=== PATIENT | male | born 1935 | race Caucasian/White ===

== ENCOUNTER 2017-05-22 13:05 | Inpatient (IN) | payer MEDICARE, OTHER ==
[2017-05-22 13:09] VITALS: BMI 25.4
--- NOTE | 2017-05-22 14:17 | ED PDOC ---
Arrival/HPI - General Chief Complaint: Trauma Time Seen by Provider: 05/22/17 14:03 Historian: Patient - History of Present Illness Narrative History of Present Illness (Text): 05/22/17 14:17 A 81 year old male, whose past medical history includes chronic back pain, presents to the emergency department for evaluation after a mechanical fall yesterday. Patient reports while ambulating with his walker out of the bathroom he tripped and fell on his left side. Since then, patient has been experiencing pain over his left lower lateral ribs, accompanied by left lower extremity pain. He notes his left leg is more swollen compared to his right leg. Patient denies any loss of consciousness, head trauma, headache, neck pain , nausea, vomiting, chest pain, shortness of breath or any other complaints. PMD: Dr. Smith Time/Duration: Other (Yesterday) Symptom Course: Unchanged Context: Walking, Home Past Medical History - Provider Review Nursing Documentation Reviewed: Yes - Infectious Disease Hx of Infectious Diseases: None - Tetanus Immunization Tetanus Immunization: Unknown - Cardiac Hx Cardiac Disorders: No - Pulmonary Hx Respiratory Disorders: No Hx Asthma: (denies) - Neurological Hx Neurological Disorder: No - HEENT Hx HEENT Disorder: No - Renal Hx Renal Disorder: No - Endocrine/Metabolic Hx Endocrine Disorders: No - Hematological/Oncological Hx AIDS: No Hx Cancer: Yes (prostate with radiation) - Integumentary Hx Dermatological Disorder: No - Musculoskeletal/Rheumatological Hx Falls: No - Gastrointestinal Hx Gastrointestinal Disorders: Yes (CONSTIPATION (CHRONIC),BOWEL OBSTRUCTION,) - Genitourinary/Gynecological Hx Genitourinary Disorders: No Hx Reproductive Disorders: Yes (PROSTATE CA WITH H/O OF RADIATION) - Psychiatric Hx Psychophysiologic Disorder: No Hx Substance Use: No - Surgical History Other/Comment: lumbar decompression laminectomy - Anesthesia Hx Anesthesia: Yes Hx Anesthesia Reactions: No Hx Malignant Hyperthermia: No - Suicidal Assessment Feels Threatened In Home Enviroment: No Family/Social History - Physician Review Nursing Documentation Reviewed: Yes Family/Social History: No Known Family HX Smoking Status: Never Smoked Hx Alcohol Use: No Hx Substance Use: No Hx Substance Use Treatment: No Allergies/Home Meds Allergies/Adverse Reactions: Allergies No Known Allergies Allergy (Verified 05/29/15 22:25) Home Medications: Home Meds Medication Instructions Recorded Confirmed LORazepam [Ativan] 0.5 mg PO HS PRN 05/26/15 05/22/17 Multivitamin and [id number] 1 tab PO DAILY 05/26/15 06/07/15 [B-Complex Vit Plus] Tizanidine Hydrochloride 4 mg PO HS 05/26/15 06/07/15 [Tizanidine HCl] Docusate [Colace] 100 mg PO BID 05/22/17 05/22/17 Pregabalin [Lyrica] 100 mg PO TID 05/22/17 05/22/17 Vitamin B Complex [Balance B-100] 1 tab PO DAILY 05/22/17 05/22/17 traMADol [Ultram] 1 tab PO BID 05/22/17 05/22/17 Physical Exam - Physical Exam Narrative Physical Exam (Text): - Review of Systems Constitutional: Normal. absent: Fatigue, Weight Change, Fevers Eyes: Normal ENT: Normal Respiratory: Normal absent: SOB, Cough, Sputum Cardiovascular: Normal absent: Chest pain, Palpitations, Syncope Gastrointestinal: Normal absent: Abdominal pain, Diarrhea, Nausea, Vomiting Genitourinary: Normal. absent: Dysuria, Frequency, Hematuria Musculoskeletal: (+) Left lower lateral rib pain, left lower extremity pain and swelling. absent: Arthralgias, Back Pain, Neck Pain Skin: Normal Neurological: Normal absent: Focal Weakness Endocrine: Normal Hemo/Lymphatic: Normal Psychiatric: Normal - Physical exam Patient appears age appropriate, speaking full sentences without difficulty Head atraumatic. No nasal bone deformity or tenderness, no facial or jaw pain/ swelling. No neck midline tenderness, thoracic and lumbar spine with no midline tenderness. Pt moving b/l upper and lower extremities without difficulty, 5/5 strength, with full active and passive ROM. Distal neurovasc fully intact. Abd soft/nt/nd, no hematomas, no peritoneal signs. Neg. pelvic rock. - Systems Exam Head: Present: Atraumatic, Normocephalic Pupils: Present: PERRL Extraocular Muscles: Present: EOMI Conjunctiva: Present: Normal Mouth: Present: Moist Mucous Membranes Neck: Present: Normal Range of Motion. No: MIDLINE TENDERNESS, Paraspinal Tenderness Respiratory/Chest: Present: Point tenderness to left lower lateral ribs with small superficial bruising. Clear to Auscultation, Good Air Exchange. No: Respiratory Distress, Accessory Muscle Use, Tachypnic Cardiovascular: Present: Regular Rate and Rhythm, Normal S1, S2, Peripheral Pulses Present. No: Murmurs Abdomen: Present: Normal Bowel Sounds, No: Tenderness, Peritoneal Signs, Rebound, Guarding, Distention Back: Present: Normal Inspection. No: Midline Tenderness, Paraspinal Tenderness Upper Extremity: Present: Normal Inspection. No: Cyanosis, Edema Lower Extremity: Present: Left lower extremity significantly more swollen than right. Positive pulse. No discoloration. Normal appearing skin, warm to touch. Neurological: Present: GCS=15, Speech Normal, cranial nerves II through XII fully intact with no cerebellar abnormality, neuro-sensory fully intact. No focal neurological deficits. Skin: Present: Warm, Dry, Normal Color. No: Rashes Lymphatic: Present: OX3, NI, NC Psychiatric: Present: Alert, Oriented x 3, Normal Insight, Normal Concentration Vital Signs Reviewed: Yes Vital Signs Temp Pulse Resp BP Pulse Ox 05/22/17 13:27 97.8 F 72 18 174/82 H 97 Temperature: Afebrile Blood Pressure: Hypertensive Pulse: Regular Respiratory Rate: Normal Appearance: Positive for: Well-Appearing, Non-Toxic, Comfortable Pain Distress: None Mental Status: Positive for: Alert and Oriented X 3 Medical Decision Making ED Course and Treatment: 05/22/17 14:17 Impression: A 81 year old male with left lower lateral rib pain and left lower extremity pain/swelling after a mechanical fall yesterday. Plan: -- Head CT -- Bilateral duplex lower extremity ultrasound -- Left Ankle XR -- Left Knee w/ Patella XR -- Left Rib XR -- Left Hip XR -- EKG -- Labs -- Toradol -- Reassess and disposition Progress Notes: EKG: Ordered, reviewed, and independently interpreted the EKG. Rate : 87 BPM Rhythm : NSR Interpretation : No ST-segment elevations, normal axis, normal intervals, PVCs. Interpreted by me. 05/22/17 16:22 sahil [employer], states pt has L. DVT lovenox ordered Dr. Sarah shannon, awaiting callback 05/22/17 16:29 sahil Smith, agrees with admission, asked to speak with Dr. Gaines who's covering CT Head Dr. Mackey IMPRESSION: No acute intracranial hemorrhage. Moderate chronic white matter ischemic changes. Moderate central volume loss. sahil Gaines, accepted admission pt aware of and agrees with plan 05/22/17 16:39 xrays show no acute fx's or dislocations pt's rib series captured some bowel as well, shows some dilated loops. No air fluid levels. Pt states he has a long standing hx of constipation and that he has no abd pain, no n/v. Pt's abd is soft/nt/nd - Lab Interpretations Lab Results: 05/22/17 14:25 05/22/17 14:25 Lab Results 05/22/17 14:25: Sodium 139, Potassium 3.9, Chloride 102, Carbon Dioxide 29, Anion Gap 12, BUN 19, Creatinine 0.7, Est GFR ( Amer) > 60, Est GFR (Non- Af Amer) > 60, Random Glucose 94, Calcium 9.1, Total Bilirubin 0.9, AST 20, ALT 18, Alkaline Phosphatase 72, Total Protein 6.7, Albumin 3.8, Globulin 2.9, Albumin/Globulin Ratio 1.3 05/22/17 14:25: WBC 5.4, RBC 4.60, Hgb 12.5 L, Hct 36.8 L, MCV 80.0, MCH 27.2, MCHC 34.0, RDW 13.9, Plt Count 143, MPV 10.0, Gran % 70.2 H, Lymph % (Auto) 18.2 L, Boone % (Auto) 9.5 H, Eos % (Auto) 1.5, Baso % (Auto) 0.6, Gran # 3.79, Lymph # 1.0 L, Boone # 0.5, Eos # 0.1, Baso # 0.03 I have reviewed the lab results: Yes - RAD Interpretation Radiology Orders: 05/22/17 14:14 HEAD W/O CONTRAST [CT] Stat DUPLEX LOWER EXTRM VEIN BILAT [US] Stat 05/22/17 14:15 RIBS LEFT & PA CHEST [RAD] Stat 05/22/17 14:16 ANKLE LEFT 3 VIEWS ROUTINE [RAD] Stat HIP MIN 2V W/ PELVIS GAUTAM [RAD] Stat KNEE LEFT 2 VIEWS (AP & LAT) [RAD] Stat - Medication Orders Current Medication Orders: Discontinued Medications Enoxaparin Sodium (Lovenox) 70 mg SC STAT STA PRN Reason: Protocol Stop: 05/22/17 16:22 Ketorolac Tromethamine (Toradol) 30 mg IM STAT STA Stop: 05/22/17 14:16 Last Admin: 05/22/17 14:51 Dose: 30 mg - Scribe Statement The provider has reviewed the documentation as recorded by the Lawanda Ponce training under Malathi Reynoso Provider Scribe Attestation: All medical record entries made by the Scribe were at my direction and personally dictated by me. I have reviewed the chart and agree that the record accurately reflects my personal performance of the history, physical exam, medical decision making, and the department course for this patient. I have also personally directed, reviewed, and agree with the discharge instructions and disposition. Disposition/Present on Arrival - Present on Arrival Any Indicators Present on Arrival: No History of DVT/PE: No History of Uncontrolled Diabetes: No Urinary Catheter: No History of Decub. Ulcer: No History Surgical Site Infection Following: None - Disposition Have Diagnosis and Disposition been Completed?: Yes Diagnosis: DVT (deep venous thrombosis) Disposition: HOSPITALIZED Disposition Time: 16:34 Patient Plan: Admission Condition: FAIR Referrals: Kian Smith MD [Primary Care Provider] - Follow up with primary Forms: Scancell (Latvian)
[2017-05-22 14:54] LABS: BASO # 0.03 K/mm3 (0.0-2.0); BASO % 0.6 % (0.0-3.0); EOS # 0.1 (0.0-0.7); EOS % 1.5 % (1.5-5.0); GRAN # 3.79 (1.4-6.5); GRAN % 70.2 % (50.0-68.0); HEMOGLOBIN 12.5 gm/dL (14.0-18.0); LYMPH % 18.2 % (22.0-35.0); MEAN CORPUSCULAR HEMOGLOBIN 27.2 pg (25.0-35.0); MONO # 0.5 (0.1-0.6); MONO % 9.5 % (1.0-6.0); PLATELET COUNT 143 10^3/uL (120.0-450.0); RED CELL DISTRIBUTION WIDTH 13.9 % (11.5-14.5); WHITE BLOOD COUNT 5.4 10^3/ul (4.5-11.0)
[2017-05-22 15:04] LABS: ALB/GLOB RATIO 1.3 (1.1-1.8); ALBUMIN 3.8 g/dL (3.0-4.8); ALT/SGPT 18 U/L (7-56); AST/SGOT 20 U/L (15-59); BLOOD UREA NITROGEN 19 mg/dL (7-21); CALCIUM 9.1 mg/dL (8.4-10.5); GFR AFRICAN-AMERICAN > 60; GFR NON-AFRICAN AMERICAN > 60
--- NOTE | 2017-05-22 15:14 | CT ---
PROCEDURE: CT HEAD WITHOUT CONTRAST. HISTORY: fall COMPARISON: None available. TECHNIQUE: Axial computed tomography images were obtained through the head/brain without intravenous contrast. Radiation dose: Total exam DLP = 769.41 mGy-cm. This CT exam was performed using one or more of the following dose reduction techniques: Automated exposure control, adjustment of the mA and/or kV according to patient size, and/or use of iterative reconstruction technique. FINDINGS: HEMORRHAGE: No acute parenchymal, subarachnoid nor extra-axial hemorrhage. BRAIN: Moderate diffuse/confluent chronic white matter ischemic changes again seen extending peripherally into the deep and subcortical white matter both cerebral hemispheres. . There may also be small chronic appearing right pontine lacunar type infarct. Moderate central volume loss evidenced by disproportionate enlargement of the ventricles as compared sulci. Vascular calcifications again noted. VENTRICLES: No evidence of obstructive type hydrocephalus. Prominent left ring cisterna magna. CALVARIUM: There are no acute calvarial fracture seen. PARANASAL SINUSES: Unremarkable as visualized. No significant inflammatory changes. MASTOID AIR CELLS: Unremarkable as visualized. No inflammatory changes. OTHER FINDINGS: None. IMPRESSION: No acute intracranial hemorrhage. Moderate chronic white matter ischemic changes. Moderate central volume loss.
[2017-05-22] MEDS ORDERED: Enoxaparin 80 mg Syringe SC STA (16:21)
--- NOTE | 2017-05-22 16:46 | RAD ---
PROCEDURE: Left ankle 05/22/17 HISTORY: fall COMPARISON: None FINDINGS: BONES: Current study reveals no definitive radiographic evidence of acute displaced fracture nor dislocation. Osseous structures occluded talar dome appear intact so far as can be seen through clothing artifact. If symptoms persist or occult fracture suspected clinically recommend repeat radiographs in 5-10 days as most fractures should become radiographically evident in this timeframe. Alternatively, MRI could be performed. For cyst. Small plantar and posterior calcaneal enthesophytes a present JOINTS: Ankle mortise maintained. SOFT TISSUES: Mild bilateral diffuse soft tissue swelling with infiltration changes extend proximally into distal soft tissues of the calf. OTHER FINDINGS: None. IMPRESSION: No evidence of acute displaced fracture nor dislocation. Mild bilateral diffuse soft tissue swelling with infiltration changes extend proximally into distal soft tissues of the calf. If symptoms persist or occult fracture suspected clinically recommend repeat radiographs in 5-10 days as most fractures should become radiographically evident in this timeframe.
--- NOTE | 2017-05-22 17:01 | RAD ---
PROCEDURE: Left Knee Radiographs. HISTORY: Pain. COMPARISON: No prior study available comparison FINDINGS: BONES: Current study reveals no evidence of acute displaced fracture or dislocation. JOINTS: There is slight inferior angulation of the aspect medial tibial plateau which is felt to be developmental. . . Small anterior superior patella enthesophyte. JOINT EFFUSION: Questionable trace joint effusion. OTHER FINDINGS: There appears be some vague infiltration changes in the subcutaneous tissues more so laterally IMPRESSION: No evidence of acute displaced fracture nor dislocation.
--- NOTE | 2017-05-22 17:05 | RAD ---
PROCEDURE: Pelvis and bilateral hips dated 05/21/2017 AP view of the pelvis and lateral views both hips performed HISTORY: Status post fall COMPARISON: Comparison made with prior radiographs of the pelvis and both hips 06/04/2015. FINDINGS: The current study reveals no evidence of acute displaced fracture nor dislocation. The osseous structures appear intact. Both femoral heads appropriately located within the respective acetabula. Mild bilateral joint space narrowing. . The SI joints are intact and patent. If symptoms persist or occult fracture suspected clinically consider followup CT scan. Mild degenerative spondylosis of the lower lumbosacral 1st caps spine Impression: No evidence of acute displaced fracture nor dislocation. Mild DJD both hip joints. . If symptoms persist or occult fracture suspected clinically consider additional imaging studies as above.
--- NOTE | 2017-05-22 17:16 | RAD ---
PROCEDURE: Chest and left rib series 05/22/2027 the HISTORY: Status post fall. COMPARISON: Comparison made with prior chest radiograph 04/20/2015 TECHNIQUE: Frontal radiograph of the chest and multiple oblique radiographs of the left ribs were obtained. FINDINGS: LEFT RIBS: Note definitive radiographic evidence of acute displaced left-sided rib fracture. Note that the lower ribs are poorly seen due to bowel related artifact (stool and air). LUNGS: Poor inspiration with low lung volumes, mild crowded bronchovascular markings and mild bibasilar atelectasis left greater than right. PLEURA: No no apparent effusion or pneumothorax so far as can be seen. CARDIOVASCULAR: Heart size upper limits of normal/borderline enlarged. Aorta is slightly ectatic and uncoiled. OTHER FINDINGS: Metallic clips right upper quadrant of the abdomen consistent prior cholecystectomy. Multiple mildly distended air-filled loops of bowel present. Multilevel degenerative spondylosis of the thoracic and lumbar spine. There is a mild dextroscoliosis centered at the thoracolumbar junction. IMPRESSION: Poor inspiration with low lung volumes, mild crowded bronchovascular markings and mild bibasilar atelectasis. No definitive evidence of pneumothorax or obvious acute displaced left-sided rib fracture however if there is any concern, recommend followup CT scan of the chest.
[2017-05-22] MEDS ORDERED: Ergocalciferol 50,000 Intl Units Cap PO SCH (18:15)
--- NOTE | 2017-05-22 18:25 | US ---
HISTORY: Leg pain and swelling. Evaluate for DVT PHYSICIAN(S): Patrick Luong MD. TECHNIQUE: Duplex sonography and color-flow Doppler with graded compression were used to evaluate the deep venous systems of both lower extremities. FINDINGS: There is occlusive hypoechoic thrombus seen in the left common femoral vein and throughout the left femoral vein. The left popliteal vein is patent. The superior extent of the thrombus is not defined. There is no sonographic evidence for deep venous thrombosis in the visualized segments of the right lower extremity IMPRESSION: Hypoechoic acute occlusive thrombus in the left common femoral vein and throughout the left femoral vein.
[2017-05-22] MEDS: Enoxaparin 80 mg Syringe SC SCH (18:28)
[2017-05-22] MEDS ORDERED: Pneumococcal 23-Valent Vaccine IM ONE (20:44)
--- NOTE | 2017-05-22 22:46 | CARD ---
APPROVED REPORT EKG Measurement Heart [id number] <Conclusion> Sinus rhythm with occasional premature ventricular complexes Left anterior fascicular block Abnormal ECG
[2017-05-23] MEDS: Enoxaparin 80 mg Syringe SC SCH ×2 (05:48→18:41)
--- NOTE | 2017-05-23 06:00 | HP ---
HISTORY OF PRESENT ILLNESS: The patient is seen in the emergency room. This is a patient of Dr. Kian Smith. I am covering for him. The patient presented to the emergency room with severe pain in the left side of the rib and the lower back. He stated he had a fall and since then, his left leg has been swollen and he had discomfort on the left side and he came in for medical evaluation. The patient was seen in the emergency room by a physician here and evaluated. The patient's swelling in the leg is noted. They did ultrasound Doppler study of the leg, deep venous thrombosis was diagnosed. The patient also has a past history of lumbar surgery, laminectomy. The patient has past history of hypertension and hyperlipidemia. The patient has no history of any other surgery. ALLERGIES: HE HAS NO KNOWN ALLERGIES. He does not have living will. The patient's complaint now is that he has pain and the swelling of the leg. The patient has been admitted to the hospital for treatment for DVT and the patient will be given the Lovenox twice a day and we will monitor the patient for his general medical condition. PHYSICAL EXAMINATION: GENERAL: The patient is lying down in bed and he is very pleasant. He has some pain and discomfort on the left side in the lower ribs and the lower back. The patient also has swelling on the left leg which is new. HEENT: Head is normocephalic. The patient's eyes are normal. NECK: The JVP is flat. There is no lymphadenopathy in the neck. LUNGS: Trachea is central. Breath sounds are vesicular. No adventitious sounds are heard. HEART: NSR. S1 and S2 present. ABDOMEN: Soft. Liver and spleen not palpable. No ascites. No masses. RECTAL: Deferred, but the patient has chronic history of constipation. Apparently, the patient has had prostate carcinoma, and he has had radiation treatment in the past. MANAGER PHILOSOPHY: He is conscious, rational, oriented. His cranial nerves are intact II through XII. His sense of smell is intact. MOTOR AND SENSORY FUNCTION: There are no abnormalities clinically detected. The patient's cerebral function is not tested at this time. The patient is not able to get up and walk, does this with difficulty. He has had a fall, but he has had ability to ambulate in the past. The patient's leg of course shows evidence of swelling, and he does not have a positive Homans sign, though the DVT is detected by ultrasound. MEDICATION LIST: The patient is on Ativan 0.5 mg at night p.r.n. The patient is on Colace 3 times a day. The patient is on Flomax 0.4 mg daily, folic acid 1 mg daily. The patient is on Lidoderm patch for back pain, Lipitor 40 mg daily. The patient has been placed on Lovenox 30 mg SQ q.12 hours. The patient is going to be put on Lyrica. The patient has been taking that before 100 mg 3 times a day. The patient is on MiraLAX 17g 3 times a day, Neurontin 100 mg 3 times a day, Proscar 5 mg daily, atenolol 12.5 mg daily, and the patient is also on Tramadol p.r.n. for pain, vitamin D 2000 units p.o. daily. He is on a heart healthy diet. The patient will be evaluated for his problems. His lungs are clear. Pulmonary function seems to be clinically okay at this time. LABORATORY DATA: The sugar is 94. His BUN and creatinine are within normal limits. His GFR is within normal limits. His hemoglobin is 12.5, his white count is 5400, and platelet count is good. His total platelet count is around 420,000 at this time. We will monitor the patient's blood work. Continue the Lovenox as started, and we will continue all his medications. Now that he has been detected and treated, his prognosis should be good. His, overall, condition is stable at this time. Nuvia Oconnor MD MTDD
[2017-05-23 07:42] LABS: BASO # 0.02 K/mm3 (0.0-2.0); BASO % 0.4 % (0.0-3.0); EOS # 0.2 (0.0-0.7); GRAN # 2.59 (1.4-6.5); GRAN % 53.8 % (50.0-68.0); HEMOGLOBIN 11.1 gm/dL (14.0-18.0); LYMPH # 1.6 (1.2-3.4); LYMPH % 32.2 % (22.0-35.0); MEAN CELL VOLUME 79.8 fL (80.0-105.0); MEAN CORPUSCULAR HEMOGLOBIN 26.1 pg (25.0-35.0); MEAN CORPUSCULAR HGB CONC 32.6 g/dl (31.0-37.0); MEAN PLATELET VOLUME 10.3 fl (7.0-11.0); MONO # 0.5 (0.1-0.6); MONO % 9.6 % (1.0-6.0); PLATELET COUNT 157 10^3/uL (120.0-450.0); RBC 4.26 10^6/uL (3.5-6.1); RED CELL DISTRIBUTION WIDTH 14.2 % (11.5-14.5); WHITE BLOOD COUNT 4.8 10^3/ul (4.5-11.0)
[2017-05-23 08:00] LABS: ALB/GLOB RATIO 1.2 (1.1-1.8); ALBUMIN 3.2 g/dL (3.0-4.8); ALT/SGPT 23 U/L (7-56); AST/SGOT 18 U/L (15-59); BLOOD UREA NITROGEN 24 mg/dL (7-21); CALCIUM 8.5 mg/dL (8.4-10.5); GFR AFRICAN-AMERICAN > 60; GFR NON-AFRICAN AMERICAN > 60
[2017-05-23] MEDS: POLYETHYLENE GLYCOL 3350 17 GM/Dose PACKET PO SCH ×3 (10:29→18:40)
[2017-05-23] MEDS: Lidocaine 5% Patch TD SCH (10:29)
[2017-05-23] MEDS: Albuterol-Ipratrop 3 mg / 0.5 (3 ml) UD IH SCH ×2 (13:15→19:56)
[2017-05-23] MEDS ORDERED: Iohexol 240 (50 ml) ONE (17:18)
[2017-05-23] MEDS ORDERED: Iohexol 350 MG/100 ML VIAL ONE (17:18)
[2017-05-23 17:49] LABS: INR 0.99 (0.93-1.08); PARTIAL THROMBOPLASTIN TIME 32.8 Seconds (23.7-30.8); PROTHROMBIN TIME 10.7 Seconds (9.9-11.8)
[2017-05-23 17:54] LABS: HDL CHOLESTEROL 35 mg/dL (29-60); URIC ACID 5.2 mg/dL (3.5-8.5)
[2017-05-23 18:05] LABS: LDL CHOLESTEROL 127 mg/dL (0-129)
[2017-05-23 18:06] LABS: % IRON SATURATION 11 % (20-55); IRON 32 ug/dL (45-180); TOTAL IRON BINDING CAPACITY 296 ug/dL (261-462)
[2017-05-23 18:14] LABS: FREE T4 1.38 ng/dL (0.78-2.19); T4 7.9 ug/dL (5.5-11.0)
--- NOTE | 2017-05-23 18:28 | PN ---
DATE: 05/23/2017 SUBJECTIVE: The patient was seen in room 262, bed 1. The patient's family is at the bedside. The patient is lying in the bed. The patient is alert, awake, responsive. The patient appears to be comfortable in no distress at present. The patient complains of left leg pain, which is relatively less since his admission to the emergency room yesterday. The patient denies any specific complaints otherwise. Overnight nurse's notes were reviewed. The patient slept overnight. PHYSICAL EXAMINATION: VITAL SIGNS: T-Max, the patient is afebrile, telemetry shows sinus rhythm with some PVCs, heart rate 78-76 and blood pressure of 174/82, 112/70, 114/67, 118/69, and O2 saturation 98%. Intake and output not documented correctly. HEENT: Head examination is normocephalic and atraumatic. HEENT examination shows pinkish conjunctivae and anicteric sclerae. No oropharyngeal lesion. No neck rigidity. CHEST: Kyphosis. LUNGS: Shows no rales, crackles, or wheezing. Questionable decreased breath sound at the bases noted. CARDIOVASCULAR: S1 and S2. Regular rhythm. ABDOMEN: Soft, slightly protuberant and fullness noted in the lower abdomen. GENITALIA: Male. RECTAL: Deferred. EXTREMITIES: Shows positive 2+ pitting edema of the left lower extremity and 1+ pitting edema of the right lower extremity. The patient has decreased range of motion of the lower extremity. VASCULAR: Decreased pulses because of the pitting edema. MUSCULOSKELETAL: She has a body mass index of 26. NEUROLOGIC: Cranial nerves II through XII limited. PSYCHIATRIC: Negative. LABORATORY DATA: Diagnostic data from 05/23/2017, WBC 4.8, hemoglobin and hematocrit 11.1/34.0, platelets 157. Sodium 137, potassium 4.1, chloride 102, CO2 26, anion gap 13, BUN 24, creatinine 1.8, GFR greater than 60, glucose 97, LFTs are normal. The patient's venous Doppler, CT head, rib series, ankle series, hip x-rays, knee x-rays reviewed. EKG reviewed. IMPRESSION: 1. Left lower extremity, possibly unprovoked deep venous thrombosis. 2. 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 3. History of hypertension. 4. History of questionable type 2 diabetes mellitus. 5. History of chronic constipation. 6. History of cholecystectomy. 7. History of degenerative joint disease of the lumbar spine with laminectomy. 8. History of T12 compression fracture. 9. History of gait dysfunction. 10. History of prostate carcinoma with history of radiation treatment. 11. Past medical history is also significant for chronic constipation, history of hypovitaminosis D, history of prostatic hypertrophy, history of dyslipidemia, and history of neuropathy. 12. Mild normocytic anemia with granulocytosis. 13. 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 14. Left common femoral vein and left femoral vein occlusive hypoechoic thrombus, probably unprovoked. 15. Status post fall with gait dysfunction. 16. 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 17. 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 18. Prominent left ring cisterna magna. 19. Left ribcage and hip and pelvic contusion secondary to fall. 20. Bibasilar atelectasis. 21. Cardiomegaly. 22. Cholecystectomy. 23. Degenerative joint disease of the thoracic and lumbar spine with dextroscoliosis of the thoracolumbar spine. 24. Bilateral hip joint narrowing. 25. Lumbar spine degenerative spondylosis. 26. Degenerative joint disease of the hips. 27. History of constipation with bowel diagnosis. 28. History of prostate carcinoma. 29. Degenerative joint disease with compression of the lumbar spine. 30. History of severe gait dysfunction and recurrent fall. 31. 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 32. Bilateral lower extremity weakness. 33. Severe lumbar spinal stenosis. 34. L2-L5 decompressive laminectomy. 35. T12 compression fracture. 36. Lumbar spine degenerative disk disease, disk bulging, and spinal stenosis. 37. Vitamin B12 deficiency. 38. History of prostatic hypertrophy. 39. Insomnia. 40. Anxiety disorder. 41. Atelectasis. 42. Multilevel lumbar spine degenerative disk disease and T12 compression fracture in 2015. 43. History of left lower extremity weakness with left footdrop. 44. L2-L5 decompression lumbar laminectomy. 45. Vitamin B12 and folate deficiency. 46. Aortic valve sclerosis. PLAN: At this time, the patient has been seen in room 262, bed 1. The patient has been ordered iron studies, lipid panel, TSH, thyroid panel, vitamin B12, vitamin D, hypercoagulable workup, and testing has been all ordered. Consultation with Gastroenterology and Dr. Patrick Luong from Interventional Radiology has been ordered for evaluation of possible underlying malignancy as a cause of DVT and for evaluation for possible IVC filter placement by Dr. Luong respectively. CURRENT MEDICATIONS: The patient is on Ativan 0.5 mg at bedtime p.r.n., Colace 100 mg twice a day, Drisdol 50,000 weekly, DuoNeb nebulizer every 6 hours, Flomax 0.4 mg daily, folic acid 1 mg daily, Lasix 20 mg IV q.12 hours, Lidoderm 5% patch to the affected area, Lipitor 40 mg daily, Lovenox 70 mg subcu q.12 hours, Lyrica 100 mg 3 times a day, MiraLax 17 g 3 times a day, Neurontin 100 mg 3 times a day, Proscar 5 mg daily, Protonix 40 mg daily, Tenormin 12.5 daily, Ultram 50 mg twice a day, and vitamin D3 2000 IU daily. CAT scan of the chest, abdomen, and pelvis has been ordered for evaluation of possible underlying malignancy. Incentive spirometry ordered. Stool for occult ordered x3. At present, the patient has been ordered all the above diagnostic therapeutic interventions. The patient's further management will depend upon the availability of the patient's diagnostic data, which will guide us with the further management and treatment of the patient. At present, the patient and the patient's daughter has been updated about the patient's condition, need for further diagnostic therapeutic intervention, which is needed for the patient's further management. Kian Smith MD
[2017-05-23] MEDS: Pantoprazole 40 mg EC Tab PO SCH (18:44)
[2017-05-23 23:19] LABS: FOLATE > 20.0 ng/mL
[2017-05-24] MEDS: Albuterol-Ipratrop 3 mg / 0.5 (3 ml) UD IH SCH ×5 (01:05→19:19)
[2017-05-24] MEDS: Pantoprazole 40 mg EC Tab PO SCH (05:55)
[2017-05-24] MEDS: Enoxaparin 80 mg Syringe SC SCH ×2 (05:55→20:26)
[2017-05-24 07:20] LABS: BASO # 0.03 K/mm3 (0.0-2.0); BASO % 0.5 % (0.0-3.0); EOS % 0.3 % (1.5-5.0); GRAN % 71.1 % (50.0-68.0); HEMOGLOBIN 12.3 gm/dL (14.0-18.0); LYMPH # 1.3 (1.2-3.4); LYMPH % 20.2 % (22.0-35.0); MEAN CELL VOLUME 79.1 fL (80.0-105.0); MEAN CORPUSCULAR HEMOGLOBIN 26.2 pg (25.0-35.0); MEAN CORPUSCULAR HGB CONC 33.1 g/dl (31.0-37.0); MEAN PLATELET VOLUME 9.8 fl (7.0-11.0); MONO # 0.5 (0.1-0.6); MONO % 7.9 % (1.0-6.0); PLATELET COUNT 219 10^3/uL (120.0-450.0); RED CELL DISTRIBUTION WIDTH 13.9 % (11.5-14.5); WHITE BLOOD COUNT 6.5 10^3/ul (4.5-11.0)
[2017-05-24 07:34] LABS: ALB/GLOB RATIO 1.3 (1.1-1.8); ALBUMIN 3.6 g/dL (3.0-4.8); ALT/SGPT 26 U/L (7-56); AST/SGOT 22 U/L (15-59); BILIRUBIN,DIRECT 0.2 mg/dL (0.0-0.4); BLOOD UREA NITROGEN 33 mg/dL (7-21); CALCIUM 8.7 mg/dL (8.4-10.5); GFR AFRICAN-AMERICAN > 60; GFR NON-AFRICAN AMERICAN > 60; MAGNESIUM 1.8 mg/dL (1.7-2.2)
--- NOTE | 2017-05-24 08:17 | CP.PCM.PN ---
Subjective - Date & Time of Evaluation Date of Evaluation: 05/24/17 Time of Evaluation: 08:00 - Subjective Subjective: Patient is seen this morning. He is drinking contrast for CAT scan. He complaints of pain in the left leg. Objective - Vital Signs/Intake and Output Vital Signs (last 24 hours): Temp Pulse Resp BP Pulse Ox 98.4 F 96 H 19 103/62 96 05/24/17 06:00 05/24/17 06:00 05/24/17 06:00 05/24/17 06:00 05/24/17 06:00 - Medications Medications: Current Medications Albuterol/Ipratropium (Duoneb 3 Mg/0.5 Mg (3 Ml) Ud) 3 ml IH [id number] [facility] Last Admin: 05/24/17 07:30 Dose: 3 ml Atenolol (Tenormin) 12.5 mg PO DAILY [facility] Last Admin: 05/23/17 13:51 Dose: 12.5 mg Atorvastatin Calcium (Lipitor) 40 mg PO DIN [facility] Last Admin: 05/23/17 18:41 Dose: 40 mg Cholecalciferol (Vitamin D) 2,000 iu PO DAILY [facility] Last Admin: 05/23/17 10:31 Dose: 2,000 iu Docusate Sodium (Colace) 100 mg PO BID [facility] Last Admin: 05/23/17 18:40 Dose: 100 mg Enoxaparin Sodium (Lovenox) 70 mg SC Q12H [facility] PRN Reason: Protocol Last Admin: 05/24/17 05:55 Dose: 70 mg Ergocalciferol (Drisdol 50,000 Intl Units Cap) 1 cap PO Q7D [facility] Last Admin: 05/22/17 20:07 Dose: 1 cap Finasteride (Proscar) 5 mg PO DAILY [facility] Last Admin: 05/23/17 10:31 Dose: 5 mg Folic Acid (Folic Acid) 1 mg PO DAILY [facility] Last Admin: 05/23/17 10:32 Dose: 1 mg Furosemide (Lasix) 20 mg IVP Q12 [facility] Last Admin: 05/23/17 21:49 Dose: 20 mg Gabapentin (Neurontin) 100 mg PO TID [facility] PRN Reason: Protocol Last Admin: 05/23/17 18:42 Dose: 100 mg Lidocaine (Lidoderm) 1 ea TD DAILY [facility] Last Admin: 05/23/17 10:29 Dose: 1 ea Lorazepam (Ativan) 0.5 mg PO HS PRN; Protocol PRN Reason: Anxiety Last Admin: 05/23/17 21:50 Dose: 0.5 mg Pantoprazole Sodium (Protonix Ec Tab) 40 mg PO 0600 [facility] Last Admin: 05/24/17 05:55 Dose: 40 mg Polyethylene Glycol (Miralax) 17 gm PO TID [facility] Last Admin: 05/23/17 18:40 Dose: 17 gm Pregabalin (Lyrica) 100 mg PO TID [facility] Last Admin: 05/23/17 18:41 Dose: 100 mg Tamsulosin HCl (Flomax) 0.4 mg PO DAILY [facility] Last Admin: 05/23/17 10:31 Dose: 0.4 mg Tramadol HCl (Ultram) 50 mg PO BID [facility] Last Admin: 05/23/17 18:40 Dose: 50 mg - Labs Labs: 05/24/17 07:11 05/24/17 07:11 PT 10.7 Seconds (9.9-11.8) 05/23/17 17:10 INR 0.99 (0.93-1.08) 05/23/17 17:10 APTT 32.8 Seconds (23.7-30.8) H 05/23/17 17:10 - Constitutional Appears: No Acute Distress - Head Exam Head Exam: ATRAUMATIC, NORMOCEPHALIC - Respiratory Exam Respiratory Exam: Clear to Ausculation Bilateral, NORMAL BREATHING PATTERN - Cardiovascular Exam Cardiovascular Exam: +S1, +S2 - GI/Abdominal Exam GI & Abdominal Exam: Soft. absent: Tenderness - Extremities Exam Additional comments: + L LE edema - Neurological Exam Neurological Exam: Alert, Awake, Oriented x3 Assessment and Plan - Assessment and Plan (Free Text) Assessment: Left lower extremity DVT HTN Degenerative joint disease Plan: Patient is on therapeutic lovenox for left lower extremity deep vein thrombosis. He is to go for CAT scan today to rule out malignancy. continue home maintenance medications
[2017-05-24] MEDS: POLYETHYLENE GLYCOL 3350 17 GM/Dose PACKET PO SCH ×3 (10:16→18:27)
[2017-05-24] MEDS: Lidocaine 5% Patch TD SCH (10:23)
--- NOTE | 2017-05-24 10:51 | CP.PCM.CON ---
<Jakub Powers - Last Filed: 05/24/17 10:57> History of Present Illness - History of Present Illness History of Present Illness: PGY5 GI Fellow Consult Note Patient is an 81yo male with PMHx significant for prostate cancer s/p XRT, chronic idiopathic constipation, diabetes mellitus, spinal stenosis who presented to the hospital with left leg pain. Patient states he fell 5 days prior to admission and developed progressively worsening left rib, flank and leg discomfort. On admission he was found to have an acute thrombus of the left femoral and common femoral veins. He has since been started on therapeutic lovenox. Our service is consulted to rule out an occult malignancy. The patient admits to chronic constipation for several years, currently on Linzess, Miralax and Colace at home. Has not had BM in last 4-5 days and has diffuse abdominal discomfort from this, leading to decreased PO intake. Believes he has lost 10lbs in last 2 months as a result. Does not have adequate water/fiber intake per his own account. States symptoms of constipation have worsened of late and that Linzess has only been modestly effective in relieving this. Denies any hematochezia, melena, nausea, vomiting. Has had multiple screening colonoscopies and had hx of polyps previously. Last colonoscopy was approximately 4 years ago and unremarkable per patient. PMHx: See HPI PSHx: Decompressive laminectomy L2-L5, cholecystectomy FHx: Discussed with patient and denies any significant family history Social: Denies tobacco, EtOH, illicit drug use Endo: 3-4 prior colonoscopy 12 system ROS performed and negative except where stated in HPI Past Patient History - Infectious Disease Hx of Infectious Diseases: None - Tetanus Immunizations Tetanus Immunization: Unknown - Past Medical History & Family History Past Medical History?: No - Past Social History Smoking Status: Never Smoked - CARDIAC Hx Hypertension: Yes - PULMONARY Hx Respiratory Disorders: No Hx Asthma: (denies) - NEUROLOGICAL Hx Neurological Disorder: No - HEENT Hx HEENT Problems: No - RENAL Hx Chronic Kidney Disease: No - ENDOCRINE/METABOLIC Hx Endocrine Disorders: No - HEMATOLOGICAL/ONCOLOGICAL Hx AIDS: No Hx Cancer: Yes (prostate with radiation) - INTEGUMENTARY Hx Dermatological Problems: No - MUSCULOSKELETAL/RHEUMATOLOGICAL Hx Falls: Yes (fell yesterday) - GASTROINTESTINAL Hx Gastrointestinal Disorders: Yes (CONSTIPATION (CHRONIC),BOWEL OBSTRUCTION,) - GENITOURINARY/GYNECOLOGICAL Hx Genitourinary Disorders: No - PSYCHIATRIC Hx Substance Use: No - SURGICAL HISTORY Hx Cholecystectomy: Yes Other/Comment: lumbar decompression laminectomy - ANESTHESIA Hx Anesthesia: Yes Hx Anesthesia Reactions: No Hx Malignant Hyperthermia: No Meds Allergies/Adverse Reactions: Allergies Allergy/AdvReac Type Severity Reaction Status Date / Time No Known Allergies Allergy Verified 05/29/15 22:25 - Medications Medications: Current Medications Albuterol/Ipratropium (Duoneb 3 Mg/0.5 Mg (3 Ml) Ud) 3 ml IH [id number] [facility] Last Admin: 05/24/17 07:30 Dose: 3 ml Atenolol (Tenormin) 12.5 mg PO DAILY [facility] Last Admin: 05/24/17 10:16 Dose: 12.5 mg Atorvastatin Calcium (Lipitor) 40 mg PO DIN [facility] Last Admin: 05/23/17 18:41 Dose: 40 mg Cholecalciferol (Vitamin D) 2,000 iu PO DAILY [facility] Last Admin: 05/24/17 10:12 Dose: 2,000 iu Docusate Sodium (Colace) 100 mg PO BID [facility] Last Admin: 05/24/17 10:13 Dose: 100 mg Enoxaparin Sodium (Lovenox) 70 mg SC Q12H [facility] PRN Reason: Protocol Last Admin: 05/24/17 05:55 Dose: 70 mg Ergocalciferol (Drisdol 50,000 Intl Units Cap) 1 cap PO Q7D [facility] Last Admin: 05/22/17 20:07 Dose: 1 cap Finasteride (Proscar) 5 mg PO DAILY [facility] Last Admin: 05/24/17 10:14 Dose: 5 mg Folic Acid (Folic Acid) 1 mg PO DAILY [facility] Last Admin: 05/24/17 10:22 Dose: 1 mg Furosemide (Lasix) 20 mg IVP Q12 [facility] Last Admin: 05/24/17 10:22 Dose: 20 mg Gabapentin (Neurontin) 100 mg PO TID [facility] PRN Reason: Protocol Last Admin: 05/24/17 10:13 Dose: 100 mg Lidocaine (Lidoderm) 1 ea TD DAILY [facility] Last Admin: 05/24/17 10:23 Dose: 1 ea Lorazepam (Ativan) 0.5 mg PO HS PRN; Protocol PRN Reason: Anxiety Last Admin: 05/23/17 21:50 Dose: 0.5 mg Pantoprazole Sodium (Protonix Ec Tab) 40 mg PO 0600 [facility] Last Admin: 05/24/17 05:55 Dose: 40 mg Polyethylene Glycol (Miralax) 17 gm PO TID [facility] Last Admin: 05/24/17 10:16 Dose: 17 gm Pregabalin (Lyrica) 100 mg PO TID [facility] Last Admin: 05/24/17 10:13 Dose: 100 mg Tamsulosin HCl (Flomax) 0.4 mg PO DAILY [facility] Last Admin: 05/24/17 10:13 Dose: 0.4 mg Tramadol HCl (Ultram) 50 mg PO BID [facility] Last Admin: 05/24/17 10:14 Dose: 50 mg Physical Exam - Constitutional Appears: Non-toxic, No Acute Distress - Eye Exam Eye Exam: EOMI, PERRL - ENT Exam ENT Exam: Mucous Membranes Moist - Respiratory Exam Respiratory Exam: Clear to Auscultation Bilateral. absent: Rales, Rhonchi, Wheezes - Cardiovascular Exam Cardiovascular Exam: RRR, +S1, +S2 - GI/Abdominal Exam GI & Abdominal Exam: Distended, Normal Bowel Sounds, Soft, Tenderness. absent: Firm, Guarding, Organomegaly, Rigid - Extremities Exam Extremities exam: Positive for: normal inspection. Negative for: pedal edema - Neurological Exam Neurological exam: Alert, Oriented x3 - Psychiatric Exam Psychiatric exam: Normal Affect, Normal Mood - Skin Skin Exam: Dry, Warm Results - Vital Signs Recent Vital Signs: Last Vital Signs Temp 98.4 F 05/24/17 06:00 Pulse 96 H 05/24/17 06:00 Resp 19 05/24/17 06:00 BP 120/70 05/24/17 10:22 Pulse Ox 96 05/24/17 06:00 - Labs Result Diagrams: 05/24/17 07:11 05/24/17 07:11 Labs: Laboratory Results - last 24 hr 05/23/17 05/23/17 05/23/17 17:10 17:10 17:10 WBC RBC Hgb Hct MCV MCH MCHC RDW Plt Count MPV Gran % Lymph % (Auto) Brantley % (Auto) Eos % (Auto) Baso % (Auto) Gran # Lymph # Brantley # Eos # Baso # ESR Retic Count PT 10.7 INR 0.99 APTT 32.8 H Sodium Potassium Chloride Carbon Dioxide Anion Gap BUN Creatinine Est GFR ( Amer) Est GFR (Non-Af Amer) Random Glucose Uric Acid 5.2 Calcium Phosphorus Magnesium Iron TIBC % Saturation Transferrin 219.20 Ferritin 70.0 Total Bilirubin Direct Bilirubin AST ALT Alkaline Phosphatase Total Protein Albumin Globulin Albumin/Globulin Ratio Triglycerides 120 Cholesterol 186 LDL Cholesterol Direct 127 HDL Cholesterol 35 Prostate Specific Ag < 0.1 Vitamin B12 380 25-OH Vitamin D Total Folate > 20.0 Free T4 1.38 Thyroxine (T4) 7.9 TSH 3rd Generation 3.91 05/23/17 05/23/17 05/23/17 17:10 17:10 17:10 WBC RBC Hgb Hct MCV MCH MCHC RDW Plt Count MPV Gran % Lymph % (Auto) Brantley % (Auto) Eos % (Auto) Baso % (Auto) Gran # Lymph # Brantley # Eos # Baso # ESR 40 H Retic Count 1.39 PT INR APTT Sodium Potassium Chloride Carbon Dioxide Anion Gap BUN Creatinine Est GFR ( Amer) Est GFR (Non-Af Amer) Random Glucose Uric Acid Calcium Phosphorus Magnesium Iron 32 L TIBC 296 % Saturation 11 L Transferrin Ferritin Total Bilirubin Direct Bilirubin AST ALT Alkaline Phosphatase Total Protein Albumin Globulin Albumin/Globulin Ratio Triglycerides Cholesterol LDL Cholesterol Direct HDL Cholesterol Prostate Specific Ag Vitamin B12 25-OH Vitamin D Total Folate Free T4 Thyroxine (T4) TSH 3rd Generation 05/23/17 05/24/17 05/24/17 17:10 07:11 07:11 WBC 6.5 D RBC 4.70 Hgb 12.3 L Hct 37.2 L MCV 79.1 L MCH 26.2 MCHC 33.1 RDW 13.9 Plt Count 219 MPV 9.8 Gran % 71.1 H Lymph % (Auto) 20.2 L Brantley % (Auto) 7.9 H Eos % (Auto) 0.3 L Baso % (Auto) 0.5 Gran # 4.60 Lymph # 1.3 Brantley # 0.5 Eos # 0.0 Baso # 0.03 ESR Retic Count PT INR APTT Sodium 132 Potassium 4.1 Chloride 94 L Carbon Dioxide 27 Anion Gap 15 BUN 33 H Creatinine 0.9 Est GFR ( Amer) > 60 Est GFR (Non-Af Amer) > 60 Random Glucose 129 H Uric Acid Calcium 8.7 Phosphorus 5.0 H Magnesium 1.8 Iron TIBC % Saturation Transferrin Ferritin Total Bilirubin 0.9 Direct Bilirubin 0.2 AST 22 ALT 26 Alkaline Phosphatase 67 Total Protein 6.3 Albumin 3.6 Globulin 2.7 Albumin/Globulin Ratio 1.3 Triglycerides Cholesterol LDL Cholesterol Direct HDL Cholesterol Prostate Specific Ag Vitamin B12 25-OH Vitamin D Total 18.1 L Folate Free T4 Thyroxine (T4) TSH 3rd Generation Assessment & Plan - Assessment and Plan (Free Text) Assessment: Patient is an 81yo male with PMHx significant for prostate cancer s/p XRT, chronic idiopathic constipation, diabetes mellitus, spinal stenosis who presented to the hospital with left leg pain. -Provoked acute left lower extremity DVT following recent trauma on fall -Constipation, idiopathic vs medication induced or neurologic (h/o spinal stenosis, DM) -Iron deficiency anemia -H/O prostate cancer s/p XRT -DM -Spinal stenosis Plan: -Patient's DVT is likely provoked given recent fall -CT Chest/Abd/Pelvis ordered and pending -The patient does not meet criteria for routine endoscopic screening for CRC given his age; however if further exploration of his iron deficiency anemia and weight loss are to be explored, colonoscopy could be considered as an outpatient once his acute issues have resolved and he is off anticoagulation -I do suspect CT will reveal significant stool buildup in the colon given his symptoms and clinical examination; the patient should be on an aggressive bowel regimen -Constipation may be a combination of medication use, neurologic (DM and spinal stenosis) -Has only had modest relief with Linzess and could consider increasing dose to 290mcg QD or completely changing medication to Amitiza as an outpatient -Miralax 17g PO BID -Dulcolax 10mg PO QAM -Encourage tap water enemas as needed -Liquid diet until patient can tolerate regular meals - Date & Time Date: 05/24/17 Time: 08:30 <Blaze Ryder MD - Last Filed: 05/25/17 19:08> Meds - Medications Medications: Current Medications Albuterol/Ipratropium (Duoneb 3 Mg/0.5 Mg (3 Ml) Ud) 3 ml IH [id number] [facility] Last Admin: 05/25/17 13:39 Dose: 3 ml Atenolol (Tenormin) 12.5 mg PO BID [facility] Last Admin: 05/25/17 18:11 Dose: 12.5 mg Atorvastatin Calcium (Lipitor) 40 mg PO DIN [facility] Last Admin: 05/25/17 18:11 Dose: 40 mg Cholecalciferol (Vitamin D) 2,000 iu PO DAILY [facility] Last Admin: 05/25/17 10:29 Dose: 2,000 iu Docusate Sodium (Colace) 100 mg PO TID [facility] Last Admin: 05/25/17 18:12 Dose: 100 mg Ergocalciferol (Drisdol 50,000 Intl Units Cap) 1 cap PO Q7D [facility] Last Admin: 05/22/17 20:07 Dose: 1 cap Finasteride (Proscar) 5 mg PO DAILY [facility] Last Admin: 05/25/17 10:29 Dose: 5 mg Folic Acid (Folic Acid) 1 mg PO DAILY [facility] Last Admin: 05/25/17 10:26 Dose: 1 mg Gabapentin (Neurontin) 100 mg PO TID [facility] PRN Reason: Protocol Last Admin: 05/25/17 18:13 Dose: 100 mg Iron Sucrose 200 mg/ Sodium (Chloride) 110 mls @ 110 mls/hr IVPB DAILY [facility] Stop: 05/26/17 10:59 Last Admin: 05/25/17 10:31 Dose: 110 mls/hr Lidocaine (Lidoderm) 1 ea TD DAILY [facility] Last Admin: 05/25/17 10:30 Dose: 1 ea Lorazepam (Ativan) 0.5 mg PO HS PRN; Protocol PRN Reason: Anxiety Last Admin: 05/23/17 21:50 Dose: 0.5 mg Pantoprazole Sodium (Protonix Ec Tab) 40 mg PO ACBD [facility] Last Admin: 05/25/17 18:13 Dose: 40 mg Polyethylene Glycol (Miralax) 17 gm PO TID [facility] Last Admin: 05/25/17 18:11 Dose: 17 gm Pregabalin (Lyrica) 100 mg PO TID [facility] Last Admin: 05/25/17 18:11 Dose: 100 mg Tamsulosin HCl (Flomax) 0.4 mg PO DAILY [facility] Last Admin: 05/25/17 10:30 Dose: 0.4 mg Tramadol HCl (Ultram) 50 mg PO BID [facility] Last Admin: 05/25/17 18:12 Dose: 50 mg Results - Vital Signs Recent Vital Signs: Last Vital Signs Temp 98.6 F 05/25/17 17:20 Pulse 86 05/25/17 18:11 Resp 18 05/25/17 17:20 BP 111/77 05/25/17 18:11 Pulse Ox 95 05/25/17 06:00 - Labs Result Diagrams: 05/25/17 06:00 05/25/17 06:00 Labs: Laboratory Results - last 24 hr 05/23/17 05/25/17 05/25/17 17:10 06:00 06:00 WBC 6.5 RBC 4.37 Hgb 11.6 L Hct 34.8 L MCV 79.6 L MCH 26.5 MCHC 33.3 RDW 14.2 Plt Count 239 MPV 10.1 Gran % 67.8 Lymph % (Auto) 20.6 L Brantley % (Auto) 9.6 H Eos % (Auto) 1.5 Baso % (Auto) 0.5 Gran # 4.40 Lymph # 1.3 Brantley # 0.6 Eos # 0.1 Baso # 0.03 Sodium 133 Potassium 4.6 Chloride 92 L Carbon Dioxide 32 Anion Gap 14 BUN 48 H Creatinine 1.0 Est GFR ( Amer) > 60 Est GFR (Non-Af Amer) > 60 Random Glucose 124 H Hemoglobin A1c Calcium 8.5 Phosphorus 5.6 H Magnesium 3.0 H Erythropoietin 35.0 H Total Bilirubin 0.7 Direct Bilirubin 0.3 AST 21 ALT 22 Alkaline Phosphatase 61 Total Creatine Kinase Troponin I C-Reactive Prot, Quant 6.2 H Total Protein 6.1 Albumin 3.3 Globulin 2.7 Albumin/Globulin Ratio 1.2 KARYN Screen Negative KARYN Titer TEST NOT PERFORMED KARYN Titer 2 TEST NOT PERFORMED KARYN Pattern TEST NOT PERFORMED KARYN Pattern 2 TEST NOT PERFORMED 05/25/17 05/25/17 11:43 11:55 WBC RBC Hgb Hct MCV MCH MCHC RDW Plt Count MPV Gran % Lymph % (Auto) Brantley % (Auto) Eos % (Auto) Baso % (Auto) Gran # Lymph # Brantley # Eos # Baso # Sodium Potassium Chloride Carbon Dioxide Anion Gap BUN Creatinine Est GFR ( Amer) Est GFR (Non-Af Amer) Random Glucose Hemoglobin A1c 5.3 Calcium Phosphorus Magnesium Erythropoietin Total Bilirubin Direct Bilirubin AST ALT Alkaline Phosphatase Total Creatine Kinase 31 L Troponin I < 0.01 C-Reactive Prot, Quant Total Protein Albumin Globulin Albumin/Globulin Ratio KARYN Screen KARYN Titer KARYN Titer 2 KARYN Pattern KARYN Pattern 2 Attending/Attestation - Attestation I have personally seen and examined this patient.: Yes I have fully participated in the care of the patient.: Yes I have reviewed all pertinent clinical information: Yes Notes (Text): 05/25/17 19:06 late entery due to [employer] technical difficulties- This is a 81 yo male with PMHx significant for prostate cancer s/p XRT, chronic idiopathic constipation, diabetes mellitus, spinal stenosis who presented to the hospital with left leg pain found to have new DVT. has constipation and will start stool softeners/ laxatives for the same. WILLIAN and weight loss concerning with no recent luminal exam. Will await imaging results and plan endoscopic exam based upon findings. Liquid diet
[2017-05-24] MEDS ORDERED: Magnesium Citrate Oral SOL (300 ml) PO ONE (12:09)
[2017-05-24] MEDS ORDERED: Iohexol 350 MG/100 ML VIAL ONE (12:34)
--- NOTE | 2017-05-24 13:33 | CARD ---
APPROVED REPORT EKG Measurement Heart [id number] <Conclusion> Sinus tachycardia Left anterior fascicular block Possible Anterolateral infarct, age undetermined Abnormal ECG
--- NOTE | 2017-05-24 16:20 | CT ---
PROCEDURE: CT Chest, Abdomen and Pelvis with intravenous contrast HISTORY: DVT/EVAL FOR POSSIBLE MALIGNANCY??? COMPARISON: None. TECHNIQUE: IV dose administered: Omnipaque 350, 100 cc. Radiation dose: Total exam DLP = 800 mGy-cm. This CT exam was performed using one or more of the following dose reduction techniques: Automated exposure control, adjustment of the mA and/or kV according to patient size, and/or use of iterative reconstruction technique. FINDINGS: CT CHEST WITH CONTRAST: LUNGS: Bilateral dependent atelectasis/compressive atelectasis is identified affecting primarily the bilateral lower lobes and minimally of the bilateral upper lobes as well. Underlying pneumonia is not excluded. No pneumothorax or definitive mass. The central airways appear clear grossly. MEDIASTINUM: Thoracic inlet appears unremarkable. . The ascending thoracic aorta measures 3.9 cm which is upper limits normal caliber with the pulmonary arterial trunk normal in caliber. No aortic dissection. Normal size heart. LYMPH NODES: Unremarkable. PLEURA: No pericardial effusion. Minimal right and mild left pleural effusions are identified. A mildly large hiatal hernia is identified. . BONES: No suspicious lytic or blastic change identified in the chest abdomen or pelvis however gross multilevel thoracic spondylosis is appreciated and moderate to severe compression fracture of T12 is identified as well as mild compression fractures of L2 and L3 which for anteriorly wedged as well. All fractures appear at indeterminate in age. None are fragmented. OTHER FINDINGS: None. CT ABDOMEN AND PELVIS: LIVER: 1.5 cm cyst identified in the right lobe liver medially approaching the dome, with a few additional tiny lucencies under 1 cm size too small to characterize in the right lobe. GALLBLADDER AND BILE DUCTS: Prior cholecystectomy. No prominent biliary tree dilatation. PANCREAS: Unremarkable. No gross lesion or ductal dilatation. SPLEEN: Unremarkable. ADRENALS: Unremarkable. No mass. KIDNEYS AND URETERS: Unremarkable. No hydronephrosis. No solid mass. VASCULATURE: Unremarkable. No aortic aneurysm. BOWEL: Unremarkable. No obstruction. No gross mural thickening. APPENDIX: Normal appendix. PERITONEUM: Unremarkable. No free fluid. No free air. LYMPH NODES: Unremarkable. No enlarged lymph nodes. BLADDER: Unremarkable. REPRODUCTIVE: Mildly enlarged prostate gland noted. BONES: See bone section chest portion of report. OTHER FINDINGS: None. IMPRESSION: 1. Limited bilateral pleural effusions are identified exerting mild compression atelectasis at the bilateral lower lobes with underlying pneumonia not excluded. No definitive pulmonary mass identified and there is no significant lymphadenopathy in chest. 2. No solid visceral mass is appreciable although a small cyst in the right lobe liver with 2 additional tiny lucencies too small to characterize in the right lobe. No significant abdominal lymphadenopathy including the perineum, mesenteric and pelvic sidewalls. Prostate gland appears enlarged but nonfocal. 3. Prior cholecystectomy. 4. Large hiatal hernia.
[2017-05-25] MEDS: Albuterol-Ipratrop 3 mg / 0.5 (3 ml) UD IH SCH ×5 (00:44→19:34)
[2017-05-25] MEDS: Pantoprazole 40 mg EC Tab PO SCH ×2 (05:56→18:13)
[2017-05-25] MEDS: Enoxaparin 80 mg Syringe SC SCH (06:03)
[2017-05-25 06:28] LABS: BASO # 0.03 K/mm3 (0.0-2.0); BASO % 0.5 % (0.0-3.0); EOS # 0.1 (0.0-0.7); EOS % 1.5 % (1.5-5.0); GRAN % 67.8 % (50.0-68.0); HEMOGLOBIN 11.6 gm/dL (14.0-18.0); LYMPH # 1.3 (1.2-3.4); LYMPH % 20.6 % (22.0-35.0); MEAN CELL VOLUME 79.6 fL (80.0-105.0); MEAN CORPUSCULAR HEMOGLOBIN 26.5 pg (25.0-35.0); MEAN CORPUSCULAR HGB CONC 33.3 g/dl (31.0-37.0); MEAN PLATELET VOLUME 10.1 fl (7.0-11.0); MONO # 0.6 (0.1-0.6); MONO % 9.6 % (1.0-6.0); PLATELET COUNT 239 10^3/uL (120.0-450.0); RBC 4.37 10^6/uL (3.5-6.1); RED CELL DISTRIBUTION WIDTH 14.2 % (11.5-14.5); WHITE BLOOD COUNT 6.5 10^3/ul (4.5-11.0)
[2017-05-25 06:40] LABS: ALB/GLOB RATIO 1.2 (1.1-1.8); ALBUMIN 3.3 g/dL (3.0-4.8); ALT/SGPT 22 U/L (7-56); AST/SGOT 21 U/L (15-59); BILIRUBIN,DIRECT 0.3 mg/dL (0.0-0.4); BLOOD UREA NITROGEN 48 mg/dL (7-21); CALCIUM 8.5 mg/dL (8.4-10.5); GFR AFRICAN-AMERICAN > 60; GFR NON-AFRICAN AMERICAN > 60
[2017-05-25] MEDS ORDERED: Bisacodyl 5mg EC Tab PO ONE ×2 (08:00→16:00)
--- NOTE | 2017-05-25 10:11 | CARD ---
APPROVED REPORT EKG Measurement Heart [id number] [id number] <Conclusion> Normal sinus rhythm Left anterior fascicular block PRWP V 1 - 6 Possible Anterolateral infarct, age undetermined Prolonged QT No change
--- NOTE | 2017-05-25 10:23 | CP.PCM.PN ---
<Sindhu Burnham - Last Filed: 05/25/17 10:20> Subjective - Date & Time of Evaluation Date of Evaluation: 05/25/17 Time of Evaluation: 10:20 - Subjective Subjective: Gastroenterology Fellow/PGY5 Progress Note Patient notes abdominal distension and no bowel movement on initial morning rounds. On re-evaluation, noted to have a large bowel movement and improved distension. Nausea improved and regular diet tolerated. Notes ongoing left leg pain and difficult to move or walk. A 12-point review of systems negative except for as above. Objective - Vital Signs/Intake and Output Vital Signs (last 24 hours): Temp Pulse Resp BP Pulse Ox 98.3 F 75 18 96/60 L 95 05/25/17 06:00 05/25/17 06:00 05/25/17 06:00 05/25/17 06:00 05/25/17 06:00 Intake and Output: 05/25/17 05/25/17 06:59 18:59 Intake Total 360 Output Total 300 Balance 60 - Medications Medications: Current Medications Albuterol/Ipratropium (Duoneb 3 Mg/0.5 Mg (3 Ml) Ud) 3 ml IH [id number] [facility] Last Admin: 05/25/17 07:47 Dose: 3 ml Atenolol (Tenormin) 12.5 mg PO BID [facility] Last Admin: 05/24/17 18:29 Dose: Not Given Atorvastatin Calcium (Lipitor) 40 mg PO DIN [facility] Last Admin: 05/24/17 18:27 Dose: 40 mg Cholecalciferol (Vitamin D) 2,000 iu PO DAILY [facility] Last Admin: 05/24/17 10:12 Dose: 2,000 iu Docusate Sodium (Colace) 100 mg PO TID [facility] Enoxaparin Sodium (Lovenox) 70 mg SC Q12H [facility] PRN Reason: Protocol Last Admin: 05/25/17 06:03 Dose: 70 mg Ergocalciferol (Drisdol 50,000 Intl Units Cap) 1 cap PO Q7D [facility] Last Admin: 05/22/17 20:07 Dose: 1 cap Finasteride (Proscar) 5 mg PO DAILY [facility] Last Admin: 05/24/17 10:14 Dose: 5 mg Folic Acid (Folic Acid) 1 mg PO DAILY [facility] Last Admin: 05/24/17 10:22 Dose: 1 mg Furosemide (Lasix) 20 mg IVP Q12 [facility] Last Admin: 05/24/17 22:40 Dose: 20 mg Gabapentin (Neurontin) 100 mg PO TID [facility] PRN Reason: Protocol Last Admin: 05/24/17 18:28 Dose: 100 mg Iron Sucrose 200 mg/ Sodium (Chloride) 110 mls @ 110 mls/hr IVPB DAILY [facility] Stop: 05/26/17 10:59 Last Admin: 05/24/17 12:13 Dose: 110 mls/hr Lidocaine (Lidoderm) 1 ea TD DAILY [facility] Last Admin: 05/24/17 10:23 Dose: 1 ea Lorazepam (Ativan) 0.5 mg PO HS PRN; Protocol PRN Reason: Anxiety Last Admin: 05/23/17 21:50 Dose: 0.5 mg Pantoprazole Sodium (Protonix Ec Tab) 40 mg PO 0600 [facility] Last Admin: 05/25/17 05:56 Dose: 40 mg Polyethylene Glycol (Miralax) 17 gm PO TID [facility] Last Admin: 05/24/17 18:27 Dose: 17 gm Pregabalin (Lyrica) 100 mg PO TID [facility] Last Admin: 05/24/17 18:30 Dose: 100 mg Tamsulosin HCl (Flomax) 0.4 mg PO DAILY [facility] Last Admin: 05/24/17 10:13 Dose: 0.4 mg Tramadol HCl (Ultram) 50 mg PO BID [facility] Last Admin: 05/24/17 18:29 Dose: 50 mg - Labs Labs: 05/25/17 06:00 05/25/17 06:00 PT 10.7 Seconds (9.9-11.8) 05/23/17 17:10 INR 0.99 (0.93-1.08) 05/23/17 17:10 APTT 32.8 Seconds (23.7-30.8) H 05/23/17 17:10 - Constitutional Appears: Non-toxic, No Acute Distress - Head Exam Head Exam: ATRAUMATIC, NORMOCEPHALIC - Eye Exam Eye Exam: EOMI, PERRL Pupil Exam: PERRL. absent: Miosis, Mydriatic - ENT Exam ENT Exam: Mucous Membranes Moist, Normal Oropharynx - Neck Exam Neck Exam: Full ROM, Normal Inspection - Respiratory Exam Respiratory Exam: Clear to Ausculation Bilateral. absent: Rales, Rhonchi, Wheezes - Cardiovascular Exam Cardiovascular Exam: RRR, +S1, +S2. absent: Gallop, Rubs - GI/Abdominal Exam GI & Abdominal Exam: Distended, Soft, Hypoactive Bowel Sounds. absent: Firm, Guarding, Rigid, Tenderness, Organomegaly, Rebound - Extremities Exam Additional comments: LLE 1-2+ pitting edema, RLE no edema - Neurological Exam Neurological Exam: Alert, Awake - Psychiatric Exam Psychiatric exam: Normal Affect, Normal Mood - Skin Skin Exam: Dry, Intact, Normal Color, Warm Assessment and Plan - Assessment and Plan (Free Text) Assessment: 81 year old male with history of Diabetes, spinal stenosis, Prostate cancer s/p radiation therapy, and chronic idiopathic constipation on Linzess/Miralax/ Colace at home presenting with recent fall five days prior to presentation in setting of worsening left leg pain and swelling. Active treatment of left lower extremity DVT on full dose Lovenox and constipation. Prior colonoscopy four years ago endorsed to be normal. Plan: >constipation multifactorial -spinal stenosis (prior L2-5 laminectomy), Diabetes, Lyrica chronic use- side effect, prostate cancer s/p radiation >CT Chest/Abd/Pelvis- constipation- received Mg citrate 05/24- BM today >ordered Golytely and clear diet today >colonoscopy Thursday05/26/17 to r/o colonic malignancy with alarm features of weight loss, iron deficiency anemia, and DVT >NPO after midnight >hold Thursday morning full dose Lovenox >primary team- hypercoagulable workup pending >further recommendations after endoscopic evaluation <Hiren Keyes - Last Filed: 05/25/17 10:36> Objective - Vital Signs/Intake and Output Vital Signs (last 24 hours): Temp Pulse Resp BP Pulse Ox 98.3 F 75 18 96/60 L 95 05/25/17 06:00 05/25/17 06:00 05/25/17 06:00 05/25/17 06:00 05/25/17 06:00 Intake and Output: 05/25/17 05/25/17 06:59 18:59 Intake Total 360 Output Total 300 Balance 60 - Medications Medications: Current Medications Albuterol/Ipratropium (Duoneb 3 Mg/0.5 Mg (3 Ml) Ud) 3 ml IH [id number] [facility] Last Admin: 05/25/17 07:47 Dose: 3 ml Atenolol (Tenormin) 12.5 mg PO BID [facility] Last Admin: 05/24/17 18:29 Dose: Not Given Atorvastatin Calcium (Lipitor) 40 mg PO DIN [facility] Last Admin: 05/24/17 18:27 Dose: 40 mg Cholecalciferol (Vitamin D) 2,000 iu PO DAILY [facility] Last Admin: 05/24/17 10:12 Dose: 2,000 iu Docusate Sodium (Colace) 100 mg PO TID [facility] Enoxaparin Sodium (Lovenox) 70 mg SC Q12H [facility] PRN Reason: Protocol Last Admin: 05/25/17 06:03 Dose: 70 mg Ergocalciferol (Drisdol 50,000 Intl Units Cap) 1 cap PO Q7D [facility] Last Admin: 05/22/17 20:07 Dose: 1 cap Finasteride (Proscar) 5 mg PO DAILY [facility] Last Admin: 05/24/17 10:14 Dose: 5 mg Folic Acid (Folic Acid) 1 mg PO DAILY [facility] Last Admin: 05/24/17 10:22 Dose: 1 mg Furosemide (Lasix) 20 mg IVP Q12 [facility] Last Admin: 05/24/17 22:40 Dose: 20 mg Gabapentin (Neurontin) 100 mg PO TID [facility] PRN Reason: Protocol Last Admin: 05/24/17 18:28 Dose: 100 mg Iron Sucrose 200 mg/ Sodium (Chloride) 110 mls @ 110 mls/hr IVPB DAILY [facility] Stop: 05/26/17 10:59 Last Admin: 05/24/17 12:13 Dose: 110 mls/hr Lidocaine (Lidoderm) 1 ea TD DAILY [facility] Last Admin: 05/24/17 10:23 Dose: 1 ea Lorazepam (Ativan) 0.5 mg PO HS PRN; Protocol PRN Reason: Anxiety Last Admin: 05/23/17 21:50 Dose: 0.5 mg Pantoprazole Sodium (Protonix Ec Tab) 40 mg PO 0600 [facility] Last Admin: 05/25/17 05:56 Dose: 40 mg Polyethylene Glycol (Miralax) 17 gm PO TID [facility] Last Admin: 05/24/17 18:27 Dose: 17 gm Pregabalin (Lyrica) 100 mg PO TID [facility] Last Admin: 05/24/17 18:30 Dose: 100 mg Tamsulosin HCl (Flomax) 0.4 mg PO DAILY [facility] Last Admin: 05/24/17 10:13 Dose: 0.4 mg Tramadol HCl (Ultram) 50 mg PO BID [facility] Last Admin: 05/24/17 18:29 Dose: 50 mg - Labs Labs: 05/25/17 06:00 05/25/17 06:00 PT 10.7 Seconds (9.9-11.8) 05/23/17 17:10 INR 0.99 (0.93-1.08) 05/23/17 17:10 APTT 32.8 Seconds (23.7-30.8) H 05/23/17 17:10 Attending/Attestation - Attestation I have personally seen and examined this patient.: Yes I have fully participated in the care of the patient.: Yes I have reviewed all pertinent clinical information, including history, physical exam and plan: Yes Notes (Text): 05/25/17 10:32 I have seen and examined patient with GI fellow. He is seen resting in bed comfortably, had a large bowel movement this morning. His abdominal pain is improved and he denies nausea, vomiting, fever/chills. Tolerating PO diet without difficulty. DM Spinal stenosis CIC on linzess therapy as outpatient Recently diagnosed DVT - Clear liquid diet as tolerated - H/H stable, continue to monitor - Follow up hypercoaguable workup - CT imaging reviewed by me showing fecal retention in colon, however no presence of mass lesions - Given elderly patient with recent weight loss, anemia, and new DVT, would suggest colonoscopy evaluation to rule out underlying malignancy. Golytely bowel preparation today, NPO after midnight. Will need to hold AM dose of lovenox.
[2017-05-25] MEDS: Lidocaine 5% Patch TD SCH (10:30)
[2017-05-25] MEDS: POLYETHYLENE GLYCOL 3350 17 GM/Dose PACKET PO SCH ×3 (10:31→18:11)
[2017-05-25] MEDS ORDERED: Peg-Electrolyte Oral Soln 4L (Golytely) PO ONE (10:33)
[2017-05-25 12:26] LABS: TROPONIN I < 0.01 ng/mL
--- NOTE | 2017-05-25 14:25 | CARD ---
APPROVED REPORT EKG Measurement Heart [id number] <Conclusion> Atrial fibrillation with rapid ventricular response Left anterior fascicular block PRWP V 1 - 6 NSSTW changes
--- NOTE | 2017-05-25 16:58 | PN ---
DATE: 05/25/2017 The patient is seen in room 262, bed 1. The patient is seen lying in the bed. PHYSICAL EXAMINATION VITAL SIGNS: T-max is 98.6. Heart rate 75, 86, 98. Blood pressure is 116/57, 196/60, 106/57. Respirations 18. O2 sat 95%. INTAKE AND OUTPUT: Not documented. HEAD: Normocephalic and atraumatic. HEENT: Shows pinkish pale conjunctivae, anicteric sclerae. No oropharyngeal lesion. No neck rigidity. CHEST: Kyphosis. LUNGS: Shows no rales, crackles, or wheezing. CARDIOVASCULAR: Shows S1 and S2, regular rhythm. Telemetry shows sinus rhythm in the last 24 hours. ABDOMEN: Positive bowel sounds. GENITALIA: Male. RECTAL: Deferred. EXTREMITIES: Shows complete resolution of the pitting edema. MUSCULOSKELETAL: Shows a body mass index of 26. Cranial nerve II to XII limited. Gait examination is not tested. DIAGNOSTICS: On 05/25, WBC 6.5, hemoglobin and hematocrit 11.6 and 34.8, platelets 239. ESR 40, platelet count is normal. Sodium 133, potassium 4.6, chloride 92, CO2 of 32, anion gap of 14, BUN 48, creatinine 1.0, GFR greater than 60, glucose 124. Phosphorus 5.3, magnesium 3.0, iron 32, saturations 11, vitamin D 18.2. LFTs are normal. The patient's CAT scan of the abdomen and pelvis was reviewed. EKG from today reviewed sinus rhythm, left anterior hemiblock, poor R-wave progression. IMPRESSION AND PLAN: 1. Acute probably unprovoked left lower extremity deep venous thrombosis of the left common femoral vein and left femoral vein, occlusive hypoechoic thrombus, probably unprovoked. 2. Transient hypotension, probably secondary to diuretics. 3. Bilateral lower extremity venous stasis (resolved). 4. Normocytic anemia. 5. Granulocytosis. 6. Elevated erythrocyte sedimentation rate of 40. 7. Prerenal kidney injury. 8. Hyperglycemia. 9. Hyperphosphatemia. 10. Iron deficiency. 11. Hypervitaminosis D. 12. Hypercholesterolemia with elevated LDL. 13. Bibasilar atelectasis and bilateral upper lobe atelectasis. 14. A 3.9-cm ascending thoracic aorta. 15. Bilateral small and minimal pleural effusion. 16. [id number] T12 compression fracture with mild compression fracture of L2-L3 with anterior wedging with indeterminate age. 17. Right hepatic lobe 1.5-cm hepatic cyst. 18. Fecal stasis and constipation. 19. Cholecystectomy. 20. Prostatomegaly with history of prostate carcinoma. 21. Large hiatal hernia. 22. 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 23. History of prostate carcinoma, status post radiation therapy. 24. Fecal retention. 25. Chronic idiopathic constipation. 26. Iron deficiency. 27. History of anxiety. 28. Hypovitaminosis D. 29. Prostatic hypertrophy. 30. Dyslipidemia. 31. Neuropathy. 1. Left lower extremity, possibly unprovoked deep venous thrombosis. 2. 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 3. History of hypertension. 4. History of questionable type 2 diabetes mellitus. 5. History of chronic constipation. 6. History of cholecystectomy. 7. History of degenerative joint disease of the lumbar spine with laminectomy. 8. History of T12 compression fracture. 9. History of gait dysfunction. 10. History of prostate carcinoma with history of radiation treatment. 11. Past medical history is also significant for chronic constipation, history of hypovitaminosis D, history of prostatic hypertrophy, history of dyslipidemia, and history of neuropathy. 12. Mild normocytic anemia with granulocytosis. 13. 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 14. Left common femoral vein and left femoral vein occlusive hypoechoic thrombus, probably unprovoked. 15. Status post fall with gait dysfunction. 16. 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 17. 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 18. Prominent left ring cisterna magna. 19. Left ribcage and hip and pelvic contusion secondary to fall. 20. Bibasilar atelectasis. 21. Cardiomegaly. 22. Cholecystectomy. 23. Degenerative joint disease of the thoracic and lumbar spine with dextroscoliosis of the thoracolumbar spine. 24. Bilateral hip joint narrowing. 25. Lumbar spine degenerative spondylosis. 26. Degenerative joint disease of the hips. 27. History of constipation with bowel diagnosis. 28. History of prostate carcinoma. 29. Degenerative joint disease with compression of the lumbar spine. 30. History of severe gait dysfunction and recurrent fall. 31. 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 32. Bilateral lower extremity weakness. 33. Severe lumbar spinal stenosis. 34. L2-L5 decompressive laminectomy. 35. T12 compression fracture. 36. Lumbar spine degenerative disk disease, disk bulging, and spinal stenosis. 37. Vitamin B12 deficiency. 38. History of prostatic hypertrophy. 39. Insomnia. 40. Anxiety disorder. 41. Atelectasis. 42. Multilevel lumbar spine degenerative disk disease and T12 compression fracture in 2015. 43. History of left lower extremity weakness with left footdrop. 44. L2-L5 decompression lumbar laminectomy. 45. Vitamin B12 and folate deficiency. 46. Aortic valve sclerosis. PLAN: At this time, the patient is seen by gastroenterology. The patient is scheduled for colonoscopy in the a.m. The patient' Lovenox dose tonight will be held. The patient is seen by Dr. Patrick Luong. Case discussed with Dr. Luong, recommends long-term anticoagulation. The patient is scheduled for colonoscopy in the a.m. The patient's hypercoagulable workup is pending. CURRENT MEDICATIONS: 1. Ativan 0.5 mg p.o. at bedtime p.r.n. 2. Colace 100 mg 3 times a day. 3. Drisdol 50,000 weekly. 4. DuoNeb nebulizer every 6 hours. 5. Flomax 0.4 mg daily. 6. Folic acid 1 mg daily. 7. The patient is ordered GoLYTELY. 8. The patient is on Venofer 200 mg daily for total 3 doses. 9. Lidoderm 5% patch to the affected area. 10. Lipitor 40 mg daily. 11. Lyrica 100 mg 3 times a day. 12. MiraLax 17 g three 3 a day. 13. Neurontin 100 mg 3 times a day. 14. Proscar 5 mg daily. 15. Protonix 40 mg, increased to twice a day because of large hiatal hernia. 16. The patient is on Tenormin 12.5 twice a day. 17. Ultram 50 mg twice a day. 18. Vitamin D3 2000 units daily. 19. Incentive spirometer q. 2 hours. The patient is on liquid diet today and n.p.o. diet from the morning. The patient has been ordered out of bed physical therapy, occupational therapy. At present, the patient's case has also been referred to discharge planning. Physical therapy, occupational therapy, ambulation therapy, and the patient's case is referred to case management for discharge planning. The patient has been updated about all above at length all questions and concerns answered, which he acknowledged understanding. DICTATED AND ELECTRONICALLY SIGNED NOT READ. Kian Smith MD MTDDomingo
[2017-05-25] MEDS ORDERED: Mineral Oil Enema 135 ml RC ONE (22:22)
[2017-05-26] MEDS: Albuterol-Ipratrop 3 mg / 0.5 (3 ml) UD IH SCH ×4 (01:35→19:45)
[2017-05-26 06:25] LABS: BASO # 0.01 K/mm3 (0.0-2.0); BASO % 0.2 % (0.0-3.0); EOS # 0.2 (0.0-0.7); EOS % 2.9 % (1.5-5.0); GRAN # 4.12 (1.4-6.5); GRAN % 62.3 % (50.0-68.0); HEMOGLOBIN 9.6 gm/dL (14.0-18.0); LYMPH # 1.6 (1.2-3.4); LYMPH % 23.4 % (22.0-35.0); MEAN CELL VOLUME 79.1 fL (80.0-105.0); MEAN CORPUSCULAR HEMOGLOBIN 26.4 pg (25.0-35.0); MEAN CORPUSCULAR HGB CONC 33.3 g/dl (31.0-37.0); MONO # 0.7 (0.1-0.6); MONO % 11.2 % (1.0-6.0); PLATELET COUNT 227 10^3/uL (120.0-450.0); RBC 3.64 10^6/uL (3.5-6.1); RED CELL DISTRIBUTION WIDTH 14.3 % (11.5-14.5); WHITE BLOOD COUNT 6.6 10^3/ul (4.5-11.0)
[2017-05-26 06:40] LABS: ALB/GLOB RATIO 1.2 (1.1-1.8); ALBUMIN 2.9 g/dL (3.0-4.8); ALT/SGPT 24 U/L (7-56); AST/SGOT 22 U/L (15-59); BILIRUBIN,DIRECT 0.3 mg/dL (0.0-0.4); BLOOD UREA NITROGEN 49 mg/dL (7-21); CALCIUM 7.7 mg/dL (8.4-10.5); GFR AFRICAN-AMERICAN > 60; GFR NON-AFRICAN AMERICAN > 60; MAGNESIUM 2.7 mg/dL (1.7-2.2)
[2017-05-26 06:55] LABS: TROPONIN I < 0.01 ng/mL
[2017-05-26] MEDS ORDERED: Potassium Chloride 20 mEq/15 ml LIQ UD PO STA ×2 (06:59→12:54)
[2017-05-26] MEDS: Pantoprazole 40 mg EC Tab PO SCH ×2 (09:00→18:33)
--- NOTE | 2017-05-26 09:05 | CP.PCM.PN ---
Subjective - Date & Time of Evaluation Date of Evaluation: 05/26/17 Time of Evaluation: 09:02 - Subjective Subjective: Medicine Progress Note for Dr. Smith Patient seen and examined at bedside. There were no acute overnight events. Today he reports feeling better, but continue to have L leg pain that is worse with movement. He denies CP, SOB, n/v, numbness/tingling, fever or chills. Patient is having colonoscopy this am. He denies having dark or bloody stool, but has been having loose stool secondary to the colonoscopy prep. Objective - Vital Signs/Intake and Output Vital Signs (last 24 hours): Temp Pulse Resp BP Pulse Ox 97.8 F 81 20 112/62 93 L 05/26/17 06:00 05/26/17 06:00 05/26/17 06:00 05/26/17 06:00 05/26/17 06:00 - Medications Medications: Current Medications Albuterol/Ipratropium (Duoneb 3 Mg/0.5 Mg (3 Ml) Ud) 3 ml IH [id number] [facility] Last Admin: 05/26/17 07:55 Dose: 3 ml Atenolol (Tenormin) 12.5 mg PO BID [facility] Last Admin: 05/25/17 18:11 Dose: 12.5 mg Atorvastatin Calcium (Lipitor) 40 mg PO DIN [facility] Last Admin: 05/25/17 18:11 Dose: 40 mg Cholecalciferol (Vitamin D) 2,000 iu PO DAILY [facility] Last Admin: 05/25/17 10:29 Dose: 2,000 iu Docusate Sodium (Colace) 100 mg PO TID [facility] Last Admin: 05/25/17 18:12 Dose: 100 mg Ergocalciferol (Drisdol 50,000 Intl Units Cap) 1 cap PO Q7D [facility] Last Admin: 05/22/17 20:07 Dose: 1 cap Finasteride (Proscar) 5 mg PO DAILY [facility] Last Admin: 05/25/17 10:29 Dose: 5 mg Folic Acid (Folic Acid) 1 mg PO DAILY [facility] Last Admin: 05/25/17 10:26 Dose: 1 mg Gabapentin (Neurontin) 100 mg PO TID [facility] PRN Reason: Protocol Last Admin: 05/25/17 18:13 Dose: 100 mg Iron Sucrose 200 mg/ Sodium (Chloride) 110 mls @ 110 mls/hr IVPB DAILY [facility] Stop: 05/26/17 10:59 Last Admin: 05/25/17 10:31 Dose: 110 mls/hr Potassium Chloride (Potassium Chloride 20 Meq/100 Ml) 20 meq in 100 mls @ 50 mls/hr IVPB Q2H [facility] Stop: 05/26/17 11:14 Lidocaine (Lidoderm) 1 ea TD DAILY [facility] Last Admin: 05/25/17 10:30 Dose: 1 ea Lorazepam (Ativan) 0.5 mg PO HS PRN; Protocol PRN Reason: Anxiety Last Admin: 05/23/17 21:50 Dose: 0.5 mg Pantoprazole Sodium (Protonix Ec Tab) 40 mg PO ACBD [facility] Last Admin: 05/25/17 18:13 Dose: 40 mg Polyethylene Glycol (Miralax) 17 gm PO TID [facility] Last Admin: 05/25/17 18:11 Dose: 17 gm Pregabalin (Lyrica) 100 mg PO TID [facility] Last Admin: 05/25/17 18:11 Dose: 100 mg Tamsulosin HCl (Flomax) 0.4 mg PO DAILY [facility] Last Admin: 05/25/17 10:30 Dose: 0.4 mg Tramadol HCl (Ultram) 50 mg PO BID [facility] Last Admin: 05/25/17 18:12 Dose: 50 mg - Labs Labs: 05/26/17 05:20 05/26/17 05:20 PT 10.7 Seconds (9.9-11.8) 05/23/17 17:10 INR 0.99 (0.93-1.08) 05/23/17 17:10 APTT 32.8 Seconds (23.7-30.8) H 05/23/17 17:10 - Constitutional Appears: No Acute Distress - Head Exam Head Exam: ATRAUMATIC, NORMAL INSPECTION, NORMOCEPHALIC - Eye Exam Eye Exam: Normal appearance, PERRL Pupil Exam: NORMAL ACCOMODATION, PERRL - ENT Exam ENT Exam: Mucous Membranes Moist - Neck Exam Neck Exam: Full ROM - Respiratory Exam Respiratory Exam: Clear to Ausculation Bilateral, NORMAL BREATHING PATTERN ( ). absent: Rales, Rhonchi, Wheezes - Cardiovascular Exam Cardiovascular Exam: REGULAR RHYTHM, +S1, +S2. absent: Gallop, Rubs, Murmur - GI/Abdominal Exam GI & Abdominal Exam: Soft, Tenderness (RUQ ), Hyperactive Bowel Sounds. absent : Rigid, Mass, Rebound - Extremities Exam Extremities Exam: Calf Tenderness (on L ), Normal Inspection - Neurological Exam Neurological Exam: Alert, Awake, CN II-XII Intact, Oriented x3 - Psychiatric Exam Psychiatric exam: Normal Affect, Normal Mood - Skin Skin Exam: Dry, Intact, Normal Color, Warm Assessment and Plan - Assessment and Plan (Free Text) Assessment: This is a 81Y M with PMH DM, HTN, Vit D def, spinal stenosis, prostate cancer s/ p radiation, chronic idiopathic constipation admitted for L leg DVT who is also found to have anemia. Plan: 1. L leg DVT - Hypercoag work up pending - KARYN neg - Colonoscopy today to r/o malignancy - Pt was on therapeutic Lovenox- held this am for colonoscopy - IR- Dr. Luong consulted- Will discuss possible IVC filter - GI consulted- recs appreciated 2. Anemia - iron deficiency versus Heparin induced - Hgb 9.2, MCV: 76 - IV iron - Will check hep-induced ab and serotonin assay - Continue Folic acid 3. Hypokalemia - secondary to diarrhea from colonscopy prep - K given - Will continue to monitor 4. BPH with Hx of Prostate cancer s/p radiation - Continue flomax and Proscar 5. Paroxysmal A.fib with RVR - Noted last night - Pt now in NSR - Continue Atenolol - Echo showed EF of 55%, borderline LVH, mild aortic and tricuspid regurg - Cardiology- Dr. Salmon consulted 6. HTN - Continue Atenolol 7. Hx of dyslipidemia - Continue Lipitor 8. Hx of chronic idiopathic diarrhea - Continue colace and Miralax - GI consulted- recs appreciated 9. Hx of Spinal stenosis - Continue Lyrica, Tramadol, Lidoderm, Gabapentin 10. Hx of anxiety - Xanax HS prn 11. Vit D deficiency - Continue Vit D and Drisdol GI ppx: Protonix DVT ppx: LVX on hold due to colonoscopy. Dispo: PT recommended [facility]. Pt accepted to [facility]. Will be transferred once medically stable. Case seen, reviewed and discussed with Dr. Sarah Dotson PGY2
--- NOTE | 2017-05-26 09:15 | CARD ---
APPROVED REPORT EXAM: Two-dimensional and M-mode echocardiogram with Doppler and color Doppler. Other Information Quality : AverageRhythm : INDICATION NEW A-FIB 2D DIMENSIONS IVSd1.2 (0.7-1.1cm)LVDd3.6 (3.9-5.9cm) PWd1.2 (0.7-1.1cm)LVDs2.6 (2.5-4.0cm) FS (%) 28.3 %LVEF (%)55.0 (>50%) M-Mode DIMENSIONS Aortic Root3.50 (2.2-3.7cm)Aortic Cusp Exc.1.70 (1.5-2.0cm) Aortic Valve AoV Peak Oyqhnlqd225.0cm/José Manuel P 1/2 [id number] Mitral Valve MV E Wqtspbzl50.2cm/sMV A Lgvjzmmd545.0cm/sE/A ratio0.6 TDI Lateral E' Peak V9.16cm/sMedial E' Peak V6.63cm/sE/Lateral E'6.9 E/Medial E'9.5 Pulmonary Valve PV Peak Axpopmxv05.4cm/sPV Peak Grad.3mmHg Tricuspid Valve TR Peak Nuehxlrw261yc/sRAP [id number] Peak Gr.34mmHg [id number] LEFT VENTRICLE The left ventricle is normal size. There is borderline concentric left ventricular hypertrophy. The left ventricular function is normal. The left ventricular ejection fraction is within the normal range. There is normal LV segmental wall motion. RIGHT VENTRICLE The right ventricle is normal size. ATRIA The left atrium size is normal. The right atrium size is normal. The interatrial septum is intact with no evidence for an atrial septal defect. AORTIC VALVE The aortic valve is normal in structure. There is mild aortic regurgitation. MITRAL VALVE The mitral valve is normal in structure. Mitral regurgitation is trace. TRICUSPID VALVE The tricuspid valve is normal in structure. There is trace to mild tricuspid regurgitation. PULMONIC VALVE The pulmonic valve is not well visualized. PERICARDIAL EFFUSION There is no pericardial effusion. <Conclusion> The left ventricle is normal size. There is borderline concentric left ventricular hypertrophy. The left ventricular function is normal. There is mild aortic regurgitation. Mitral regurgitation is trace. There is trace to mild tricuspid regurgitation.
[2017-05-26] MEDS: POLYETHYLENE GLYCOL 3350 17 GM/Dose PACKET PO SCH ×3 (10:00→18:30)
--- NOTE | 2017-05-26 10:14 | CARD ---
APPROVED REPORT EKG Measurement Heart [id number] <Conclusion> Normal sinus rhythm Left anterior fascicular block PRWP V 1 - 6 NSSTW changes No change except the rate is slower
[2017-05-26] MEDS ORDERED: Propofol 10 mg/ml Inj (20 ML) ONE (10:40)
[2017-05-26] MEDS ORDERED: Phenylephrine 10 mg/ml Inj ONE (10:50)
[2017-05-26] MEDS ORDERED: ePHEDrine 50 mg/ml Inj ONE (11:05)
--- NOTE | 2017-05-26 12:18 | PN ---
DATE: 05/26/2017 SUBJECTIVE: The patient was seen in holding area while the patient was getting prepped for colonoscopy. Overnight notes were reviewed from last 24 hours. The patient had a very brief period of atrial fibrillation with rapid ventricular response which converted back to normal sinus rhythm. The patient was seen lying in the bed. The patient had a few bowel movements. PHYSICAL EXAMINATION VITAL SIGNS: T max 99.2. The patient's telemetry monitoring was reviewed. The patient had a brief period of atrial fibrillation yesterday afternoon, the patient converted around 11:00 a.m. which converted to sinus rhythm and the patient has been staying in normal sinus rhythm after that, heart rate is in 80s and 70s. Blood pressure 112/62, 116/56, 116/57, 110/77; respiration 20; O2 sat averaging around mid-to-high 90s, intake and output not documented. HEENT: Head examination, normocephalic and atraumatic. HEENT examination shows pinkish pale conjunctivae, anicteric sclerae. No oropharyngeal lesion. NECK: No neck rigidity. CHEST: Kyphosis. LUNGS: Shows no rales, crackles or wheezing. CARDIOVASCULAR: S1 and S2, regular rhythm, questionable soft systolic murmur in left sternal border, right second intercostal space. ABDOMEN: Slightly protuberant. Positive bowel sounds. Slightly distended abdomen. GENITALIA: Male. RECTAL: Deferred. EXTREMITIES: Trace swelling of the left lower extremity. No pitting edema. MUSCULOSKELETAL: Shows body mass index of 25.5. Cranial nerve II through XII limited. Gait examination is not tested. NEUROLOGIC: The patient is alert, awake, oriented x3. DIAGNOSTICS: From 05/26, WBC 6.6, hemoglobin and hematocrit has dropped from admission hemoglobin of 12.5 and hematocrit of 36.8 to today's hemoglobin and hematocrit of 9.6 and 28.8, platelet 227. Sodium has gone down to 131, potassium 3.5, chloride 89, CO2 of 32, anion gap 14, BUN 49, creatinine 0.9, GFR greater than 60, glucose 110, hemoglobin A1c 5.3, calcium 7.7, phosphorous 5.0, magnesium 2.7, LFTs are normal, troponin is negative, CPK 2 sets are negative. KARYN was negative. The patient's blood type is A+. Echocardiogram was noted which was done yesterday shows ejection fraction of 55%, right ventricular systolic pressure of 44 mmHg, concentric left ventricular hypertrophy, mild aortic regurgitation, trace mitral regurgitation, mild tricuspid regurgitation, mild pulmonary arterial hypertension with right ventricular systolic pressure of 44 mmHg. EKG from today shows sinus rhythm, left anterior hemiblock, poor R-wave progression V1 to V3, nonspecific ST-T changes. The patient was scheduled for colonoscopy today. The patient's Lovenox is held at this time. IMPRESSION AND PLAN: 1. Questionable provoked versus unprovoked left lower extremity deep venous thrombosis of the left common femoral vein and left femoral vein with hypoechoic acute occlusive thrombus. 2. Anemia with decreasing hemoglobin and hematocrit. 3. Paroxysmal atrial fibrillation (resolved). 4. Bibasilar atelectasis and bilateral upper lobe atelectasis. 5. A 3.9 cm ascending aortic dilatation. 6. Bilateral small pleural effusion. 7. Large hiatal hernia. 8. Multilevel thoracic spondylosis. 9. T12 severe compression fracture and mild compression fracture of L2-L3 with anterior wedging of indeterminate age. 10. Right hepatic lobe cyst. 11. Cholecystectomy. 12. Prostatomegaly. 13. Left ventricular ejection fraction of 55%. 14. Pulmonary arterial hypertension with right ventricular systolic pressure of 44 mmHg. 15. Left ventricular hypertrophy. 16. Mild aortic and trace mitral regurgitation and mild tricuspid regurgitation. 17. Gait dysfunction. 18. Recurrent falls. 19. Left anterior hemiblock. 20. Paroxysmal atrial fibrillation with left anterior hemiblock with rapid ventricular response (resolved). 21. Chronic idiopathic constipation. 22. Elevated erythrocyte sedimentation rate. 23. Hyponatremia. 24. Hypokalemia. 25. Prerenal kidney injury. 26. Hyperphosphatemia. 27. Mild hypoalbuminemia and protein malnutrition. 28. Hypovitaminosis D. 29. Mild hyperhomocysteinemia. 30. A+ blood type. 31. History of anxiety. 32. Constipation. 33. Prostate carcinoma and prostate hypertrophy. 34. History of iron deficiency. 35. History of dyslipidemia. 36. History of neuropathy. 1. Acute probably unprovoked left lower extremity deep venous thrombosis of the left common femoral vein and left femoral vein, occlusive hypoechoic thrombus, probably unprovoked. 2. Transient hypotension, probably secondary to diuretics. 3. Bilateral lower extremity venous stasis (resolved). 4. Normocytic anemia. 5. Granulocytosis. 6. Elevated erythrocyte sedimentation rate of 40. 7. Prerenal kidney injury. 8. Hyperglycemia. 9. Hyperphosphatemia. 10. Iron deficiency. 11. Hypervitaminosis D. 12. Hypercholesterolemia with elevated LDL. 13. Bibasilar atelectasis and bilateral upper lobe atelectasis. 14. A 3.9-cm ascending thoracic aorta. 15. Bilateral small and minimal pleural effusion. 16. Xttixdtn-oi-qnvqgj T12 compression fracture with mild compression fracture of L2-L3 with anterior wedging with indeterminate age. 17. Right hepatic lobe 1.5-cm hepatic cyst. 18. Fecal stasis and constipation. 19. Cholecystectomy. 20. Prostatomegaly with history of prostate carcinoma. 21. Large hiatal hernia. 22. 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 23. History of prostate carcinoma, status post radiation therapy. 24. Fecal retention. 25. Chronic idiopathic constipation. 26. Iron deficiency. 27. History of anxiety. 28. Hypovitaminosis D. 29. Prostatic hypertrophy. 30. Dyslipidemia. 31. Neuropathy. 1. Left lower extremity, possibly unprovoked deep venous thrombosis. 2. 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 3. History of hypertension. 4. History of questionable type 2 diabetes mellitus. 5. History of chronic constipation. 6. History of cholecystectomy. 7. History of degenerative joint disease of the lumbar spine with laminectomy. 8. History of T12 compression fracture. 9. History of gait dysfunction. 10. History of prostate carcinoma with history of radiation treatment. 11. Past medical history is also significant for chronic constipation, history of hypovitaminosis D, history of prostatic hypertrophy, history of dyslipidemia, and history of neuropathy. 12. Mild normocytic anemia with granulocytosis. 13. 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 14. Left common femoral vein and left femoral vein occlusive hypoechoic thrombus, probably unprovoked. 15. Status post fall with gait dysfunction. 16. 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 17. 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 18. Prominent left ring cisterna magna. 19. Left ribcage and hip and pelvic contusion secondary to fall. 20. Bibasilar atelectasis. 21. Cardiomegaly. 22. Cholecystectomy. 23. Degenerative joint disease of the thoracic and lumbar spine with dextroscoliosis of the thoracolumbar spine. 24. Bilateral hip joint narrowing. 25. Lumbar spine degenerative spondylosis. 26. Degenerative joint disease of the hips. 27. History of constipation with bowel diagnosis. 28. History of prostate carcinoma. 29. Degenerative joint disease with compression of the lumbar spine. 30. History of severe gait dysfunction and recurrent fall. 31. 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 32. Bilateral lower extremity weakness. 33. Severe lumbar spinal stenosis. 34. L2-L5 decompressive laminectomy. 35. T12 compression fracture. 36. Lumbar spine degenerative disk disease, disk bulging, and spinal stenosis. 37. Vitamin B12 deficiency. 38. History of prostatic hypertrophy. 39. Insomnia. 40. Anxiety disorder. 41. Atelectasis. 42. Multilevel lumbar spine degenerative disk disease and T12 compression fracture in 2014. 43. History of left lower extremity weakness with left footdrop. 44. L2-L5 decompression lumbar laminectomy. 45. Vitamin B12 and folate deficiency. 46. Aortic valve sclerosis. PLAN: At this time, the patient is awaiting for colonoscopy, the patient is awaiting for cardiology recommendation, the patient has been ordered serial labs. The patient's further hypercoagulable workup is pending, current consultation, gastroenterology, cardiology, interventional radiology. The patient has typed and crossmatch in anticipation; if the patient's hemoglobin and hematocrit drops, then the patient will be transfused. CURRENT MEDICATIONS: Ativan 0.5 mg at bedtime p.r.n., Colace 100 mg 3 times a day, Drisdol 50,000 weekly, DuoNeb nebulizer every 6 hours. The patient received Fleet enema last night, Flomax 0.4 mg daily, folic acid 1 mg daily. The patient is on iron 200 mg daily, Lidoderm 5% patch daily, Lipitor 40 mg daily, Lyrica 100 mg 3 times a day, MiraLAX 17 g 3 times a day, Neurontin 100 mg 3 times a day. The patient has been given potassium riders. Proscar 5 mg daily, Protonix 40 mg twice a day, Tenormin 12.5 twice a day, Ultram 50 mg twice a day, vitamin D 2000 units daily. The patient has been ordered to repeat EKG. The patient has been ordered out of bed to chair. The patient has been ordered physical therapy, occupational therapy. The patient has been ordered stool for occult blood. At present, the patient's further disposition will be dependent upon the patient's clinical condition, hemodynamic status and as per the patient's response to diagnostic therapeutic intervention. If the patient's hemoglobin and hematocrit continues to drop, the patient may need PRBC transfusion. We will request reevaluation with interventional radiology for possible consideration for filter placement and regarding further need for anticoagulation. Dictated and electronically signed, not read. Signing off, Kian Smith MD. Kian Smith MD MTDD
[2017-05-26] MEDS: Sodium Chloride 0.9% 1,000 ML IV SCH (13:16)
[2017-05-26] MEDS: Lidocaine 5% Patch TD SCH (15:00)
--- NOTE | 2017-05-26 17:55 | CON ---
CARDIOLOGY CONSULTATION DATE: 05/26/2017 HISTORY OF PRESENT ILLNESS: The patient is an 81-year-old male who was undergoing a GI workup when he went to transient atrial fibrillation which had no associated hemodynamic consequences. His atrial fibrillation resolved and is back to normal sinus rhythm. The patient's past medical history is notable for history of history of hypercholesterolemia as well as hypertension. He is on Tenormin 12.5 mg at home. No diabetes mellitus noted. SOCIAL HISTORY: No active smoking. REVIEW OF SYSTEMS: No angina. No shortness of breath. The pain in the lower extremities for his DVT is now improved. PHYSICAL EXAMINATION: VITAL SIGNS: Blood pressure is 101/53, heart rate is in the 70s, normal sinus rhythm. NECK: Negative JVD. LUNGS: Without rales. HEART: With S1, S2. EXTREMITIES: Without edema. LABORATORY DATA: EKG shows normal sinus rhythm with no acute changes. Laboratory reveals troponins that are negative x2. Hemoglobin is 9.6. Echocardiogram reveals normal LV function with LVH. IMPRESSION: 1. Self-limiting paroxysmal atrial fibrillation. The patient is back to normal sinus rhythm. 2. Hypertension. 3. Anemia. 4. Transient atrial fibrillation. PLAN: Given these findings, we will restart the patient on his low-dose beta blockers. The patient is now ambulating without symptoms. There is no need for further cardiac workup at this time. We will complete his GI workup. Patrick Salmon MD
[2017-05-26 21:57] LABS: CARDIOLIPIN AB (IGA) <11 APL (<=11); CARDIOLIPIN AB (IGG) <14 GPL (<=14)
[2017-05-27] MEDS: Albuterol-Ipratrop 3 mg / 0.5 (3 ml) UD IH SCH ×4 (01:55→19:40)
[2017-05-27] MEDS: Sodium Chloride 0.9% 1,000 ML IV SCH (04:50)
[2017-05-27 04:54] LABS: B2 GLYCOPROTEIN I AB(IGA) 18 SAU (<=20); B2 GLYCOPROTEIN I AB(IGG) <9 SGU (<=20); B2 GLYCOPROTEIN I AB(IGM) <9 SMU (<=20)
[2017-05-27 05:16] LABS: CARDIOLIPIN AB (IGM) <12 MPL (<=12); PHOSPHATIDYLSERINE AB IGA <20 U/mL (<20); PHOSPHATIDYLSERINE AB IGG <10 U/mL (<10); PHOSPHATIDYLSERINE AB IGM <25 U/mL (<25)
[2017-05-27 06:15] LABS: BASO # 0.03 K/mm3 (0.0-2.0); BASO % 0.6 % (0.0-3.0); EOS # 0.2 (0.0-0.7); EOS % 3.7 % (1.5-5.0); GRAN # 3.75 (1.4-6.5); GRAN % 69.4 % (50.0-68.0); HEMOGLOBIN 8.9 gm/dL (14.0-18.0); LYMPH # 0.9 (1.2-3.4); LYMPH % 16.7 % (22.0-35.0); MEAN CELL VOLUME 80.5 fL (80.0-105.0); MEAN CORPUSCULAR HEMOGLOBIN 26.3 pg (25.0-35.0); MEAN CORPUSCULAR HGB CONC 32.7 g/dl (31.0-37.0); MEAN PLATELET VOLUME 9.6 fl (7.0-11.0); MONO # 0.5 (0.1-0.6); MONO % 9.6 % (1.0-6.0); PLATELET COUNT 193 10^3/uL (120.0-450.0); RBC 3.38 10^6/uL (3.5-6.1); RED CELL DISTRIBUTION WIDTH 14.7 % (11.5-14.5); WHITE BLOOD COUNT 5.4 10^3/ul (4.5-11.0)
[2017-05-27 06:25] LABS: ALB/GLOB RATIO 1.1 (1.1-1.8); ALBUMIN 2.7 g/dL (3.0-4.8); ALT/SGPT 26 U/L (7-56); AST/SGOT 28 U/L (15-59); BILIRUBIN,DIRECT 0.3 mg/dL (0.0-0.4); BLOOD UREA NITROGEN 22 mg/dL (7-21); CALCIUM 7.7 mg/dL (8.4-10.5); GFR AFRICAN-AMERICAN > 60; GFR NON-AFRICAN AMERICAN > 60; MAGNESIUM 2.3 mg/dL (1.7-2.2)
[2017-05-27] MEDS ORDERED: Potassium Chloride 20 mEq ER Tab PO STA (06:32)
--- NOTE | 2017-05-27 07:20 | CP.PCM.PN ---
<Sindhu Burnham - Last Filed: 05/27/17 09:51> Subjective - Date & Time of Evaluation Date of Evaluation: 05/27/17 Time of Evaluation: 07:16 - Subjective Subjective: Gastroenterology Fellow/PGY5 Progress Note Patient denies abdominal pain. Tolerating regular diet. Poor bowel prep yesterday with colonoscopy. States he is shivering and doesn't feel good since yesterday evening. A 12-point review of systems negative except for as above. Objective - Vital Signs/Intake and Output Vital Signs (last 24 hours): Temp Pulse Resp BP Pulse Ox 98.2 F 87 20 100/54 L 97 05/27/17 06:46 05/27/17 06:00 05/27/17 06:00 05/27/17 06:00 05/27/17 06:00 Intake and Output: 05/27/17 05/27/17 06:59 18:59 Intake Total 1300 Output Total 1600 Balance -300 - Medications Medications: Current Medications Albuterol/Ipratropium (Duoneb 3 Mg/0.5 Mg (3 Ml) Ud) 3 ml IH [id number] [facility] Last Admin: 05/27/17 01:55 Dose: 3 ml Atenolol (Tenormin) 12.5 mg PO BID [facility] Last Admin: 05/26/17 18:31 Dose: 12.5 mg Atorvastatin Calcium (Lipitor) 40 mg PO DIN [facility] Last Admin: 05/26/17 18:31 Dose: 40 mg Cholecalciferol (Vitamin D) 2,000 iu PO DAILY [facility] Last Admin: 05/26/17 10:00 Dose: Not Given Docusate Sodium (Colace) 100 mg PO TID [facility] Last Admin: 05/26/17 18:31 Dose: 100 mg Ergocalciferol (Drisdol 50,000 Intl Units Cap) 1 cap PO Q7D [facility] Last Admin: 05/22/17 20:07 Dose: 1 cap Finasteride (Proscar) 5 mg PO DAILY [facility] Last Admin: 05/26/17 10:00 Dose: Not Given Folic Acid (Folic Acid) 1 mg PO DAILY [facility] Last Admin: 05/26/17 10:00 Dose: Not Given Furosemide (Lasix) 20 mg IVP Q6H [facility] Stop: 05/27/17 13:16 Gabapentin (Neurontin) 100 mg PO TID [facility] PRN Reason: Protocol Last Admin: 05/26/17 18:30 Dose: 100 mg Sodium Chloride (Sodium Chloride 0.9%) 1,000 mls @ 100 mls/hr IV .Q10H [facility] Last Admin: 05/27/17 04:50 Dose: Not Given Lidocaine (Lidoderm) 1 ea TD DAILY [facility] Last Admin: 05/26/17 15:00 Dose: 1 ea Lorazepam (Ativan) 0.5 mg PO HS PRN; Protocol PRN Reason: Anxiety Last Admin: 05/23/17 21:50 Dose: 0.5 mg Pantoprazole Sodium (Protonix Ec Tab) 40 mg PO ACBD [facility] Last Admin: 05/26/17 18:33 Dose: 40 mg Polyethylene Glycol (Miralax) 17 gm PO TID [facility] Last Admin: 05/26/17 18:30 Dose: 17 gm Pregabalin (Lyrica) 100 mg PO TID [facility] Last Admin: 05/26/17 18:30 Dose: 100 mg Tamsulosin HCl (Flomax) 0.4 mg PO DAILY [facility] Last Admin: 05/26/17 10:00 Dose: Not Given Tramadol HCl (Ultram) 50 mg PO BID [facility] Last Admin: 05/26/17 18:30 Dose: 50 mg - Labs Labs: 05/27/17 05:40 05/27/17 05:40 PT 10.7 Seconds (9.9-11.8) 05/23/17 17:10 INR 0.99 (0.93-1.08) 05/23/17 17:10 APTT 32.8 Seconds (23.7-30.8) H 05/23/17 17:10 - Constitutional Appears: Non-toxic, No Acute Distress - Head Exam Head Exam: ATRAUMATIC, NORMOCEPHALIC - Eye Exam Eye Exam: EOMI, PERRL Pupil Exam: PERRL. absent: Miosis, Mydriatic - ENT Exam ENT Exam: Mucous Membranes Moist, Normal Oropharynx - Neck Exam Neck Exam: Full ROM, Normal Inspection - Respiratory Exam Respiratory Exam: Clear to Ausculation Bilateral. absent: Rales, Rhonchi, Wheezes - Cardiovascular Exam Cardiovascular Exam: RRR, +S1, +S2. absent: Gallop, Rubs - Extremities Exam Additional comments: LLE 1-2+ pitting edema - Neurological Exam Neurological Exam: Alert, Awake - Psychiatric Exam Psychiatric exam: Normal Affect, Normal Mood - Skin Skin Exam: Dry, Intact, Normal Color, Warm Assessment and Plan - Assessment and Plan (Free Text) Assessment: 81 year old male with history of Diabetes, spinal stenosis, Prostate cancer s/p radiation therapy, and chronic idiopathic constipation on Linzess/Miralax/ Colace at home presenting with left leg pain and swelling after recent fall. Active treatment of left lower extremity DVT and acute on chronic anemia with full dose Lovenox. Prior colonoscopy four years ago endorsed to be normal. Plan: >colonoscopy- poor prep, incomplete exam >EGD- LAGD esophagitis, lower 1/3 esophageal 5mm ulcer, Gastritis >continue PPI BID >primary team ordered 2 Unit pRBCs, managing hypercoagulable workup and LLE DVT >consider CT scan to rule out retroperitoneal bleed >consider hematology consultation >received Iron sucrose 05/24-05/26 >recommend outpatient follow up for elective repeat of colonoscopy <Blaze Ryder MD - Last Filed: 05/27/17 11:49> Objective - Vital Signs/Intake and Output Vital Signs (last 24 hours): Temp Pulse Resp BP Pulse Ox 98.5 F 90 18 110/58 L 97 05/27/17 09:47 05/27/17 10:46 05/27/17 09:47 05/27/17 10:46 05/27/17 06:00 Intake and Output: 05/27/17 05/27/17 06:59 18:59 Intake Total 1300 0 Output Total 1600 Balance -300 0 - Medications Medications: Current Medications Albuterol/Ipratropium (Duoneb 3 Mg/0.5 Mg (3 Ml) Ud) 3 ml IH [id number] [facility] Last Admin: 05/27/17 07:59 Dose: 3 ml Atenolol (Tenormin) 12.5 mg PO BID [facility] Last Admin: 05/27/17 10:46 Dose: 12.5 mg Atorvastatin Calcium (Lipitor) 40 mg PO DIN [facility] Last Admin: 05/26/17 18:31 Dose: 40 mg Cholecalciferol (Vitamin D) 2,000 iu PO DAILY [facility] Last Admin: 05/27/17 10:48 Dose: 2,000 iu Docusate Sodium (Colace) 100 mg PO TID [facility] Last Admin: 05/27/17 10:43 Dose: 100 mg Ergocalciferol (Drisdol 50,000 Intl Units Cap) 1 cap PO Q7D [facility] Last Admin: 05/22/17 20:07 Dose: 1 cap Finasteride (Proscar) 5 mg PO DAILY [facility] Last Admin: 05/27/17 10:45 Dose: 5 mg Folic Acid (Folic Acid) 1 mg PO DAILY [facility] Last Admin: 05/27/17 10:48 Dose: 1 mg Furosemide (Lasix) 20 mg IVP Q6H [facility] Stop: 05/27/17 13:16 Gabapentin (Neurontin) 100 mg PO TID [facility] PRN Reason: Protocol Last Admin: 05/27/17 10:45 Dose: 100 mg Lidocaine (Lidoderm) 1 ea TD DAILY [facility] Last Admin: 05/27/17 10:49 Dose: 1 ea Lorazepam (Ativan) 0.5 mg PO HS PRN; Protocol PRN Reason: Anxiety Last Admin: 05/23/17 21:50 Dose: 0.5 mg Pantoprazole Sodium (Protonix Ec Tab) 40 mg PO ACBD [facility] Last Admin: 05/27/17 08:37 Dose: 40 mg Polyethylene Glycol (Miralax) 17 gm PO TID [facility] Last Admin: 05/27/17 10:48 Dose: 17 gm Pregabalin (Lyrica) 100 mg PO TID [facility] Last Admin: 05/27/17 10:48 Dose: 100 mg Simethicone (Mylicon Chew Tab) 80 mg PO P[facility]S PRN PRN Reason: GI distress Tamsulosin HCl (Flomax) 0.4 mg PO DAILY [facility] Last Admin: 05/27/17 10:49 Dose: 0.4 mg Tramadol HCl (Ultram) 50 mg PO BID [facility] Last Admin: 05/27/17 10:45 Dose: 50 mg - Labs Labs: 05/27/17 05:40 05/27/17 05:40 PT 10.7 Seconds (9.9-11.8) 05/23/17 17:10 INR 0.99 (0.93-1.08) 05/23/17 17:10 APTT 32.8 Seconds (23.7-30.8) H 05/23/17 17:10 Attending/Attestation - Attestation I have personally seen and examined this patient.: Yes I have fully participated in the care of the patient.: Yes I have reviewed all pertinent clinical information, including history, physical exam and plan: Yes Notes (Text): 05/27/17 11:47 Patient seen with Gi fellow at bedside. This is a 81 year old male with history of DM, spinal stenosis, Prostate cancer s/p radiation therapy, and chronic idiopathic constipation on Linzess/Miralax/Colace at home presenting with left leg pain and swelling after recent fall found to have LLE DVT and acute on chronic anemia with full dose Lovenox. Prior colonoscopy four years ago endorsed to be normal. s/p EGD LA grade D esophagitis, lower 1/3 esophageal 5mm ulcer, Gastritis and will continue PPI BID. Colonoscopy incomplete exam with poor prep. Needs repeat colonoscopy as outpatient. CT AP upon admission did dnot show any retroperitoneal blood. No other GI work up recommended currently. Continue acute DVT work up and therapy.
[2017-05-27] MEDS ORDERED: Barium Sulfate Susp 2.1% w/v, 2.0% w/w 450 mL Bottle PO ONE (07:37)
[2017-05-27] MEDS ORDERED: Iohexol 350 MG/100 ML VIAL ONE (07:40)
--- NOTE | 2017-05-27 07:45 | CP.PCM.PN ---
Subjective - Date & Time of Evaluation Date of Evaluation: 05/27/17 Time of Evaluation: 07:38 - Subjective Subjective: Medicine Progress Note Patient seen and examined at bedside. There were no acute overnight events. Patient reports feeling weak today, but denies CP, SOB, n/v, numbness/tingling, fever or chills. He does report having loose stool last night, but denies dark color or blood. Objective - Vital Signs/Intake and Output Vital Signs (last 24 hours): Temp Pulse Resp BP Pulse Ox 98.2 F 87 20 100/54 L 97 05/27/17 06:46 05/27/17 06:00 05/27/17 06:00 05/27/17 06:00 05/27/17 06:00 Intake and Output: 05/27/17 05/27/17 06:59 18:59 Intake Total 1300 Output Total 1600 Balance -300 - Medications Medications: Current Medications Albuterol/Ipratropium (Duoneb 3 Mg/0.5 Mg (3 Ml) Ud) 3 ml IH [id number] [facility] Last Admin: 05/27/17 01:55 Dose: 3 ml Atenolol (Tenormin) 12.5 mg PO BID [facility] Last Admin: 05/26/17 18:31 Dose: 12.5 mg Atorvastatin Calcium (Lipitor) 40 mg PO DIN [facility] Last Admin: 05/26/17 18:31 Dose: 40 mg Cholecalciferol (Vitamin D) 2,000 iu PO DAILY [facility] Last Admin: 05/26/17 10:00 Dose: Not Given Docusate Sodium (Colace) 100 mg PO TID [facility] Last Admin: 05/26/17 18:31 Dose: 100 mg Ergocalciferol (Drisdol 50,000 Intl Units Cap) 1 cap PO Q7D [facility] Last Admin: 05/22/17 20:07 Dose: 1 cap Finasteride (Proscar) 5 mg PO DAILY [facility] Last Admin: 05/26/17 10:00 Dose: Not Given Folic Acid (Folic Acid) 1 mg PO DAILY [facility] Last Admin: 05/26/17 10:00 Dose: Not Given Furosemide (Lasix) 20 mg IVP Q6H [facility] Stop: 05/27/17 13:16 Gabapentin (Neurontin) 100 mg PO TID [facility] PRN Reason: Protocol Last Admin: 05/26/17 18:30 Dose: 100 mg Lidocaine (Lidoderm) 1 ea TD DAILY [facility] Last Admin: 05/26/17 15:00 Dose: 1 ea Lorazepam (Ativan) 0.5 mg PO HS PRN; Protocol PRN Reason: Anxiety Last Admin: 05/23/17 21:50 Dose: 0.5 mg Pantoprazole Sodium (Protonix Ec Tab) 40 mg PO ACBD [facility] Last Admin: 05/26/17 18:33 Dose: 40 mg Polyethylene Glycol (Miralax) 17 gm PO TID [facility] Last Admin: 05/26/17 18:30 Dose: 17 gm Pregabalin (Lyrica) 100 mg PO TID [facility] Last Admin: 05/26/17 18:30 Dose: 100 mg Tamsulosin HCl (Flomax) 0.4 mg PO DAILY [facility] Last Admin: 05/26/17 10:00 Dose: Not Given Tramadol HCl (Ultram) 50 mg PO BID [facility] Last Admin: 05/26/17 18:30 Dose: 50 mg - Labs Labs: 05/27/17 05:40 05/27/17 05:40 PT 10.7 Seconds (9.9-11.8) 05/23/17 17:10 INR 0.99 (0.93-1.08) 05/23/17 17:10 APTT 32.8 Seconds (23.7-30.8) H 05/23/17 17:10 - Constitutional Appears: No Acute Distress - Head Exam Head Exam: ATRAUMATIC, NORMAL INSPECTION, NORMOCEPHALIC - Eye Exam Eye Exam: Normal appearance, PERRL Pupil Exam: NORMAL ACCOMODATION, PERRL - ENT Exam ENT Exam: Mucous Membranes Moist - Neck Exam Neck Exam: Full ROM - Respiratory Exam Respiratory Exam: Clear to Ausculation Bilateral, NORMAL BREATHING PATTERN. absent: Rales, Rhonchi, Wheezes - Cardiovascular Exam Cardiovascular Exam: REGULAR RHYTHM, +S1, +S2. absent: Gallop, Rubs, Murmur - GI/Abdominal Exam GI & Abdominal Exam: Distended, Tenderness (diffuse ), Normal Bowel Sounds. absent: Rigid, Mass, Rebound - Extremities Exam Extremities Exam: Pedal Edema, Tenderness (L leg ). absent: Calf Tenderness - Neurological Exam Neurological Exam: Alert, Awake, CN II-XII Intact, Oriented x3 - Psychiatric Exam Psychiatric exam: Normal Affect, Normal Mood - Skin Skin Exam: Dry, Intact, Normal Color, Warm Assessment and Plan - Assessment and Plan (Free Text) Assessment: This is a 81Y M with PMH DM, HTN, Vit D def, spinal stenosis, prostate cancer s/ p radiation, chronic idiopathic constipation admitted for L leg DVT who is also found to have anemia. Plan: 1. L leg DVT - Hypercoag work up showed weakly positive for Lupus anticoag, r/o malignancy - GI consulted- recs appreciated- signed off at this time - Colonoscopy showed poor prep- GI reports repeat as outpt in 1 month - IR- Dr. Luong consulted- IVC filter on - Heme consulted- recs appreciated - Eliquis 10mg BID started for 7 days then pt will be on 5mg BID 2. Anemia - iron deficiency versus Heparin induced vs. retropertioneal bleed - Hgb 8.9, MCV: 76 - Transfuse 2U with Lasix 20IVP given after each U - CT abd/pelvis done- no retroperitoneal bleed seen - Continue Folic acid - Colonoscopy showed poor prep - EGD showed non-bleeding esophageal ulcer - Hep ab pending 3. Hypokalemia - secondary to diarrhea - Potassium replaced 4. BPH with Hx of Prostate cancer s/p radiation - Continue Proscar and Flomax 5. Transient A.fib with RVR - No further episodes of A.fib noted - Continue Atenolol - Cardiology- Dr. Salmon consulted - Continue B-jessica as per cardio - Echo showed EF of 55%, borderline LVH, mild aortic and tricuspid regurg 6. HTN - Continue Atenolol 7. Hx of dyslipidemia - Continue Lipitor 8. Hx of chronic idiopathic diarrhea - Continue Miralax and Colace - GI consulted- recs appreciated - CT showed gas and constipation - Mag- Citrate ordered 9. Hx of Spinal stenosis - Continue Lyrica, Tramadol, Lidoderm cream, Gabapentin 10. Hx of anxiety - Xanax HS prn 11. Vit D deficiency - Continue Vit D and Drisdol GI ppx: Protonix DVT ppx: SCDs Dispo: PT recommended [facility]. Pt accepted to [facility]. Will be transferred once medically stable. IVC filter planned for Case seen, reviewed and discussed with Dr. Sarah Dotson PGY2
[2017-05-27 07:59] LABS: THROMBIN CLOTTING TIME 17 sec (13-19)
[2017-05-27] MEDS: Pantoprazole 40 mg EC Tab PO SCH ×2 (08:37→18:32)
[2017-05-27] MEDS ORDERED: Simethicone 80 mg Chewtab PO PRN (08:48)
--- NOTE | 2017-05-27 08:50 | PN ---
DATE: 05/27/2017 SUBJECTIVE: The patient is resting comfortably. PHYSICAL EXAMINATION: VITAL SIGNS: Blood pressure 100/54 and heart rate in the 80s normal sinus rhythm. NECK: Negative JVD. HEART: S1 and S2. LUNGS: Without rales. EXTREMITIES: Without edema. LABORATORY DATA: Hemoglobin is 8.9. Chemistry essentially unchanged. IMPRESSION: 1. The patient remains in normal sinus rhythm after an episode of atrial fibrillation. 2. Anemia. 3. Hypertension. 4. The patient is to complete his gastrointestinal workup. PLAN: We will monitor in telemetry for 24 hours while he is undergoing his GI workup. Patrick Salmon MD
[2017-05-27] MEDS: POLYETHYLENE GLYCOL 3350 17 GM/Dose PACKET PO SCH ×3 (10:48→18:34)
[2017-05-27] MEDS: Lidocaine 5% Patch TD SCH (10:49)
[2017-05-27] MEDS: Potassium Chloride 40 mEq/30 ml LIQ UD PO ONE ×2 (10:53→10:57)
[2017-05-27] MEDS ORDERED: Magnesium Citrate Oral SOL (300 ml) PO ONE ×2 (12:38→16:15)
--- NOTE | 2017-05-27 12:40 | CT ---
PROCEDURE: CT Abdomen and Pelvis with contrast HISTORY: r/o retroperitoneal bleed COMPARISON: CT 05/24/2017 TECHNIQUE: Contrast dose: Readi-Cat 2 bottles ; 100 mL Omnipaque 350 Radiation dose: Total exam DLP = 869 mGy-cm. This CT exam was performed using one or more of the following dose reduction techniques: Automated exposure control, adjustment of the mA and/or kV according to patient size, and/or use of iterative reconstruction technique. FINDINGS: LOWER THORAX: Dependent bilateral pleural effusions left greater than right with passive compressive atelectasis present. Concomitant left basal infiltrate not excluded. LIVER: Few small right hepatic lobe cyst are present. The largest appears to represent 2 contiguous cysts measuring up to 1.9 cm in total between the middle and right hepatic draining vein near the dome GALLBLADDER AND BILE DUCTS: Post cholecystectomy status. No unexpected dilated ducts PANCREAS: Unremarkable. No gross lesion or ductal dilatation. SPLEEN: Unremarkable. ADRENALS: Unremarkable. No mass. KIDNEYS AND URETERS: Right extra renal pelviectasis. No hydronephrosis. No solid mass. VASCULATURE: Unremarkable. No aortic aneurysm. BOWEL: Patulous cecum. No obstruction. No gross mural thickening. Diffuse gas throughout the redundant colonic loops. No distal obstructing lesion. No significant small bowel dilatation suggested. APPENDIX: Normal appendix. PERITONEUM: Unremarkable. No free fluid. No free air. LYMPH NODES: Unremarkable. No enlarged lymph nodes. BLADDER: Moderately distended. No intraluminal masses or bladder wall thickening REPRODUCTIVE: Symmetrical symmetrical seminal vesicles. Prostate probably top-normal BONES: The multiple compression fractures are renoted. The L2 compression deformity is unchanged with 03/19/2015. L3 vertebral body compression fracture is new since 2014 T12 compression fracture is new and/or has progressed since 2014 no retropulsed ossific fragments into the canal noted OTHER FINDINGS: Mottled ingested food material dependent in the gastric fundus The 1.7 cm round low-density fluid like focus and/or lymphocele lfocus in the right groin is stable since 2014. Mild subcutaneous reticulated edema -diffuse IMPRESSION: . Since 2014 interval compression fractures occurred as detailed above. No retropulsed ossific fragments into the spinal canal noted Bilateral dependent pleural effusions with passive compressive atelectatic changes similar with the most recent 05/24/2017 study. These are are interval changes compared to 2015. Concomitant current left basal infiltrate is not excluded. No visceral malignant appearing mass suspect. No suspect lymphadenopathy Few benign small liver cysts. Status post cholecystectomy. No unexpected dilated ducts
[2017-05-27] MEDS ORDERED: Midazolam 2 MG/2 ML VIAL ONE (13:10)
[2017-05-27] MEDS ORDERED: Lidocaine 2% Inj (20ml) ONE (13:10)
[2017-05-27] MEDS ORDERED: Iodixanol 320 MG/ML 200 ML BOTTLE IV ONE (13:11)
[2017-05-27] MEDS ORDERED: Iodixanol 320 MG/ML 100 ML BOTTLE IV ONE (13:11)
--- NOTE | 2017-05-27 14:58 | VASCULAR ---
PROCEDURE: IVC Filter placement HISTORY: Lower extremity DVT. Recent bleeding on anticoagulation. Needs IVC filter. PHYSICIAN(S): Patrick Luong MD. TECHNIQUE: The relative risks and indications of the procedure were explained to the patient and consent obtained. The patient was placed supine on the arteriogram table and both groins prepped and draped usual sterile fashion. Conscious sedation and monitoring were provided throughout the procedure by a nurse. Initial attempts at puncture in the right common femoral vein were unsuccessful. Ultrasound revealed a chronically occluded and small right common femoral vein. Subsequently the thrombosed left common femoral vein was punctured under ultrasound guidance. A 5 Kiswahili sheath was placed on the left. A limited left iliac venogram was performed. This revealed a patent left common iliac vein. A flush catheter was placed the left common iliac vein and a PA DSA IVC gram performed. Renal veins were carefully marked. 0.035 floppy wire was placed in the right atrium. 6.5 cm sheath was placed at the level of the renal veins. An argon retrievable filter was deployed at the level of L2-3. A post deployment cavogram was performed. The sheath was removed hemostasis obtained. The patient tolerated the procedure well. FINDINGS: The left common femoral vein and left external iliac vein are acutely thrombosed. The left common iliac vein is patent. The inferior vena cava is normal without evidence of thrombus. Renal veins are easily identified. An argon retrievable filter was deployed at the level of L2-3. IMPRESSION: 1. Acute left external iliac vein and common femoral vein thrombosis. The left common iliac vein is patent. 2. Successful placement of an argon retrievable filter in the infrarenal IVC at L2-3
--- NOTE | 2017-05-27 15:29 | PN ---
DATE: 05/27/2017 SUBJECTIVE: The patient seen in room 262, bed 1. Overnight events were noted. The patient could not undergo a colonoscopy because of poor prep and fecal retention. PHYSICAL EXAMINATION VITAL SIGNS: T-max is 98.3. Telemetry shows sinus rhythm. No atrial fibrillation noted. Heart rate 90's and 88, blood pressure 123/56, respirations 19, O2 saturations is 95-97%. INTAKE AND OUTPUT: Intake 1300, output 1600. HEAD: Normocephalic and atraumatic. HEENT: Shows pale conjunctivae, anicteric sclerae. No oropharyngeal lesion. CHEST: Kyphosis. LUNGS: Shows questionable decreased sounds at the bases. CARDIOPULMONARY: S1, S2, regular rhythm. ABDOMEN: Protuberant, distended. Positive bowel sound. GENITALIA: Male. EXTREMITIES: Show pitting edema of the lower extremity left more than the right. The patient has been refusing SCD and TEDS. MUSCULOSKELETAL: Shows a body mass index of 25.5. Gait examination could not be tested NEUROLOGIC: The patient is neurologically alert, awake, responsive. DIAGNOSTIC DATA: 05/27/2017, WBC 5.4, hemoglobin and hematocrit has dropped from 8.9 and 27.2 from admission hemoglobin of 12.5 and 37. Platelet 193, granulocytes 69. Lupus anticoagulant was detected. Sodium 133, potassium 3.5, chloride 97, CO2 31, anion gap 9, BUN down to 22, creatinine 0.8, GFR greater than 60, glucose 109, calcium 7.7, phosphorus 2.7, magnesium 2.3. LFTs are normal. Troponin is negative. Rheumatoid factor is pending. KARYN is negative. C3 complement elevated at 199 which is slightly elevated. The patient had a repeat CAT scan of the abdomen and pelvis done because of decreasing hemoglobin and hematocrit which was done with p.o. and IV contrast, shows bilateral bibasilar pleural effusion compressive atelectasis, questionable left lower lobe pneumonia, hepatic cyst, cholecystectomy, and distended bladder, L2 compression fracture, retained food in the gastric fundus. He is on Proscar and Flomax. EKG from today shows sinus rhythm, left anterior hemiblock. The patient seen by gastroenterology. Plan was noted. Recommendation was to elective repeat colonoscopy, poor prep with the stool in the entire colon. EGD shows nonbleeding superficial esophageal ulcer, [place] grade D mucosal breaks involving the 75% of esophageal circumflex, esophagitis, diffuse gastric erythema noted, hiatal hernia noted. IMPRESSION AND PLAN: 1. Acute blood loss anemia with decreasing hemoglobin and hematocrit, etiology undetermined. 2. Probably provoked left lower extremity hypoechoic acute occlusive thrombus of the left common femoral vein and left femoral vein. 3. Recurrent fall and gait dysfunction. 4. Chronic idiopathic constipation. 5. History of hypertension. 6. Paroxysmal atrial fibrillation converted to normal sinus rhythm. 7. Granulocytosis. 8. Elevated erythrocyte sedimentation rate. 9. Weakly positive lupus anticoagulant. 10. Hypokalemia. 11. Transient hyponatremia. 12. Prerenal kidney injury. 13. Hyperphosphatemia and hypermagnesemia. 14. Protein malnutrition and hyponatremia. 15. Iron deficiency. 16. Mild homocysteinemia. 17. Bilateral pleural effusion and bibasilar atelectasis with possible left lower lobe pneumonia. 18. Hepatic cyst. 19. Status post cholecystectomy. 20. Urinary bladder distention. 21. Prostatomegaly. 22. L2, L3, and T12 compression fracture. 23. Questionable gastroparesis with retained food particles in the gastric fundus. 24. History of spinal stenosis. 25. Chronic idiopathic constipation. 26. Left anterior hemiblock. 27. Status post esophagogastroduodenoscopy. 28. Nonbleeding superficial esophageal ulcer in the lower third of esophagus. 29. [place] grade D esophagitis without bleeding with 1 or more mucosal breaks involving at least 75% of the esophageal circumference. 30. Gastritis. 31. Hiatal hernia. 32. Status post attempted colonoscopy with poor colonoscopy prep and fecal retention. 33. Deconditioning. 34. Left ventricular ejection fraction of 55% with mild pulmonary arterial hypertension with right ventricular systolic pressure of 44 mmHg. 35. Left ventricular hypertensive cardiovascular disease. 36. Mild aortic regurgitation, trace mitral regurgitation, and trace to mild tricuspid regurgitation. 1. Questionable provoked versus unprovoked left lower extremity deep venous thrombosis of the left common femoral vein and left femoral vein with hypoechoic acute occlusive thrombus. 2. Anemia with decreasing hemoglobin and hematocrit. 3. Paroxysmal atrial fibrillation (resolved). 4. Bibasilar atelectasis and bilateral upper lobe atelectasis. 5. A 3.9 cm ascending aortic dilatation. 6. Bilateral small pleural effusion. 7. Large hiatal hernia. 8. Multilevel thoracic spondylosis. 9. T12 severe compression fracture and mild compression fracture of L2-L3 with anterior wedging of indeterminate age. 10. Right hepatic lobe cyst. 11. Cholecystectomy. 12. Prostatomegaly. 13. Left ventricular ejection fraction of 55%. 14. Pulmonary arterial hypertension with right ventricular systolic pressure of 44 mmHg. 15. Left ventricular hypertrophy. 16. Mild aortic and trace mitral regurgitation and mild tricuspid regurgitation. 17. Gait dysfunction. 18. Recurrent falls. 19. Left anterior hemiblock. 20. Paroxysmal atrial fibrillation with left anterior hemiblock with rapid ventricular response (resolved). 21. Chronic idiopathic constipation. 22. Elevated erythrocyte sedimentation rate. 23. Hyponatremia. 24. Hypokalemia. 25. Prerenal kidney injury. 26. Hyperphosphatemia. 27. Mild hypoalbuminemia and protein malnutrition. 28. Hypovitaminosis D. 29. Mild hyperhomocysteinemia. 30. A+ blood type. 31. History of anxiety. 32. Constipation. 33. Prostate carcinoma and prostate hypertrophy. 34. History of iron deficiency. 35. History of dyslipidemia. 36. History of neuropathy. 1. Acute probably unprovoked left lower extremity deep venous thrombosis of the left common femoral vein and left femoral vein, occlusive hypoechoic thrombus, probably unprovoked. 2. Transient hypotension, probably secondary to diuretics. 3. Bilateral lower extremity venous stasis (resolved). 4. Normocytic anemia. 5. Granulocytosis. 6. Elevated erythrocyte sedimentation rate of 40. 7. Prerenal kidney injury. 8. Hyperglycemia. 9. Hyperphosphatemia. 10. Iron deficiency. 11. Hypervitaminosis D. 12. Hypercholesterolemia with elevated LDL. 13. Bibasilar atelectasis and bilateral upper lobe atelectasis. 14. A 3.9-cm ascending thoracic aorta. 15. Bilateral small and minimal pleural effusion. 16. [id number] T12 compression fracture with mild compression fracture of L2-L3 with anterior wedging with indeterminate age. 17. Right hepatic lobe 1.5-cm hepatic cyst. 18. Fecal stasis and constipation. 19. Cholecystectomy. 20. Prostatomegaly with history of prostate carcinoma. 21. Large hiatal hernia. 22. 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 23. History of prostate carcinoma, status post radiation therapy. 24. Fecal retention. 25. Chronic idiopathic constipation. 26. Iron deficiency. 27. History of anxiety. 28. Hypovitaminosis D. 29. Prostatic hypertrophy. 30. Dyslipidemia. 31. Neuropathy. 1. Left lower extremity, possibly unprovoked deep venous thrombosis. 2. 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 3. History of hypertension. 4. History of questionable type 2 diabetes mellitus. 5. History of chronic constipation. 6. History of cholecystectomy. 7. History of degenerative joint disease of the lumbar spine with laminectomy. 8. History of T12 compression fracture. 9. History of gait dysfunction. 10. History of prostate carcinoma with history of radiation treatment. 11. Past medical history is also significant for chronic constipation, history of hypovitaminosis D, history of prostatic hypertrophy, history of dyslipidemia, and history of neuropathy. 12. Mild normocytic anemia with granulocytosis. 13. 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 14. Left common femoral vein and left femoral vein occlusive hypoechoic thrombus, probably unprovoked. 15. Status post fall with gait dysfunction. 16. 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 17. 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 18. Prominent left ring cisterna magna. 19. Left ribcage and hip and pelvic contusion secondary to fall. 20. Bibasilar atelectasis. 21. Cardiomegaly. 22. Cholecystectomy. 23. Degenerative joint disease of the thoracic and lumbar spine with dextroscoliosis of the thoracolumbar spine. 24. Bilateral hip joint narrowing. 25. Lumbar spine degenerative spondylosis. 26. Degenerative joint disease of the hips. 27. History of constipation with bowel diagnosis. 28. History of prostate carcinoma. 29. Degenerative joint disease with compression of the lumbar spine. 30. History of severe gait dysfunction and recurrent fall. 31. 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 32. Bilateral lower extremity weakness. 33. Severe lumbar spinal stenosis. 34. L2-L5 decompressive laminectomy. 35. T12 compression fracture. 36. Lumbar spine degenerative disk disease, disk bulging, and spinal stenosis. 37. Vitamin B12 deficiency. 38. History of prostatic hypertrophy. 39. Insomnia. 40. Anxiety disorder. 41. Atelectasis. 42. Multilevel lumbar spine degenerative disk disease and T12 compression fracture in 2014. 43. History of left lower extremity weakness with left footdrop. 44. L2-L5 decompression lumbar laminectomy. 45. Vitamin B12 and folate deficiency. 46. Aortic valve sclerosis. PLAN: At this time the patient has been ordered transfusion of the RBC. Repeat labs have been ordered. Hematology and oncology consultation has been ordered. The patient is awaiting for an inferior vena cava filter placement today by Dr. Patrick Luong. CURRENT MEDICATIONS: 1. Ativan 1.5 mg at bedtime p.r.n. 2. The patient has given a bottle of magnesium citrate. 3. Colace 100 mg 3 times a day. 4. Drisdol 50,000 weekly. 5. DuoNeb nebulizer every 6 hours. 6. Eliquis started on 10 mg twice a day for 7 days then 5 mg twice a day. 7. Flomax 0.4 daily. 8. Folic acid 1 mg daily. 9. Potassium supplementation has been ordered. 10. The patient has given Lasix 20 mg IV prior to each PRPC. 11. Lidoderm patch. 12. Lipitor 40 mg daily. 13. Lyrica 100 mg 3 times a day. 14. Miralax 17 g 3 times a day. 15. Simethicone 80 mg after meals and at bedtime p.r.n. 16. Neurontin 100 mg 3 times a day. 17. The patient has been also ordered potassium riders. 18. Proscar 5 mg daily. 19. Protonix 40 mg twice a day. 20. Tenormin 12.5 twice a day. 21. Ultram 50 mg twice a day. 23. Vitamin D3 2000 IU daily. Repeat EKG was done today. Cardiology and gastroenterology recommendations noted. The patient once cleared by GI and hematology/oncology, the patient will be discharge to rehab. Dictated and electronically signed, not read. Kian Smith MD [email or web address]
--- NOTE | 2017-05-27 16:03 | CARD ---
APPROVED REPORT EKG Measurement Heart [id number] <Conclusion> Sinus rhythm with 1st degree AV block Left anterior fascicular block PRWP NSSTW changes Prolonged QTc
[2017-05-27 22:58] LABS: BASO # 0.03 K/mm3 (0.0-2.0); BASO % 0.4 % (0.0-3.0); EOS # 0.2 (0.0-0.7); GRAN # 6.05 (1.4-6.5); GRAN % 80.8 % (50.0-68.0); HEMOGLOBIN 12.2 gm/dL (14.0-18.0); LYMPH # 0.6 (1.2-3.4); LYMPH % 8.4 % (22.0-35.0); MEAN CELL VOLUME 81.4 fL (80.0-105.0); MEAN CORPUSCULAR HEMOGLOBIN 27.4 pg (25.0-35.0); MEAN CORPUSCULAR HGB CONC 33.6 g/dl (31.0-37.0); MEAN PLATELET VOLUME 9.2 fl (7.0-11.0); MONO # 0.6 (0.1-0.6); MONO % 8.4 % (1.0-6.0); PLATELET COUNT 184 10^3/uL (120.0-450.0); RBC 4.46 10^6/uL (3.5-6.1); RED CELL DISTRIBUTION WIDTH 14.8 % (11.5-14.5); WHITE BLOOD COUNT 7.5 10^3/ul (4.5-11.0)
--- NOTE | 2017-05-28 01:30 | CT ---
EXAM: CT Abdomen and Pelvis Without Intravenous Contrast CLINICAL HISTORY: 81 years old, male; Pain; Abdominal pain; Generalized; Prior surgery; Surgery date: Post-operative (0-2 days); Surgery type: Ivc filter; Additional info: Abd pain S/P ivc filter TECHNIQUE: Axial computed tomography images of the abdomen and pelvis without intravenous contrast. This CT exam was performed using one or more of the following dose reduction techniques: automated exposure control, adjustment of the mA and/or kV according to patient size, and/or use of iterative reconstruction technique. Coronal and sagittal reformatted images were created and reviewed. COMPARISON: CT - ABD PELVIS PO IV CONTRAST 05/27/2017 11:18:02 AM FINDINGS: Limitations: Lack of intravenous contrast. Lower thorax: Small bilateral pleural effusions. Mild atelectasis/scarring. Peripheral consolidation and air bronchograms within lower lobes with associated volume loss, LEFT greater than RIGHT. Small hiatal hernia. ABDOMEN: Liver: Few probable hepatic cysts. Few calcifications. Gallbladder and bile ducts: Cholecystectomy. No ductal dilation. Pancreas: Unremarkable. No ductal dilation. Spleen: No splenomegaly. Adrenals: No mass. Kidneys and ureters: Residual enhancement of kidneys. Contrast within renal collecting system. No hydronephrosis. Stomach and bowel: Air distention of cecum, similar to previous examination. No definite mural thickening. No obstruction. Appendix: No findings to suggest acute appendicitis. PELVIS: Bladder: Contrast within bladder. Reproductive: Unremarkable as visualized. ABDOMEN and PELVIS: Intraperitoneal space: No significant fluid collection. No free air. Bones/joints: Several LEFT lower rib fractures, stable. Several compression deformities of lumbar spine, grossly stable. Soft tissues: Mild stranding within subcutaneous tissues. Vasculature: IVC filter. Mild atherosclerotic disease. No aneurysm. Minimal haziness about LEFT external iliac and common femoral veins. Lymph nodes: No pathologically enlarged lymph nodes. IMPRESSION: 1. Bilateral pleural effusions with bibasilar atelectasis +/- pneumonia. 2. Residual enhancement of kidneys. Correlate with renal function. 3. Incidental/non-acute findings are described above.
[2017-05-28] MEDS: Albuterol-Ipratrop 3 mg / 0.5 (3 ml) UD IH SCH ×4 (02:15→20:42)
[2017-05-28 05:36] LABS: BASO # 0.03 K/mm3 (0.0-2.0); BASO % 0.5 % (0.0-3.0); EOS # 0.1 (0.0-0.7); GRAN # 4.37 (1.4-6.5); GRAN % 71.3 % (50.0-68.0); HEMOGLOBIN 11.8 gm/dL (14.0-18.0); MEAN CELL VOLUME 82.3 fL (80.0-105.0); MEAN CORPUSCULAR HEMOGLOBIN 27.5 pg (25.0-35.0); MEAN CORPUSCULAR HGB CONC 33.4 g/dl (31.0-37.0); MEAN PLATELET VOLUME 9.8 fl (7.0-11.0); MONO # 0.6 (0.1-0.6); MONO % 9.2 % (1.0-6.0); PLATELET COUNT 197 10^3/uL (120.0-450.0); RBC 4.29 10^6/uL (3.5-6.1); RED CELL DISTRIBUTION WIDTH 15.1 % (11.5-14.5); WHITE BLOOD COUNT 6.1 10^3/ul (4.5-11.0)
[2017-05-28 06:00] LABS: ALB/GLOB RATIO 1.2 (1.1-1.8); ALT/SGPT 33 U/L (7-56); AST/SGOT 36 U/L (15-59); BILIRUBIN,DIRECT 0.3 mg/dL (0.0-0.4); BLOOD UREA NITROGEN 16 mg/dL (7-21); CALCIUM 8.2 mg/dL (8.4-10.5); GFR AFRICAN-AMERICAN > 60; GFR NON-AFRICAN AMERICAN > 60; MAGNESIUM 2.4 mg/dL (1.7-2.2)
--- NOTE | 2017-05-28 07:20 | CP.PCM.PN ---
Subjective - Date & Time of Evaluation Date of Evaluation: 05/28/17 Time of Evaluation: : - Subjective Subjective: Medicine Progress Note Patient seen and examined at bedside. Patient had IVC filter placed yesterday. Overnight patient was complaining of abdominal pain and distention. CT abd/ pelvis was repeated by night team which showed possible pleural effusion/ atelectasis of the lungs bilaterally. There was no evidence of bowel perforation , abdominal gas and distention was seen, which was similar to prior CT. Last night he was able to pass gas, which relieved his pain. Patient reports his abdominal pain and distention has improved. He denies CP, SOB, n/v/d, numbness/ tingling. He is encouraged to get out of bed to chair and work with physical therapy. Objective - Vital Signs/Intake and Output Vital Signs (last 24 hours): Temp Pulse Resp BP Pulse Ox 98.3 F 72 19 102/60 95 05/28/17 06:00 05/28/17 06:00 05/28/17 06:00 05/28/17 06:00 05/28/17 06:00 Intake and Output: 05/28/17 05/28/17 06:59 18:59 Intake Total 325 Output Total 300 Balance 25 - Medications Medications: Current Medications Albuterol/Ipratropium (Duoneb 3 Mg/0.5 Mg (3 Ml) Ud) 3 ml IH [id number] [facility] Last Admin: 05/28/17 02:15 Dose: 3 ml Atenolol (Tenormin) 12.5 mg PO BID [facility] Last Admin: 05/27/17 18:32 Dose: 12.5 mg Atorvastatin Calcium (Lipitor) 40 mg PO DIN [facility] Last Admin: 05/27/17 18:33 Dose: 40 mg Cholecalciferol (Vitamin D) 2,000 iu PO DAILY [facility] Last Admin: 05/27/17 10:48 Dose: 2,000 iu Docusate Sodium (Colace) 100 mg PO TID [facility] Last Admin: 05/27/17 18:39 Dose: 100 mg Ergocalciferol (Drisdol 50,000 Intl Units Cap) 1 cap PO Q7D [facility] Last Admin: 05/22/17 20:07 Dose: 1 cap Finasteride (Proscar) 5 mg PO DAILY [facility] Last Admin: 05/27/17 10:45 Dose: 5 mg Folic Acid (Folic Acid) 1 mg PO DAILY [facility] Last Admin: 05/27/17 10:48 Dose: 1 mg Furosemide (Lasix) 20 mg IVP Q12 [facility] Gabapentin (Neurontin) 100 mg PO TID [facility] PRN Reason: Protocol Last Admin: 05/27/17 18:32 Dose: 100 mg Doxycycline Hyclate 100 mg/ (Sodium Chloride) 100 mls @ 100 mls/hr IVPB Q12 [facility] PRN Reason: Protocol Ceftriaxone Sodium (Rocephin 1 Gram Ivpb) 1 gm in 100 mls @ 100 mls/hr IVPB DAILY [facility] PRN Reason: Protocol Lidocaine (Lidoderm) 1 ea TD DAILY [facility] Last Admin: 05/27/17 10:49 Dose: 1 ea Lorazepam (Ativan) 0.5 mg PO HS PRN; Protocol PRN Reason: Anxiety Last Admin: 05/23/17 21:50 Dose: 0.5 mg Pantoprazole Sodium (Protonix Ec Tab) 40 mg PO ACBD [facility] Last Admin: 05/27/17 18:32 Dose: 40 mg Polyethylene Glycol (Miralax) 17 gm PO TID [facility] Last Admin: 05/27/17 18:34 Dose: Not Given Potassium Chloride (K-Dur 20 Meq Er Tab) 20 meq PO BID [facility] Pregabalin (Lyrica) 100 mg PO TID [facility] Last Admin: 05/27/17 18:32 Dose: 100 mg Simethicone (Mylicon Chew Tab) 80 mg PO PCHS PRN PRN Reason: GI distress Tamsulosin HCl (Flomax) 0.4 mg PO DAILY [facility] Last Admin: 05/27/17 10:49 Dose: 0.4 mg Tramadol HCl (Ultram) 50 mg PO BID [facility] Last Admin: 05/27/17 18:36 Dose: 50 mg - Labs Labs: 05/28/17 04:30 05/28/17 04:30 PT 10.7 Seconds (9.9-11.8) 05/23/17 17:10 INR 0.99 (0.93-1.08) 05/23/17 17:10 APTT 32.8 Seconds (23.7-30.8) H 05/23/17 17:10 - Constitutional Appears: No Acute Distress - Head Exam Head Exam: ATRAUMATIC, NORMAL INSPECTION, NORMOCEPHALIC - Eye Exam Eye Exam: Normal appearance, PERRL Pupil Exam: NORMAL ACCOMODATION, PERRL - ENT Exam ENT Exam: Mucous Membranes Moist - Neck Exam Neck Exam: Full ROM - Respiratory Exam Respiratory Exam: Rales, Rhonchi, NORMAL BREATHING PATTERN. absent: Wheezes - Cardiovascular Exam Cardiovascular Exam: REGULAR RHYTHM, +S1, +S2. absent: Gallop, Rubs, Murmur - GI/Abdominal Exam GI & Abdominal Exam: Distended, Soft, Tenderness (mild diffuse), Normal Bowel Sounds. absent: Rigid, Mass, Rebound - Extremities Exam Extremities Exam: Calf Tenderness, Pedal Edema (trace), Tenderness (L leg) - Neurological Exam Neurological Exam: Alert, Awake, CN II-XII Intact, Oriented x3 - Psychiatric Exam Psychiatric exam: Normal Affect, Normal Mood - Skin Skin Exam: Dry, Intact, Normal Color, Warm Assessment and Plan - Assessment and Plan (Free Text) Assessment: This is a 81Y M with PMH DM, HTN, Vit D def, spinal stenosis, prostate cancer s/ p radiation, chronic idiopathic constipation admitted for L leg DVT who is also found to have anemia. Plan: 1. L leg DVT - secondary to decreased ambulation v malignancy v. hypercoag state - Pt has extensive DVT- Lovenox 80mg SC given - IVC filter in place- insertion site clean and dry - Heme consulted for + KARYN and possible malignancy and anticoagulation recommendations 2. Anemia- stable - Hgb 11.8 s/p 2U PRBC - Continue Folic acid - EGD showed non-bleeding esophageal ulcer - Hep ab pending - Heme consulted - check stool for occult blood 3. Pleural effusion v pneumonia - CT last night showed possible pleural effusion v atelectasis- r/o pneumonia - Afebrile, no leukocytosis - Pt started on Rocephin and Doxy - ID Consulted - Lasix 20q12 with K-Dur 20meq BID started for possible pleural effusion - Duoneb, N-Acetylcysteine - lactic acid and procalcitonin pending 4. BPH with Hx of Prostate cancer s/p radiation - Continue Proscar and Flomax 5. Transient A.fib with RVR - no more episodes noted - Continue Atenolol - Cardiology- Dr. Salmon consulted - Echo showed EF of 55%, borderline LVH, mild aortic and tricuspid regurg 6. HTN - Atenolol 7. Hx of dyslipidemia - Lipitor 8. Hx of chronic idiopathic diarrhea - Continue Miralax and Colace - GI consulted- recs appreciated - signed off - repeat CT showed gas and constipation - Simethicone added 9. Hx of Spinal stenosis - Gabapentin, Lyrica - Tramadol, Lidoderm cream 10. Hx of anxiety - Ativan prn 11. Vit D deficiency - Continue Vit D and Drisdol GI ppx: Protonix DVT ppx: SCDs, on dose LVX and has IVC filter Dispo: PT recommended [facility]. Pt accepted to [facility]. Will be transferred once medically stable. Case seen, reviewed and discussed with Dr. Sarah Dotson PGY2
[2017-05-28] MEDS: Acetylcysteine 20% Inhal Soln (4ml) IH SCH ×3 (07:36→20:41)
[2017-05-28] MEDS: cefTRIAXone 1 gm 1 GM/100 ML BAG IVPB SCH ×2 (08:16→09:11)
[2017-05-28] MEDS: Pantoprazole 40 mg EC Tab PO SCH ×2 (08:17→17:56)
[2017-05-28] MEDS ORDERED: Enoxaparin 80 mg Syringe SC ONE (09:08)
[2017-05-28] MEDS: POLYETHYLENE GLYCOL 3350 17 GM/Dose PACKET PO SCH ×3 (09:11→18:19)
[2017-05-28] MEDS: Potassium Chloride 20 mEq ER Tab PO SCH ×2 (09:41→17:59)
[2017-05-28] MEDS: Lidocaine 5% Patch TD SCH (09:41)
[2017-05-28] MEDS ORDERED: Vancomycin 1gm in NS 250ml 1 GM/250 ML BAG IVPB STA (10:22)
--- NOTE | 2017-05-28 10:22 | CP.PCM.CON ---
History of Present Illness - History of Present Illness History of Present Illness: 81 year old male with PMH of prostate cancer S/P radiation therapy, chronic constipation, DM, spinal stenosis S/P laminectomy and decompression of L2-L5 was initially brought in to [facility] because of left leg pain after a fall, with rib pain as well. Work up revealed that the patient has left lower extremity DVT and is currently on anticoagulation for this. He has been having some shortness of breath as well, and abdominal pain, and CT scan of the abdomen and pelvis was done which showed bilateral pleural effusion, left greater than right, with bilateral consolidations, unable to rule out pneumonia. Infectious Diseases consult is requested to further evaluate and manage. Thee patient is occasionally having SOB at rest, denies cough or chest pain currently, no fever or chills, has occasional nausea but no vomiting, no diarrhea, no dysuria. Past Patient History - Infectious Disease Hx of Infectious Diseases: None - Tetanus Immunizations Tetanus Immunization: Unknown - Past Medical History & Family History Past Medical History?: No - Past Social History Smoking Status: Never Smoked - CARDIAC Hx Hypercholesterolemia: Yes Hx Hypertension: Yes - PULMONARY Hx Respiratory Disorders: No Hx Asthma: (denies) - NEUROLOGICAL Hx Neurological Disorder: No - HEENT Hx HEENT Problems: No - RENAL Hx Chronic Kidney Disease: No - ENDOCRINE/METABOLIC Hx Endocrine Disorders: No - HEMATOLOGICAL/ONCOLOGICAL Hx Blood Transfusions: No Hx Blood Transfusion Reaction: No - INTEGUMENTARY Hx Dermatological Problems: No - MUSCULOSKELETAL/RHEUMATOLOGICAL Hx Falls: Yes (fell yesterday) - GASTROINTESTINAL Hx Gastrointestinal Disorders: Yes (CONSTIPATION (CHRONIC),BOWEL OBSTRUCTION,) - GENITOURINARY/GYNECOLOGICAL Hx Genitourinary Disorders: No - PSYCHIATRIC Hx Substance Use: No - SURGICAL HISTORY Hx Surgeries: Yes - ANESTHESIA Hx Anesthesia Reactions: No Hx Malignant Hyperthermia: No Meds Allergies/Adverse Reactions: Allergies Allergy/AdvReac Type Severity Reaction Status Date / Time No Known Allergies Allergy Verified 05/29/15 22:25 - Medications Medications: Current Medications Albuterol/Ipratropium (Duoneb 3 Mg/0.5 Mg (3 Ml) Ud) 3 ml IH [id number] [facility] Last Admin: 05/28/17 02:15 Dose: 3 ml Atenolol (Tenormin) 12.5 mg PO BID [facility] Last Admin: 05/27/17 18:32 Dose: 12.5 mg Atorvastatin Calcium (Lipitor) 40 mg PO DIN [facility] Last Admin: 05/27/17 18:33 Dose: 40 mg Cholecalciferol (Vitamin D) 2,000 iu PO DAILY [facility] Last Admin: 05/27/17 10:48 Dose: 2,000 iu Docusate Sodium (Colace) 100 mg PO TID [facility] Last Admin: 05/27/17 18:39 Dose: 100 mg Ergocalciferol (Drisdol 50,000 Intl Units Cap) 1 cap PO Q7D [facility] Last Admin: 05/22/17 20:07 Dose: 1 cap Finasteride (Proscar) 5 mg PO DAILY [facility] Last Admin: 05/27/17 10:45 Dose: 5 mg Folic Acid (Folic Acid) 1 mg PO DAILY [facility] Last Admin: 05/27/17 10:48 Dose: 1 mg Furosemide (Lasix) 20 mg IVP Q12 [facility] Gabapentin (Neurontin) 100 mg PO TID [facility] PRN Reason: Protocol Last Admin: 05/27/17 18:32 Dose: 100 mg Doxycycline Hyclate 100 mg/ (Sodium Chloride) 100 mls @ 100 mls/hr IVPB Q12 [facility] PRN Reason: Protocol Ceftriaxone Sodium (Rocephin 1 Gram Ivpb) 1 gm in 100 mls @ 100 mls/hr IVPB DAILY [facility] PRN Reason: Protocol Lidocaine (Lidoderm) 1 ea TD DAILY [facility] Last Admin: 05/27/17 10:49 Dose: 1 ea Lorazepam (Ativan) 0.5 mg PO HS PRN; Protocol PRN Reason: Anxiety Last Admin: 05/23/17 21:50 Dose: 0.5 mg Pantoprazole Sodium (Protonix Ec Tab) 40 mg PO ACBD [facility] Last Admin: 05/27/17 18:32 Dose: 40 mg Polyethylene Glycol (Miralax) 17 gm PO TID [facility] Last Admin: 05/27/17 18:34 Dose: Not Given Potassium Chloride (K-Dur 20 Meq Er Tab) 20 meq PO BID [facility] Pregabalin (Lyrica) 100 mg PO TID [facility] Last Admin: 05/27/17 18:32 Dose: 100 mg Simethicone (Mylicon Chew Tab) 80 mg PO [facility] PRN PRN Reason: GI distress Tamsulosin HCl (Flomax) 0.4 mg PO DAILY [facility] Last Admin: 05/27/17 10:49 Dose: 0.4 mg Tramadol HCl (Ultram) 50 mg PO BID [facility] Last Admin: 05/27/17 18:36 Dose: 50 mg Physical Exam - Constitutional Appears: Non-toxic, No Acute Distress - Head Exam Head Exam: NORMAL INSPECTION - ENT Exam ENT Exam: Mucous Membranes Moist - Neck Exam Neck exam: Negative for: Lymphadenopathy, Meningismus - Respiratory Exam Respiratory Exam: Decreased Breath Sounds (at the bases) - Cardiovascular Exam Cardiovascular Exam: +S1, +S2 - GI/Abdominal Exam GI & Abdominal Exam: Soft. absent: Tenderness Results - Vital Signs Recent Vital Signs: Last Vital Signs Temp 98.3 F 05/28/17 06:00 Pulse 72 05/28/17 06:00 Resp 19 05/28/17 06:00 BP 102/60 05/28/17 06:00 Pulse Ox 95 05/28/17 06:00 - Labs Result Diagrams: 05/28/17 04:30 05/28/17 04:30 Labs: Laboratory Results - last 24 hr 05/23/17 05/23/17 05/23/17 17:00 17:10 17:10 WBC RBC Hgb Hct MCV MCH MCHC RDW Plt Count MPV Gran % Lymph % (Auto) Perkins % (Auto) Eos % (Auto) Baso % (Auto) Gran # Lymph # Perkins # Eos # Baso # Thrombin Time 17 Lupus Anticoagulant see note H LA PTT Screen 48 H dRVVT Mixing Study 34 dRVVT Mix Interpret Not indicated Hexagonal Phase Confirm Weak positive H Protein C Antigen 96 Protein C Activity Protein S Antigen Antithrombin III Activ Factor V see note Sodium Potassium Chloride Carbon Dioxide Anion Gap BUN Creatinine Est GFR ( Amer) Est GFR (Non-Af Amer) Random Glucose Calcium Phosphorus Magnesium Total Bilirubin Direct Bilirubin AST ALT Alkaline Phosphatase Total Protein Albumin Globulin Albumin/Globulin Ratio Rheumatoid Factor KARYN Screen KARYN Titer KARYN Pattern Anti-ds DNA Titer (Crith) Anti-ds DNA (Crithidia) Actin IgG Antibody Reticulin Ab Titer Reticulin IgA Antibody Prothrombin Mut Interp Prothrombin Gene Mutate Prothromb Gene Review Blood Type Antibody Screen Crossmatch BBK History Checked 05/23/17 05/23/17 05/23/17 17:10 17:10 17:10 WBC RBC Hgb Hct MCV MCH MCHC RDW Plt Count MPV Gran % Lymph % (Auto) Perkins % (Auto) Eos % (Auto) Baso % (Auto) Gran # Lymph # Perkins # Eos # Baso # Thrombin Time Lupus Anticoagulant LA PTT Screen dRVVT Mixing Study dRVVT Mix Interpret Hexagonal Phase Confirm Weak positive H Protein C Antigen Protein C Activity Protein S Antigen Antithrombin III Activ Factor V Sodium Potassium Chloride Carbon Dioxide Anion Gap BUN Creatinine Est GFR ( Amer) Est GFR (Non-Af Amer) Random Glucose Calcium Phosphorus Magnesium Total Bilirubin Direct Bilirubin AST ALT Alkaline Phosphatase Total Protein Albumin Globulin Albumin/Globulin Ratio Rheumatoid Factor 11 KARYN Screen Positive H KARYN Titer 1:40 H KARYN Pattern Homogeneous Anti-ds DNA Titer (Crith) TNP Anti-ds DNA (Crithidia) Negative Actin IgG Antibody <20 Reticulin Ab Titer TNP Reticulin IgA Antibody Negative Prothrombin Mut Interp see note Prothrombin Gene Mutate see note Prothromb Gene Review see note Blood Type Antibody Screen Crossmatch BBK History Checked 05/23/17 05/23/17 05/23/17 17:10 17:10 17:10 WBC RBC Hgb Hct MCV MCH MCHC RDW Plt Count MPV Gran % Lymph % (Auto) Perkins % (Auto) Eos % (Auto) Baso % (Auto) Gran # Lymph # Perkins # Eos # Baso # Thrombin Time Lupus Anticoagulant LA PTT Screen dRVVT Mixing Study dRVVT Mix Interpret Hexagonal Phase Confirm Protein C Antigen Protein C Activity 87 Protein S Antigen 127 Antithrombin III Activ 115 Factor V Sodium Potassium Chloride Carbon Dioxide Anion Gap BUN Creatinine Est GFR ( Amer) Est GFR (Non-Af Amer) Random Glucose Calcium Phosphorus Magnesium Total Bilirubin Direct Bilirubin AST ALT Alkaline Phosphatase Total Protein Albumin Globulin Albumin/Globulin Ratio Rheumatoid Factor KARYN Screen KARYN Titer KARYN Pattern Anti-ds DNA Titer (Crith) Anti-ds DNA (Crithidia) Actin IgG Antibody Reticulin Ab Titer Reticulin IgA Antibody Prothrombin Mut Interp Prothrombin Gene Mutate Prothromb Gene Review Blood Type Antibody Screen Crossmatch BBK History Checked 05/26/17 05/27/17 05/28/17 08:30 22:50 04:30 WBC 7.5 D 6.1 RBC 4.46 4.29 Hgb 12.2 L 11.8 L Hct 36.3 L 35.3 L MCV 81.4 82.3 MCH 27.4 27.5 MCHC 33.6 33.4 RDW 14.8 H 15.1 H Plt Count 184 197 MPV 9.2 9.8 Gran % 80.8 H 71.3 H Lymph % (Auto) 8.4 L 17.0 L Perkins % (Auto) 8.4 H 9.2 H Eos % (Auto) 2.0 2.0 Baso % (Auto) 0.4 0.5 Gran # 6.05 4.37 Lymph # 0.6 L 1.0 L Perkins # 0.6 0.6 Eos # 0.2 0.1 Baso # 0.03 0.03 Thrombin Time Lupus Anticoagulant LA PTT Screen dRVVT Mixing Study dRVVT Mix Interpret Hexagonal Phase Confirm Protein C Antigen Protein C Activity Protein S Antigen Antithrombin III Activ Factor V Sodium Potassium Chloride Carbon Dioxide Anion Gap BUN Creatinine Est GFR ( Amer) Est GFR (Non-Af Amer) Random Glucose Calcium Phosphorus Magnesium Total Bilirubin Direct Bilirubin AST ALT Alkaline Phosphatase Total Protein Albumin Globulin Albumin/Globulin Ratio Rheumatoid Factor KARYN Screen KARYN Titer KARYN Pattern Anti-ds DNA Titer (Crith) Anti-ds DNA (Crithidia) Actin IgG Antibody Reticulin Ab Titer Reticulin IgA Antibody Prothrombin Mut Interp Prothrombin Gene Mutate Prothromb Gene Review Blood Type A POSITIVE Antibody Screen Negative Crossmatch See Detail BBK History Checked No verified bt 05/28/17 04:30 WBC RBC Hgb Hct MCV MCH MCHC RDW Plt Count MPV Gran % Lymph % (Auto) Perkins % (Auto) Eos % (Auto) Baso % (Auto) Gran # Lymph # Perkins # Eos # Baso # Thrombin Time Lupus Anticoagulant LA PTT Screen dRVVT Mixing Study dRVVT Mix Interpret Hexagonal Phase Confirm Protein C Antigen Protein C Activity Protein S Antigen Antithrombin III Activ Factor V Sodium 138 Potassium 3.8 Chloride 99 Carbon Dioxide 30 Anion Gap 13 BUN 16 Creatinine 0.9 Est GFR ( Amer) > 60 Est GFR (Non-Af Amer) > 60 Random Glucose 91 Calcium 8.2 L Phosphorus 4.2 Magnesium 2.4 H Total Bilirubin 0.9 Direct Bilirubin 0.3 AST 36 ALT 33 Alkaline Phosphatase 59 Total Protein 5.6 L Albumin 3.0 Globulin 2.6 Albumin/Globulin Ratio 1.2 Rheumatoid Factor KARYN Screen KARYN Titer KARYN Pattern Anti-ds DNA Titer (Crith) Anti-ds DNA (Crithidia) Actin IgG Antibody Reticulin Ab Titer Reticulin IgA Antibody Prothrombin Mut Interp Prothrombin Gene Mutate Prothromb Gene Review Blood Type Antibody Screen Crossmatch BBK History Checked Assessment & Plan - Assessment and Plan (Free Text) Plan: Assessment Rule out healthcare-associated pneumonia in this patient with bilateral pleural effusions spinal stenosis S/P laminectomy and decompression of L2-L5 Prostate CA S/P radiation therapy Plan patient was started on Rocephin and Doxycycline - will give a dose of IV Vancomycin and change Rocephin to Cefepime pending blood cx, PCT; reviewed CT scan of the abdomen and pelvis which showed bilateral pleural effusions with lower lobe consolidations will monitor clinically
--- NOTE | 2017-05-28 10:22 | PN ---
DATE: 05/28/2017 SUBJECTIVE: The patient still complains of abdominal discomfort. His abdomen is mildly distended. PHYSICAL EXAMINATION: VITAL SIGNS: Blood pressure is 104/60, the heart rate is in the 70s. NECK: Negative JVD. LUNGS: Decreased breath sounds. HEART: Reveal S1, S2. EXTREMITIES: Without change. LABORATORY: His hemoglobin is 11.8. Chemistries are essentially unchanged. CT scan of the abdomen reveals bilateral pleural effusions with few hepatic cysts noted. IMPRESSION: 1. Deep venous thrombosis. 2. Status post filter placed. 3. Anemia. 4. Abdominal discomfort with distention. PLAN: The patient may benefit from GI consult to evaluate his belly pain. Patrick Salmon MD
[2017-05-28] MEDS: Simethicone 80 mg Chewtab PO SCH ×3 (12:12→21:20)
--- NOTE | 2017-05-28 13:24 | PN ---
DATE: 05/28/2017 SUBJECTIVE: The patient is seen lying in the bed, in room 262, bed 1. The patient has refused to be out of bed to chair. The patient has also refused physical therapy 2 days ago. Overnight nurse's notes were reviewed. The patient has refused MiraLax. The patient has been refusing medicines. The patient refused enema. PHYSICAL EXAMINATION: VITAL SIGNS: T-max is 98.4. Telemetry shows sinus rhythm. Heart rate averaging in 70s. Blood pressure 124/63, 120/60, 116/64; respirations 19; O2 saturations 95%-98%. OUTPUT: 300. HEAD: Normocephalic and atraumatic. HEENT: Shows pinkish conjunctivae, anicteric sclerae. No oropharyngeal lesion. NECK: No neck rigidity. CHEST: Kyphosis. LUNGS: Shows crackles, decreased breath sounds at the bases. Rhonchi bilaterally. CARDIOVASCULAR: S1, S2, regular rhythm. ABDOMEN: Protuberant. Positive but decreased bowel sound. GENITALIA: Male. RECTAL: Deferred. EXTREMITIES: Shows positive pitting edema of the left lower extremity more than the right lower extremity. Positive calf tenderness, left more than the right. MUSCULOSKELETAL: Shows a body mass index of 25. Gait examination could not be tested. The patient is also refusing to be out of bed to chair. DIAGNOSTIC DATA: 05/28: WBC is 3.1, hemoglobin and hematocrit 11.8 and 35.3, platelet 197, granulocyte 71% segs. The patient's lupus anticoagulant is positive. Sodium 138, potassium 3.8, chloride 99, CO2 30, anion gap 13, BUN 16, creatinine 1.9, GFR greater than 60, glucose 91, calcium 8.2, phosphorus 4.2, magnesium 2.4. LFTs are normal. The patient's repeat KARYN came back positive with a titer of 1:40 homogenous. Prothrombin [id number] mutation is negative. The patient had a repeat CAT scan done again last night ordered by Dr. Montemayor for abdominal pain. The patient underwent placement of the IVC filter. The patient received 2 units of PRBC. IMPRESSION: 1. Poor compliance and non compliance. 2. Status post inferior vena cava filter placement. 3. Bilateral pleural effusion, bibasilar atelectasis, and pneumonia with consolidation and air bronchograms left more than the right. 4. Hiatal hernia. 5. Possible hepatic cyst with calcification. 6. Status post cholecystectomy. 7. Left-sided rib fracture. 8. Lumbar spine compression fracture. 9. Status post Inferior vena cava filter placement, infrarenal at L2, L3. 10. Acute left external iliac vein and common femoral vein thrombosis. 11. Left common femoral vein and left external iliac vein acute thrombosis. 12. Paroxysmal atrial fibrillation(resolved). 13. Gait dysfunction. 14. Questionable function quadriplegia. 15. Normocytic anemia. 16. Granulocytosis. 17. Possible lupus anticoagulant. 18. Hypernatremia. 19. Hypokalemia. 20. Prerenal kidney injury. 21. Transient hypophosphatemia. 22. Iron deficiency. 23. Elevated C-reactive protein. 24. Homocystinemia. 25. Low titer positive KARYN with homogenous pattern, 1:40. 26. Status post packed red blood cell transfusion x2. 27. Left anterior hemiblock block. 28. Fecal retention, fecal stasis and attempted colonoscopy with poor preparation. 29. Status post esophagogastroduodenoscopy with non-bleeding superficial lower third esophageal ulcer 15 mm. 30. Clint grade D esophagitis without bleeding in the lower third of the esophagus with 1 or more mucosal breaks involving at least 75% of the esophageal circumflex. 31. Gastritis. 32. Possible health care associated bibasilar atelectasis pneumonia and pleural effusion. 1. Acute blood loss anemia with decreasing hemoglobin and hematocrit, etiology undetermined. 2. Probably provoked left lower extremity hypoechoic acute occlusive thrombus of the left common femoral vein and left femoral vein. 3. Recurrent fall and gait dysfunction. 4. Chronic idiopathic constipation. 5. History of hypertension. 6. Paroxysmal atrial fibrillation converted to normal sinus rhythm. 7. Granulocytosis. 8. Elevated erythrocyte sedimentation rate. 9. Weakly positive lupus anticoagulant. 10. Hypokalemia. 11. Transient hyponatremia. 12. Prerenal kidney injury. 13. Hyperphosphatemia and hypermagnesemia. 14. Protein malnutrition and hyponatremia. 15. Iron deficiency. 16. Mild homocysteinemia. 17. Bilateral pleural effusion and bibasilar atelectasis with possible left lower lobe pneumonia. 18. Hepatic cyst. 19. Status post cholecystectomy. 20. Urinary bladder distention. 21. Prostatomegaly. 22. L2, L3, and T12 compression fracture. 23. Questionable gastroparesis with retained food particles in the gastric fundus. 24. History of spinal stenosis. 25. Chronic idiopathic constipation. 26. Left anterior hemiblock. 27. Status post esophagogastroduodenoscopy. 28. Nonbleeding superficial esophageal ulcer in the lower third of esophagus. 29. Clint grade D esophagitis without bleeding with 1 or more mucosal breaks involving at least 75% of the esophageal circumference. 30. Gastritis. 31. Hiatal hernia. 32. Status post attempted colonoscopy with poor colonoscopy prep and fecal retention. 33. Deconditioning. 34. Left ventricular ejection fraction of 55% with mild pulmonary arterial hypertension with right ventricular systolic pressure of 44 mmHg. 35. Left ventricular hypertensive cardiovascular disease. 36. Mild aortic regurgitation, trace mitral regurgitation, and trace to mild tricuspid regurgitation. 1. Questionable provoked versus unprovoked left lower extremity deep venous thrombosis of the left common femoral vein and left femoral vein with hypoechoic acute occlusive thrombus. 2. Anemia with decreasing hemoglobin and hematocrit. 3. Paroxysmal atrial fibrillation (resolved). 4. Bibasilar atelectasis and bilateral upper lobe atelectasis. 5. A 3.9 cm ascending aortic dilatation. 6. Bilateral small pleural effusion. 7. Large hiatal hernia. 8. Multilevel thoracic spondylosis. 9. T12 severe compression fracture and mild compression fracture of L2-L3 with anterior wedging of indeterminate age. 10. Right hepatic lobe cyst. 11. Cholecystectomy. 12. Prostatomegaly. 13. Left ventricular ejection fraction of 55%. 14. Pulmonary arterial hypertension with right ventricular systolic pressure of 44 mmHg. 15. Left ventricular hypertrophy. 16. Mild aortic and trace mitral regurgitation and mild tricuspid regurgitation. 17. Gait dysfunction. 18. Recurrent falls. 19. Left anterior hemiblock. 20. Paroxysmal atrial fibrillation with left anterior hemiblock with rapid ventricular response (resolved). 21. Chronic idiopathic constipation. 22. Elevated erythrocyte sedimentation rate. 23. Hyponatremia. 24. Hypokalemia. 25. Prerenal kidney injury. 26. Hyperphosphatemia. 27. Mild hypoalbuminemia and protein malnutrition. 28. Hypovitaminosis D. 29. Mild hyperhomocysteinemia. 30. A+ blood type. 31. History of anxiety. 32. Constipation. 33. Prostate carcinoma and prostate hypertrophy. 34. History of iron deficiency. 35. History of dyslipidemia. 36. History of neuropathy. 1. Acute probably unprovoked left lower extremity deep venous thrombosis of the left common femoral vein and left femoral vein, occlusive hypoechoic thrombus, probably unprovoked. 2. Transient hypotension, probably secondary to diuretics. 3. Bilateral lower extremity venous stasis (resolved). 4. Normocytic anemia. 5. Granulocytosis. 6. Elevated erythrocyte sedimentation rate of 40. 7. Prerenal kidney injury. 8. Hyperglycemia. 9. Hyperphosphatemia. 10. Iron deficiency. 11. Hypervitaminosis D. 12. Hypercholesterolemia with elevated LDL. 13. Bibasilar atelectasis and bilateral upper lobe atelectasis. 14. A 3.9-cm ascending thoracic aorta. 15. Bilateral small and minimal pleural effusion. 16. [id number] T12 compression fracture with mild compression fracture of L2-L3 with anterior wedging with indeterminate age. 17. Right hepatic lobe 1.5-cm hepatic cyst. 18. Fecal stasis and constipation. 19. Cholecystectomy. 20. Prostatomegaly with history of prostate carcinoma. 21. Large hiatal hernia. 22. 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 23. History of prostate carcinoma, status post radiation therapy. 24. Fecal retention. 25. Chronic idiopathic constipation. 26. Iron deficiency. 27. History of anxiety. 28. Hypovitaminosis D. 29. Prostatic hypertrophy. 30. Dyslipidemia. 31. Neuropathy. 1. Left lower extremity, possibly unprovoked deep venous thrombosis. 2. 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 3. History of hypertension. 4. History of questionable type 2 diabetes mellitus. 5. History of chronic constipation. 6. History of cholecystectomy. 7. History of degenerative joint disease of the lumbar spine with laminectomy. 8. History of T12 compression fracture. 9. History of gait dysfunction. 10. History of prostate carcinoma with history of radiation treatment. 11. Past medical history is also significant for chronic constipation, history of hypovitaminosis D, history of prostatic hypertrophy, history of dyslipidemia, and history of neuropathy. 12. Mild normocytic anemia with granulocytosis. 13. 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 14. Left common femoral vein and left femoral vein occlusive hypoechoic thrombus, probably unprovoked. 15. Status post fall with gait dysfunction. 16. 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 17. 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 18. Prominent left ring cisterna magna. 19. Left ribcage and hip and pelvic contusion secondary to fall. 20. Bibasilar atelectasis. 21. Cardiomegaly. 22. Cholecystectomy. 23. Degenerative joint disease of the thoracic and lumbar spine with dextroscoliosis of the thoracolumbar spine. 24. Bilateral hip joint narrowing. 25. Lumbar spine degenerative spondylosis. 26. Degenerative joint disease of the hips. 27. History of constipation with bowel diagnosis. 28. History of prostate carcinoma. 29. Degenerative joint disease with compression of the lumbar spine. 30. History of severe gait dysfunction and recurrent fall. 31. 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 32. Bilateral lower extremity weakness. 33. Severe lumbar spinal stenosis. 34. L2-L5 decompressive laminectomy. 35. T12 compression fracture. 36. Lumbar spine degenerative disk disease, disk bulging, and spinal stenosis. 37. Vitamin B12 deficiency. 38. History of prostatic hypertrophy. 39. Insomnia. 40. Anxiety disorder. 41. Atelectasis. 42. Multilevel lumbar spine degenerative disk disease and T12 compression fracture in 2014. 43. History of left lower extremity weakness with left footdrop. 44. L2-L5 decompression lumbar laminectomy. 45. Vitamin B12 and folate deficiency. 46. Aortic valve sclerosis. PLAN: At this time, the patient has been ordered serial labs. The patient has been encouraged to be out of bed to chair. The patient is encouraged to participate in physical therapy. The patient has been ordered repeat labs. Blood cultures were ordered. Consultation: Cardiology, hematology, oncology, infectious disease, intervention, radiology. The patient has been ordered Legionella urine titer and procalcitonin level. CURRENT MEDICATIONS: The patient is started on DuoNeb nebulizer with Mucomyst nebulizer every 6 hours. Ativan 0.5 mg at bedtime and p.r.n. The patient has received magnesium citrate , Colace 100 mg 3 times a day, Vibramycin 100 mg IV every 12 hours, 50,000 weekly. The patient refused fleet enema yesterday, Flomax 0.4 daily, folic acid 1 mg daily. The patient is started on K-Dur 20 twice a day, Lasix 20 IV every 12, Lidoderm 5% patch to the affected area. The patient has been ordered a Lovenox dose 80 mg subcu x1. We will wait for hematology recommendation regarding recommendations for anticoagulation. The patient is on Lyrica 100 mg 3 times a day, MiraLax 17 g 3 times a day, simethicone 80 mg before meals and bedtime, Neurontin 100 mg 3 times a day, Proscar 5 mg daily, Protonix 40 mg daily. The patient has been ordered Relistor 8 mg subcu once. The patient is started on Rocephin 1 g IV daily, Tenormin 12.5 twice a day, Ultram 50 mg twice a day, vitamin D3 2000 units daily, spirometry q. 12 hours, heart-healthy diet, out of bed, ДМИТРИЙ stockings, SCDs, physical therapy, occupational therapy ordered. The patient will be ordered stool occult blood. Again, it was never done from the initial orders. At present, the patient is to be continued on above therapeutic intervention. We will await further recommendation by infectious disease regarding IV antibiotic choice and duration. We are awaiting evaluation by hematology/oncology regarding decisions about anticoagulation. As according to intervention radiology, the patient has extensive DVT. The patient has been updated about his condition, diagnoses, test results, and treatment and recommendation in layman's language which he acknowledged understood, the patient promised to comply. The patient has been advised to comply with physician and nurses recommendation, which he agrees to. DICTATED AND ELECTRONICALLY SIGNED NOT READ. Kian Smith MD MTDDomingo
[2017-05-28] MEDS: Cefepime 1gm in NS 100ml 1 GM/100 ML BAG IVPB SCH ×2 (14:57→21:20)
[2017-05-29] MEDS: Acetylcysteine 20% Inhal Soln (4ml) IH SCH ×3 (01:32→13:57)
[2017-05-29] MEDS: Albuterol-Ipratrop 3 mg / 0.5 (3 ml) UD IH SCH ×3 (01:32→13:57)
--- NOTE | 2017-05-29 03:24 | CON ---
DATE: 05/28/2017 REASON FOR CONSULTATION: Pulmonary embolus and DVT. HISTORY OF PRESENT ILLNESS: The patient is an 81-year-old male with past medical history significant for multiple medical problems including atrial fibrillation, hypertension, and hyperlipidemia, who was admitted with worsening shortness of breath as well as left lower extremity swelling. He states his symptoms started approximately one week prior. He also had some weight loss over 20 pounds in the last six months. His appetite has also been very poor. He also has a known history of diabetes, spinal stenosis. He had studies done on admission which shows acute thrombus of the left femoral and common femoral veins. He has been on Lovenox, but subsequently, he developed some rectal bleeding and Lovenox was stopped. The patient has had an IVC filter placed and now is on lower doses of Lovenox once a day. He also has some constipation, but denies any nausea, vomiting, melena, or hematochezia. He has had multiple screening colonoscopies in the past with history of polyps, but no other complications in the past. PAST MEDICAL HISTORY: As above as per HPI. PAST SURGICAL HISTORY: Positive for decompressive laminectomy L2 to 5 and history of cholecystectomy. SOCIAL HISTORY: Negative for any tobacco use. No alcohol use or any illicit drug use. FAMILY HISTORY: Noncontributory. REVIEW OF SYSTEMS: As per the HPI. PHYSICAL EXAMINATION VITAL SIGNS: Reveal temperature of 98.2, pulse of 67, respiratory rate of 20, and blood pressure of 108/54. GENERAL: The patient is an elderly thin-appearing male, lying in bed, in no acute distress. HEENT: Head is normocephalic and atraumatic. Eyes, pupils are round and reactive to light and accommodation. Extraocular muscles are intact. There is some pallor. No icterus is noted. NECK: Supple with no adenopathy. No JVD. No thyromegaly. LUNGS: Decreased breath sounds bilaterally at the bases, most likely secondary to poor effort. CARDIOVASCULAR: S1 and S2 are heard. ABDOMEN: Positive bowel sounds, soft, nontender, and nondistended. No organomegaly is palpated. EXTREMITIES: There is left lower extremity edema as well as tenderness on palpation. Otherwise, no clubbing or cyanosis. LABORATORY DATA: Reveal a white count of 6.1, hemoglobin of 11.8, hematocrit of 35.3, MCV of 82.3, and a platelet count of 197. He is status post 2 units of PRBC. His hemoglobin had dipped down to 8.9. Chemistries are within normal limits. Iron studies, which were also done upon this admission confirm iron deficiency. His homocystine level is also high. B12 is also on the low side. He also has had CT scans of the abdomen and pelvis done upon this admission which shows bilateral pleural effusions with bibasilar atelectasis, possible pneumonia, but otherwise, there is no indication of any gross mass lesions. His lab work and CT scans all have been reviewed. ASSESSMENT AND PLAN: Elderly male with weight loss, new deep vein thrombosis, *------*occult malignancy. He is currently awaiting gastrointestinal workup. He also has recent loss of blood and acute anemia which he is now status post packed red blood cell transfusion, the etiology is still undetermined. Continue current anticoagulation. We will await gastrointestinal workup prior to any further intervention. He will soon need anticoagulation despite the fact that he has had a inferior vena cava filter placed. Thank you for the consult. We will follow. John Geronimo MD
[2017-05-29] MEDS: Cefepime 1gm in NS 100ml 1 GM/100 ML BAG IVPB SCH (05:33)
[2017-05-29 06:03] VITALS: RESP 20; O2SAT 96
[2017-05-29 06:23] LABS: BASO # 0.02 K/mm3 (0.0-2.0); BASO % 0.3 % (0.0-3.0); EOS # 0.3 (0.0-0.7); EOS % 4.2 % (1.5-5.0); GRAN # 4.49 (1.4-6.5); GRAN % 67.5 % (50.0-68.0); HEMOGLOBIN 11.7 gm/dL (14.0-18.0); LYMPH # 1.2 (1.2-3.4); LYMPH % 17.9 % (22.0-35.0); MEAN CELL VOLUME 81.9 fL (80.0-105.0); MEAN CORPUSCULAR HEMOGLOBIN 27.5 pg (25.0-35.0); MEAN CORPUSCULAR HGB CONC 33.5 g/dl (31.0-37.0); MEAN PLATELET VOLUME 9.8 fl (7.0-11.0); MONO # 0.7 (0.1-0.6); MONO % 10.1 % (1.0-6.0); PLATELET COUNT 207 10^3/uL (120.0-450.0); RBC 4.26 10^6/uL (3.5-6.1); RED CELL DISTRIBUTION WIDTH 15.6 % (11.5-14.5); WHITE BLOOD COUNT 6.7 10^3/ul (4.5-11.0)
[2017-05-29] MEDS ORDERED: Enoxaparin 80 mg Syringe SC ONE (07:08)
[2017-05-29 07:13] LABS: ALB/GLOB RATIO 1.2 (1.1-1.8); ALBUMIN 2.7 g/dL (3.0-4.8); ALT/SGPT 36 U/L (7-56); AST/SGOT 32 U/L (15-59); BILIRUBIN,DIRECT 0.4 mg/dL (0.0-0.4); BLOOD UREA NITROGEN 20 mg/dL (7-21); CALCIUM 8.1 mg/dL (8.4-10.5); GFR AFRICAN-AMERICAN > 60; GFR NON-AFRICAN AMERICAN > 60
--- NOTE | 2017-05-29 07:14 | CP.PCM.PN ---
Subjective - Date & Time of Evaluation Date of Evaluation: 05/29/17 Time of Evaluation: 07:11 - Subjective Subjective: Medicine Progress Note Patient seen and examined at bedside. There were no acute overnight events. Patient has been refusing some medications and physical therapy. He reports he wont get out of bed because "he is sick". He denies CP, SOB, n/v/d, numbness/ tingling, fever, chills, cough or pain. He has been having BM and passing gas. Objective - Vital Signs/Intake and Output Vital Signs (last 24 hours): Temp Pulse Resp BP Pulse Ox 98.2 F 67 20 110/58 L 96 05/29/17 06:00 05/29/17 06:00 05/29/17 06:00 05/29/17 06:00 05/29/17 06:00 Intake and Output: 05/29/17 05/29/17 06:59 18:59 Intake Total 356 Output Total 300 Balance 56 - Medications Medications: Current Medications Acetylcysteine (Acetylcysteine 20%) 4 ml IH [id number] [facility] Last Admin: 05/29/17 01:32 Dose: 4 ml Albuterol/Ipratropium (Duoneb 3 Mg/0.5 Mg (3 Ml) Ud) 3 ml IH [id number] [facility] Last Admin: 05/29/17 01:32 Dose: 3 ml Atenolol (Tenormin) 12.5 mg PO BID [facility] Last Admin: 05/28/17 18:55 Dose: 12.5 mg Atorvastatin Calcium (Lipitor) 40 mg PO DIN [facility] Last Admin: 05/28/17 17:56 Dose: 40 mg Cholecalciferol (Vitamin D) 2,000 iu PO DAILY [facility] Last Admin: 05/28/17 09:11 Dose: 2,000 iu Docusate Sodium (Colace) 100 mg PO TID [facility] Last Admin: 05/28/17 17:55 Dose: 100 mg Enoxaparin Sodium (Lovenox) 70 mg SC Q24H ONE PRN Reason: Protocol Stop: 05/29/17 07:09 Ergocalciferol (Drisdol 50,000 Intl Units Cap) 1 cap PO Q7D [facility] Last Admin: 05/22/17 20:07 Dose: 1 cap Finasteride (Proscar) 5 mg PO DAILY [facility] Last Admin: 05/28/17 09:11 Dose: 5 mg Folic Acid (Folic Acid) 1 mg PO DAILY [facility] Last Admin: 05/28/17 09:12 Dose: 1 mg Furosemide (Lasix) 20 mg IVP Q12 [facility] Last Admin: 05/28/17 21:20 Dose: 20 mg Gabapentin (Neurontin) 100 mg PO TID [facility] PRN Reason: Protocol Last Admin: 05/28/17 17:55 Dose: 100 mg Doxycycline Hyclate 100 mg/ (Sodium Chloride) 100 mls @ 100 mls/hr IVPB Q12 [facility] PRN Reason: Protocol Last Admin: 05/28/17 21:21 Dose: 100 mls/hr Cefepime HCl (Maxipime 1gm) 1 gm in 100 mls @ 100 mls/hr IVPB Q8 [facility] PRN Reason: Protocol Stop: 06/04/17 14:01 Last Admin: 05/29/17 05:33 Dose: 100 mls/hr Lidocaine (Lidoderm) 1 ea TD DAILY [facility] Last Admin: 05/28/17 09:41 Dose: 1 ea Lorazepam (Ativan) 0.5 mg PO HS PRN; Protocol PRN Reason: Anxiety Last Admin: 05/28/17 21:32 Dose: 0.5 mg Pantoprazole Sodium (Protonix Ec Tab) 40 mg PO ACBD [facility] Last Admin: 05/28/17 17:56 Dose: 40 mg Polyethylene Glycol (Miralax) 17 gm PO TID [facility] Last Admin: 05/28/17 18:19 Dose: Not Given Potassium Chloride (K-Dur 20 Meq Er Tab) 20 meq PO BID [facility] Last Admin: 05/28/17 17:59 Dose: 20 meq Simethicone (Mylicon Chew Tab) 80 mg PO PCHS [facility] Last Admin: 05/28/17 21:20 Dose: 80 mg Tamsulosin HCl (Flomax) 0.4 mg PO DAILY [facility] Last Admin: 05/28/17 09:12 Dose: 0.4 mg - Labs Labs: 05/29/17 05:20 05/28/17 04:30 PT 10.7 Seconds (9.9-11.8) 05/23/17 17:10 INR 0.99 (0.93-1.08) 05/23/17 17:10 APTT 32.8 Seconds (23.7-30.8) H 05/23/17 17:10 - Constitutional Appears: No Acute Distress - Head Exam Head Exam: ATRAUMATIC, NORMAL INSPECTION, NORMOCEPHALIC - Eye Exam Eye Exam: Normal appearance, PERRL Pupil Exam: NORMAL ACCOMODATION, PERRL - ENT Exam ENT Exam: Mucous Membranes Moist - Respiratory Exam Respiratory Exam: Clear to Ausculation Bilateral, NORMAL BREATHING PATTERN. absent: Rales, Rhonchi, Wheezes - Cardiovascular Exam Cardiovascular Exam: REGULAR RHYTHM, +S1, +S2. absent: Gallop, Rubs, Murmur - GI/Abdominal Exam GI & Abdominal Exam: Distended, Soft, Normal Bowel Sounds. absent: Rigid, Tenderness, Mass, Rebound - Extremities Exam Extremities Exam: Pedal Edema. absent: Calf Tenderness - Neurological Exam Neurological Exam: Alert, Awake, CN II-XII Intact, Oriented x3 - Psychiatric Exam Psychiatric exam: Normal Affect, Normal Mood - Skin Skin Exam: Dry, Intact, Normal Color, Warm Assessment and Plan - Assessment and Plan (Free Text) Assessment: This is a 81Y M with PMH DM, HTN, Vit D def, spinal stenosis, prostate cancer s/ p radiation, chronic idiopathic constipation admitted for L leg DVT who is also found to have anemia and possible HCAP. Plan: 1. L leg DVT - secondary to decreased ambulation v malignancy v. hypercoag state - Pt has extensive DVT - Lovenox 70mg SC daily - IVC filter in place - Heme consulted- stated to continue anticoagulation and will need anticoagulation at home - Pt will need outpatient colonoscopy to r/o malignancy 2. Anemia- stable - Hgb 11.7 s/p 2U PRBC - Continue Folic acid - Hep ab negative - Heme consulted - recs appreciated 3. HCAP v. pleural effusion v. atelectasis - Afebrile, no leukocytosis - Cefepime and Doxy - ID Consulted- recs appreciated - Lasix 20q12 with K-Dur 20meq BID - Duoneb, N-Acetylcysteine - Lactic acid and procal negative 4. BPH with Hx of Prostate cancer s/p radiation - Continue Proscar and Flomax 5. Transient A.fib with RVR- resolved - Continue Atenolol - Cardiology consulted- recs appreciated 6. HTN - Atenolol 7. Hx of dyslipidemia - Lipitor 8. Hx of chronic idiopathic diarrhea - Continue Miralax, Colace and Simethicone - GI consulted- recs appreciated - signed off 9. Hx of Spinal stenosis - Continue Gabapentin - Tramadol, Lidoderm cream 10. Hx of anxiety - Ativan prn 11. Vit D deficiency - Continue Vit D and Drisdol GI ppx: Protonix DVT ppx: LVX, SCDs and has IVC filter Dispo: Pt accepted to [facility]. Will be transferred once medically stable. Case seen, reviewed and discussed with Dr. Sarah Dotson PGY2
[2017-05-29] MEDS: Simethicone 80 mg Chewtab PO SCH (08:06)
[2017-05-29] MEDS: Pantoprazole 40 mg EC Tab PO SCH (08:06)
--- NOTE | 2017-05-29 09:56 | CP.PCM.DIS ---
Provider - Provider Date of Admission: 05/22/17 16:35 Attending physician: Kian Smith MD Primary care physician: Kian Smith MD Consults: Cardio: Dr. Salmon Heme: Dr. Geronimo GI: Dr. Haddad ID: Dr. Aj IR: Dr. Luong Time Spent in preparation of Discharge (in minutes): 35 Hospital Course - Lab Results Lab Results: Micro Results 05/28/17 06:40 Blood-Venous Blood Culture - Preliminary NO GROWTH AFTER 24 HOURS 05/28/17 07:00 Blood-Venous Blood Culture - Preliminary NO GROWTH AFTER 24 HOURS Most Recent Lab Values WBC 6.7 10^3/ul (4.5-11.0) 05/29/17 05:20 RBC 4.26 10^6/uL (3.5-6.1) 05/29/17 05:20 Hgb 11.7 gm/dL (14.0-18.0) L 05/29/17 05:20 Hct 34.9 % (42.0-52.0) L 05/29/17 05:20 MCV 81.9 fL (80.0-105.0) 05/29/17 05:20 MCH 27.5 pg (25.0-35.0) 05/29/17 05:20 MCHC 33.5 g/dl (31.0-37.0) 05/29/17 05:20 RDW 15.6 % (11.5-14.5) H 05/29/17 05:20 Plt Count 207 10^3/uL (120.0-450.0) 05/29/17 05:20 MPV 9.8 fl (7.0-11.0) 05/29/17 05:20 Gran % 67.5 % (50.0-68.0) 05/29/17 05:20 Lymph % (Auto) 17.9 % (22.0-35.0) L 05/29/17 05:20 Converse % (Auto) 10.1 % (1.0-6.0) H 05/29/17 05:20 Eos % (Auto) 4.2 % (1.5-5.0) 05/29/17 05:20 Baso % (Auto) 0.3 % (0.0-3.0) 05/29/17 05:20 Gran # 4.49 (1.4-6.5) 05/29/17 05:20 Lymph # 1.2 (1.2-3.4) 05/29/17 05:20 Converse # 0.7 (0.1-0.6) H 05/29/17 05:20 Eos # 0.3 (0.0-0.7) 05/29/17 05:20 Baso # 0.02 K/mm3 (0.0-2.0) 05/29/17 05:20 ESR 40 mm/hr (0.00-15.0) H 05/23/17 17:10 Retic Count 1.39 % (0.5-1.5) 05/23/17 17:10 PT 10.7 Seconds (9.9-11.8) 05/23/17 17:10 INR 0.99 (0.93-1.08) 05/23/17 17:10 APTT 32.8 Seconds (23.7-30.8) H 05/23/17 17:10 Thrombin Time 17 sec (13-19) 05/23/17 17:10 Lupus Anticoagulant see note H 05/23/17 17:10 LA PTT Screen 48 sec (<=40) H 05/23/17 17:10 dRVVT Mixing Study 34 sec (<=45) 05/23/17 17:10 dRVVT Mix Interpret Not indicated 05/23/17 17:10 Hexagonal Phase Confirm Weak positive (Negative) H 05/23/17 17:10 Protein C Antigen 96 % (70-140) 05/23/17 17:00 Protein C Activity 87 % (70-180) 05/23/17 17:10 APC Resistance 3.8 ratio (>=2.1) 05/23/17 17:10 Protein S Activity 106 % (70-150) 05/23/17 17:10 Protein S Antigen 127 % (70-140) 05/23/17 17:10 Antithrombin III Activ 115 % activity (80-120) 05/23/17 17:10 Factor V see note 05/23/17 17:10 Sodium 133 mmol/L (132-148) 05/29/17 05:20 Potassium 3.6 mmol/L (3.6-5.0) 05/29/17 05:20 Chloride 97 mmol/L (98-107) L 05/29/17 05:20 Carbon Dioxide 28 mmol/L (21-33) 05/29/17 05:20 Anion Gap 12 (10-20) 05/29/17 05:20 BUN 20 mg/dL (7-21) 05/29/17 05:20 Creatinine 0.8 mg/dL (0.5-1.4) 05/29/17 05:20 Est GFR ( Amer) > 60 05/29/17 05:20 Est GFR (Non-Af Amer) > 60 05/29/17 05:20 POC Glucose (mg/dL) 130 mg/dL (65-110) H 05/29/17 08:00 Random Glucose 96 mg/dL (70-110) 05/29/17 05:20 Hemoglobin A1c 5.3 % (4.2-6.5) 05/25/17 11:43 Lactic Acid 1.3 mmol/L (0.7-2.1) 05/28/17 Unknown Uric Acid 5.2 mg/dL (3.5-8.5) 05/23/17 17:10 Calcium 8.1 mg/dL (8.4-10.5) L 05/29/17 05:20 Phosphorus 3.8 mg/dL (2.5-4.5) 05/29/17 05:20 Magnesium 2.0 mg/dL (1.7-2.2) 05/29/17 05:20 Iron 32 ug/dL (45-180) L 05/23/17 17:10 TIBC 296 ug/dL (261-462) 05/23/17 17:10 % Saturation 11 % (20-55) L 05/23/17 17:10 Transferrin 219.20 mg/dL (206-381) 05/23/17 17:10 Erythropoietin 35.0 mIU/mL (2.6-18.5) H 05/23/17 17:10 Ferritin 70.0 ng/mL 05/23/17 17:10 Total Bilirubin 0.9 mg/dL (0.2-1.3) 05/29/17 05:20 Direct Bilirubin 0.4 mg/dL (0.0-0.4) 05/29/17 05:20 AST 32 U/L (15-59) 05/29/17 05:20 ALT 36 U/L (7-56) 05/29/17 05:20 Alkaline Phosphatase 54 U/L (38-133) 05/29/17 05:20 Total Creatine Kinase 26 U/L (35-230) L 05/26/17 05:20 Troponin I < 0.01 ng/mL 05/26/17 05:20 C-Reactive Prot, Quant 6.2 mg/dL (<0.8) H 05/23/17 17:10 Total Protein 5.0 g/dL (5.8-8.3) L 05/29/17 05:20 Albumin 2.7 g/dL (3.0-4.8) L 05/29/17 05:20 Globulin 2.2 gm/dL 05/29/17 05:20 Albumin/Globulin Ratio 1.2 (1.1-1.8) 05/29/17 05:20 Triglycerides 120 mg/dL (35-160) 05/23/17 17:10 Cholesterol 186 mg/dL (130-200) 05/23/17 17:10 LDL Cholesterol Direct 127 mg/dL (0-129) 05/23/17 17:10 HDL Cholesterol 35 mg/dL (29-60) 05/23/17 17:10 Prostate Specific Ag < 0.1 ng/mL (0.00-2.5) 05/23/17 17:10 UF Heparin Interp Negative (Negative) 05/26/17 09:00 Vitamin B12 380 pg/mL (239-931) 05/23/17 17:10 25-OH Vitamin D Total 18.1 NG/ML (30.0-100.0) L 05/23/17 17:10 Folate > 20.0 ng/mL 05/23/17 17:10 Homocysteine 11.8 umol/L ( <11.4) H 05/23/17 17:10 Procalcitonin 0.06 NG/ML (0.19-0.49) L 05/28/17 07:00 Free T4 1.38 ng/dL (0.78-2.19) 05/23/17 17:10 Thyroxine (T4) 7.9 ug/dL (5.5-11.0) 05/23/17 17:10 TSH 3rd Generation 3.91 mIU/mL (0.46-4.68) 05/23/17 17:10 Rheumatoid Factor 11 IU/mL (<14) 05/23/17 17:10 Rheumatoid Factor IgG <5 U (<=6) 05/23/17 17:10 Rheumatoid Factor IgA <5 U (<=6) 05/23/17 17:10 Rheumatoid Factor IgM <5 U (<=6) 05/23/17 17:10 KARYN Screen Positive (NEGATIVE) H 05/23/17 17:10 KARYN Titer 1:40 titer H 05/23/17 17:10 KARYN Titer 2 TEST NOT PERFORMED 05/23/17 17:10 KARYN Pattern Homogeneous 05/23/17 17:10 KARYN Pattern 2 TEST NOT PERFORMED 05/23/17 17:10 Anti-ds DNA Titer (Crith) TNP 05/23/17 17:10 Anti-ds DNA (Crithidia) Negative (NEGATIVE) 05/23/17 17:10 [id number] Ab 18 BHARTI (<=20) 05/23/17 17:10 Beta-2 GPI IgG Ab <9 SGU (<=20) 05/23/17 17:10 Beta-2 GPI IgM Ab <9 SMU (<=20) 05/23/17 17:10 Actin IgG Antibody <20 U 05/23/17 17:10 Striated Muscle Ab Negative (NEGATIVE) 05/23/17 17:10 Myocardial Ab Titer TNP 05/23/17 17:10 Anti-Myocardial Ab Negative (NEGATIVE) 05/23/17 17:10 Reticulin Ab Titer TNP 05/23/17 17:10 Reticulin IgA Antibody Negative (NEGATIVE) 05/23/17 17:10 Thyroperoxidase Ab 1 IU/mL (<9) 05/23/17 17:10 Anti-Parietal Cell Ab <20.0 U 05/23/17 17:10 Heparin-induced Plt Ab Negative (Negative) 05/26/17 09:00 JORDAN UFH Low Dose 0.1 0 % Release 05/26/17 09:00 JORDAN UFH Low Dose 0.5 0 % Release 05/26/17 09:00 JORDAN UFH High Dose 100 0 % Release 05/26/17 09:00 Phosphatidylserine IgG <10 U/mL (<10) 05/23/17 17:10 Phosphatidylserine IgA <20 U/mL (<20) 05/23/17 17:10 Phosphatidylserine IgM <25 U/mL (<25) 05/23/17 17:10 Anti-Phospholipid Intrp see note 05/23/17 17:10 Anti-Cardiolipin IgG Ab <14 GPL (<=14) 05/23/17 17:10 Anti-Cardiolipin IgA Ab <11 APL (<=11) 05/23/17 17:10 Anti-Cardiolipin IgM Ab <12 MPL (<=12) 05/23/17 17:10 Complement C3 199 mg/dL H 05/23/17 17:10 Complement C4 44 mg/dL (ADULTS: 16-47) 05/23/17 17:10 Prothrombin Mut Interp see note 05/23/17 17:10 Prothrombin Gene Mutate see note 05/23/17 17:10 Prothromb Gene Review see note 05/23/17 17:10 Blood Type A POSITIVE 05/26/17 08:30 Blood Type Confirm A POSITIVE 05/26/17 09:15 Antibody Screen Negative 05/26/17 08:30 Crossmatch See Detail 05/26/17 08:30 BBK History Checked No verified bt 05/26/17 08:30 - Hospital Course Hospital Course: This is a 81Y M with PMH DM, HTN, Vit D def, spinal stenosis, prostate cancer s/ p radiation, chronic idiopathic constipation admitted for L leg DVT who is also found to have anemia and HCAP. Patient was admitted for fall and L leg pain. All X-rays in ED were negative for fracture. Head CT was negative for acute process. Lower extremity U/S was positive for DVT in L common femoral vein. Patient received IVC filter during stay. He has been worked up for DVT. Hypercoaguable work up showed that patient was weakly positive for Lupus. Heme was consulted. They report that patient should continue anticoagulation (Eliquis ) as outpatient. He will need a repeat Lupus work up as outpatient in 3 months. GI was consulted to rule out malignancy. Patient had colonoscopy which showed poor prep, no samples were taken to pathology. EGD showed hiatal hernia, non- bleeding esophageal ulcer and gastritis. Pathology was negative for malignancy on EGD. He was noted to have distended abdomen throughout his stay. CT abd/ pelvis showed increased gas throughout the colon, but no evidence of mass or obstruction. GI recommended outpatient colonoscopy in 1 month. He was also found to have anemia without any overt signs of bleeding. He was transfused 2U PRBC and Hgb has been stable since then. Of note, patient had one episode of transient atrial fibrillation. Cardiology was consulted. Echo showed . Cardiology added atenolol to medication regimen. Patient did not have any other episodes of a.fib since that one episode. CT chest/abd/pelvis also showed bibasilar infiltrate versus atelectasis. ID was consulted. Patient was found to have possible HCAP. As per ID, he will finish ABX course at [facility]. He will complete 5 days of Augmentin BID and Doxycycline BID. He will continue medications as per DEC. Discussed plan with patient, attending and case fitter who agrees with discharge plan. - Date & Time of H&P Date of H&P: 05/22/17 Time of H&P: 18:00 Discharge Exam - Head Exam Head Exam: ATRAUMATIC, NORMAL INSPECTION, NORMOCEPHALIC - Eye Exam Eye Exam: Normal appearance Pupil Exam: NORMAL ACCOMODATION - ENT Exam ENT Exam: Mucous Membranes Moist - Respiratory Exam Respiratory Exam: Clear to PA & Lateral, NORMAL BREATHING PATTERN, UNREMARKABLE. absent: Rhonchi, Wheezes, Respiratory Distress - Cardiovascular Exam Cardiovascular Exam: REGULAR RHYTHM, +S1, +S2. absent: Gallop, Rubs, Systolic Murmur - GI/Abdominal Exam GI & Abdominal Exam: Distended, Normal Bowel Sounds, Soft. absent: Firm, Guarding, Hernia, Rigid - Extremities Exam Extremities exam: pedal edema - Neurological Exam Neurological exam: Alert, CN II-XII Intact, Oriented x3 - Psychiatric Exam Psychiatric exam: Normal Affect, Normal Mood - Skin Skin Exam: Dry, Intact, Normal Color, Warm Discharge Plan - Discharge Medications Prescriptions: Amoxicillin/Clavulanate [Augmentin 875 MG-125 MG] 1 tab PO BID #10 tab Doxycycline Hyclate [Doryx] 100 mg PO BID #5 cap - Follow Up Plan Condition: FAIR Disposition: HOME/ ROUTINE Additional Instructions: 1. Discharged to Rehab facility, [facility] 2. Eliquis 10mg BID x 1 week then will switch to 5mg BID at [facility] 3. Finish course of abx: Doxycycline 100mg BID x 5 days and Augmentin BID x 5 days. 4. Continue other home medications as per DEC. 5. Patient will need repeat colonoscopy as outpatient due to poor prep at this admission. Referrals: Kian Smith MD [Primary Care Provider] -
[2017-05-29] MEDS: Potassium Chloride 20 mEq ER Tab PO SCH (10:36)
[2017-05-29] MEDS: POLYETHYLENE GLYCOL 3350 17 GM/Dose PACKET PO SCH (10:36)
[2017-05-29] MEDS: Lidocaine 5% Patch TD SCH (10:36)
[2017-05-29 11:02] VITALS: BP 103/55; PULSE 69; TEMP 97.3
--- NOTE | 2017-05-29 11:17 | PN ---
FINAL PROGRESS NOTE AND DISCHARGE SUMMARY DATE: 05/29/2017 SUBJECTIVE: The patient was seen again lying in the bed in room 262, bed 1. The patient yesterday refused to be out of bed, despite . The patient finally took the enema yesterday which was ordered day before yesterday. The patient refused to ambulate. The patient's family was explained about the need for patient's compliance. Yesterday in morning, the patient refused enema but later on the patient took it. The patient refused Relistor injection also. PHYSICAL EXAMINATION: VITAL SIGNS: T-max is 98.2. Telemetry shows sinus rhythm in 60s and 70s. Blood pressure 110/58, heart rate 67-72, respirations , O2 saturations 96%. HEAD: Normocephalic and atraumatic. HEENT: Shows pink conjunctivae, anicteric sclerae. No oropharyngeal lesion. NECK: No neck rigidity. CHEST: Kyphosis. LUNGS: Shows positive decreased breath sounds at the bases. Positive crepitus. Positive rhonchi. CARDIOVASCULAR: S1, S2, regular rhythm. ABDOMEN: Soft. Positive bowel sound. Distended abdomen. GENITALIA: Male. EXTREMITIES: Still shows 1+ pitting edema of the lower extremity, left more than the right. The patient has been refusing ДМИТРИЙ stockings and SCDs. MUSCULOSKELETAL: Shows a body mass index of 25.5. NEUROLOGICAL: The patient is alert, awake and responsive. Gait examination could not tested. I have met with the patient again today and I have explained to the patient regarding and emphasize the importance of compliance with medications, physician and nurses recommendation and orders and the patient's cooperation, which he acknowledged understood. The patient's nurse was also present at the time of the patient evaluation. DIAGNOSTIC DATA: 05/29: WBC is 6.7, hemoglobin and hematocrit 11.7 and 34.9, platelets of 217. Chemistry: Sodium 133, potassium 3.6, chloride 97, CO2 of 28, anion gap 12, BUN 20, creatinine 0.8, GFR greater than 60, glucose 96, calcium 8.1, phosphorus 3.8, magnesium 2.0. LFTs are normal. Total protein 5.0, albumin 2.7. Procalcitonin level is 0.06, lactic acid is normal 1.3. KARYN is positive with titer of 1:40. Lupus anticoagulant was detected. FINAL IMPRESSION AND PLAN & DISCHARGE DIAGNOSES: 1. Bibasilar atelectasis, pneumonia and bilateral pleural effusion. 2. Possible health-care associated pneumonia with bilateral pleural effusion. 3. Poor compliance and non compliance. 4. Chronic active gastritis and esophagitis. 5. Status post inferior vena cava filter placement. 6. Chronic idiopathic constipation. 7. Normocytic anemia status post packed red blood cell transfusion. 8. Elevated erythrocyte sedimentation rate. 9. Hypokalemia. 10. Iron deficiency anemia. 11. Hyponatremia. 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 13. Prerenal kidney injury. 14. Positive KARYN with titer of 1:40. 15. Positive lupus anticoagulant. 16. Status post 2 units of packed red blood cell transfusion. 17. Gait dysfunction. 18. Bilateral lower extremity venous stasis. 19. Chronically occluded right common femoral vein. 20. Left external iliac vein and left common femoral vein acute thrombosis. 21. Status post placement of IVC filter at L2 and L3. 22. Paroxysmal atrial fibrillation. 23. History of prostate carcinoma and prostate hypertrophy. 1. Poor compliance and non compliance. 2. Status post inferior vena cava filter placement. 3. Bilateral pleural effusion, bibasilar atelectasis, and pneumonia with consolidation and air bronchograms left more than the right. 4. Hiatal hernia. 5. Possible hepatic cyst with calcification. 6. Status post cholecystectomy. 7. Left-sided rib fracture. 8. Lumbar spine compression fracture. 9. Status post Inferior vena cava filter placement, infrarenal at L2, L3. 10. Acute left external iliac vein and common femoral vein thrombosis. 11. Left common femoral vein and left external iliac vein acute thrombosis. 12. Paroxysmal atrial fibrillation(resolved). 13. Gait dysfunction. 14. Questionable function quadriplegia. 15. Normocytic anemia. 16. Granulocytosis. 17. Possible lupus anticoagulant. 18. Hypernatremia. 19. Hypokalemia. 20. Prerenal kidney injury. 21. Transient hypophosphatemia. 22. Iron deficiency. 23. Elevated C-reactive protein. 24. Homocystinemia. 25. Low titer positive KARYN with homogenous pattern, 1:40. 26. Status post packed red blood cell transfusion x2. 27. Left anterior hemiblock block. 28. Fecal retention, fecal stasis and attempted colonoscopy with poor preparation. 29. Status post esophagogastroduodenoscopy with non-bleeding superficial lower third esophageal ulcer 15 mm. 30. [place] grade D esophagitis without bleeding in the lower third of the esophagus with 1 or more mucosal breaks involving at least 75% of the esophageal circumflex. 31. Gastritis. 32. Possible health care associated bibasilar atelectasis pneumonia and pleural effusion. 1. Acute blood loss anemia with decreasing hemoglobin and hematocrit, etiology undetermined. 2. Probably provoked left lower extremity hypoechoic acute occlusive thrombus of the left common femoral vein and left femoral vein. 3. Recurrent fall and gait dysfunction. 4. Chronic idiopathic constipation. 5. History of hypertension. 6. Paroxysmal atrial fibrillation converted to normal sinus rhythm. 7. Granulocytosis. 8. Elevated erythrocyte sedimentation rate. 9. Weakly positive lupus anticoagulant. 10. Hypokalemia. 11. Transient hyponatremia. 12. Prerenal kidney injury. 13. Hyperphosphatemia and hypermagnesemia. 14. Protein malnutrition and hyponatremia. 15. Iron deficiency. 16. Mild homocysteinemia. 17. Bilateral pleural effusion and bibasilar atelectasis with possible left lower lobe pneumonia. 18. Hepatic cyst. 19. Status post cholecystectomy. 20. Urinary bladder distention. 21. Prostatomegaly. 22. L2, L3, and T12 compression fracture. 23. Questionable gastroparesis with retained food particles in the gastric fundus. 24. History of spinal stenosis. 25. Chronic idiopathic constipation. 26. Left anterior hemiblock. 27. Status post esophagogastroduodenoscopy. 28. Nonbleeding superficial esophageal ulcer in the lower third of esophagus. 29. [place] grade D esophagitis without bleeding with 1 or more mucosal breaks involving at least 75% of the esophageal circumference. 30. Gastritis. 31. Hiatal hernia. 32. Status post attempted colonoscopy with poor colonoscopy prep and fecal retention. 33. Deconditioning. 34. Left ventricular ejection fraction of 55% with mild pulmonary arterial hypertension with right ventricular systolic pressure of 44 mmHg. 35. Left ventricular hypertensive cardiovascular disease. 36. Mild aortic regurgitation, trace mitral regurgitation, and trace to mild tricuspid regurgitation. 1. Questionable provoked versus unprovoked left lower extremity deep venous thrombosis of the left common femoral vein and left femoral vein with hypoechoic acute occlusive thrombus. 2. Anemia with decreasing hemoglobin and hematocrit. 3. Paroxysmal atrial fibrillation (resolved). 4. Bibasilar atelectasis and bilateral upper lobe atelectasis. 5. A 3.9 cm ascending aortic dilatation. 6. Bilateral small pleural effusion. 7. Large hiatal hernia. 8. Multilevel thoracic spondylosis. 9. T12 severe compression fracture and mild compression fracture of L2-L3 with anterior wedging of indeterminate age. 10. Right hepatic lobe cyst. 11. Cholecystectomy. 12. Prostatomegaly. 13. Left ventricular ejection fraction of 55%. 14. Pulmonary arterial hypertension with right ventricular systolic pressure of 44 mmHg. 15. Left ventricular hypertrophy. 16. Mild aortic and trace mitral regurgitation and mild tricuspid regurgitation. 17. Gait dysfunction. 18. Recurrent falls. 19. Left anterior hemiblock. 20. Paroxysmal atrial fibrillation with left anterior hemiblock with rapid ventricular response (resolved). 21. Chronic idiopathic constipation. 22. Elevated erythrocyte sedimentation rate. 23. Hyponatremia. 24. Hypokalemia. 25. Prerenal kidney injury. 26. Hyperphosphatemia. 27. Mild hypoalbuminemia and protein malnutrition. 28. Hypovitaminosis D. 29. Mild hyperhomocysteinemia. 30. A+ blood type. 31. History of anxiety. 32. Constipation. 33. Prostate carcinoma and prostate hypertrophy. 34. History of iron deficiency. 35. History of dyslipidemia. 36. History of neuropathy. 1. Acute probably unprovoked left lower extremity deep venous thrombosis of the left common femoral vein and left femoral vein, occlusive hypoechoic thrombus, probably unprovoked. 2. Transient hypotension, probably secondary to diuretics. 3. Bilateral lower extremity venous stasis (resolved). 4. Normocytic anemia. 5. Granulocytosis. 6. Elevated erythrocyte sedimentation rate of 40. 7. Prerenal kidney injury. 8. Hyperglycemia. 9. Hyperphosphatemia. 10. Iron deficiency. 11. Hypervitaminosis D. 12. Hypercholesterolemia with elevated LDL. 13. Bibasilar atelectasis and bilateral upper lobe atelectasis. 14. A 3.9-cm ascending thoracic aorta. 15. Bilateral small and minimal pleural effusion. 16. [id number] T12 compression fracture with mild compression fracture of L2-L3 with anterior wedging with indeterminate age. 17. Right hepatic lobe 1.5-cm hepatic cyst. 18. Fecal stasis and constipation. 19. Cholecystectomy. 20. Prostatomegaly with history of prostate carcinoma. 21. Large hiatal hernia. 22. 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 23. History of prostate carcinoma, status post radiation therapy. 24. Fecal retention. 25. Chronic idiopathic constipation. 26. Iron deficiency. 27. History of anxiety. 28. Hypovitaminosis D. 29. Prostatic hypertrophy. 30. Dyslipidemia. 31. Neuropathy. 1. Left lower extremity, possibly unprovoked deep venous thrombosis. 2. 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 3. History of hypertension. 4. History of questionable type 2 diabetes mellitus. 5. History of chronic constipation. 6. History of cholecystectomy. 7. History of degenerative joint disease of the lumbar spine with laminectomy. 8. History of T12 compression fracture. 9. History of gait dysfunction. 10. History of prostate carcinoma with history of radiation treatment. 11. Past medical history is also significant for chronic constipation, history of hypovitaminosis D, history of prostatic hypertrophy, history of dyslipidemia, and history of neuropathy. 12. Mild normocytic anemia with granulocytosis. 13. 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 14. Left common femoral vein and left femoral vein occlusive hypoechoic thrombus, probably unprovoked. 15. Status post fall with gait dysfunction. 16. 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 17. 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 18. Prominent left ring cisterna magna. 19. Left ribcage and hip and pelvic contusion secondary to fall. 20. Bibasilar atelectasis. 21. Cardiomegaly. 22. Cholecystectomy. 23. Degenerative joint disease of the thoracic and lumbar spine with dextroscoliosis of the thoracolumbar spine. 24. Bilateral hip joint narrowing. 25. Lumbar spine degenerative spondylosis. 26. Degenerative joint disease of the hips. 27. History of constipation with bowel diagnosis. 28. History of prostate carcinoma. 29. Degenerative joint disease with compression of the lumbar spine. 30. History of severe gait dysfunction and recurrent fall. 31. 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 32. Bilateral lower extremity weakness. 33. Severe lumbar spinal stenosis. 34. L2-L5 decompressive laminectomy. 35. T12 compression fracture. 36. Lumbar spine degenerative disk disease, disk bulging, and spinal stenosis. 37. Vitamin B12 deficiency. 38. History of prostatic hypertrophy. 39. Insomnia. 40. Anxiety disorder. 41. Atelectasis. 42. Multilevel lumbar spine degenerative disk disease and T12 compression fracture in 2015. 43. History of left lower extremity weakness with left footdrop. 44. L2-L5 decompression lumbar laminectomy. 45. Vitamin B12 and folate deficiency. 46. Aortic valve sclerosis. 1. Poor compliance and non compliance. 2. Status post inferior vena cava filter placement. 3. Bilateral pleural effusion, bibasilar atelectasis, and pneumonia with consolidation and air bronchograms left more than the right. 4. Hiatal hernia. 5. Possible hepatic cyst with calcification. 6. Status post cholecystectomy. 7. Left-sided rib fracture. 8. Lumbar spine compression fracture. 9. Status post Inferior vena cava filter placement, infrarenal at L2, L3. 10. Acute left external iliac vein and common femoral vein thrombosis. 11. Left common femoral vein and left external iliac vein acute thrombosis. 12. Paroxysmal atrial fibrillation(resolved). 13. Gait dysfunction. 14. Questionable function quadriplegia. 15. Normocytic anemia. 16. Granulocytosis. 17. Possible lupus anticoagulant. 18. Hypernatremia. 19. Hypokalemia. 20. Prerenal kidney injury. 21. Transient hypophosphatemia. 22. Iron deficiency. 23. Elevated C-reactive protein. 24. Homocystinemia. 25. Low titer positive KARYN with homogenous pattern, 1:40. 26. Status post packed red blood cell transfusion x2. 27. Left anterior hemiblock block. 28. Fecal retention, fecal stasis and attempted colonoscopy with poor preparation. 29. Status post esophagogastroduodenoscopy with non-bleeding superficial lower third esophageal ulcer 15 mm. 30. [place] grade D esophagitis without bleeding in the lower third of the esophagus with 1 or more mucosal breaks involving at least 75% of the esophageal circumflex. 31. Gastritis. 32. Possible health care associated bibasilar atelectasis pneumonia and pleural effusion. 1. Acute blood loss anemia with decreasing hemoglobin and hematocrit, etiology undetermined. 2. Probably provoked left lower extremity hypoechoic acute occlusive thrombus of the left common femoral vein and left femoral vein. 3. Recurrent fall and gait dysfunction. 4. Chronic idiopathic constipation. 5. History of hypertension. 6. Paroxysmal atrial fibrillation converted to normal sinus rhythm. 7. Granulocytosis. 8. Elevated erythrocyte sedimentation rate. 9. Weakly positive lupus anticoagulant. 10. Hypokalemia. 11. Transient hyponatremia. 12. Prerenal kidney injury. 13. Hyperphosphatemia and hypermagnesemia. 14. Protein malnutrition and hyponatremia. 15. Iron deficiency. 16. Mild homocysteinemia. 17. Bilateral pleural effusion and bibasilar atelectasis with possible left lower lobe pneumonia. 18. Hepatic cyst. 19. Status post cholecystectomy. 20. Urinary bladder distention. 21. Prostatomegaly. 22. L2, L3, and T12 compression fracture. 23. Questionable gastroparesis with retained food particles in the gastric fundus. 24. History of spinal stenosis. 25. Chronic idiopathic constipation. 26. Left anterior hemiblock. 27. Status post esophagogastroduodenoscopy. 28. Nonbleeding superficial esophageal ulcer in the lower third of esophagus. 29. [place] grade D esophagitis without bleeding with 1 or more mucosal breaks involving at least 75% of the esophageal circumference. 30. Gastritis. 31. Hiatal hernia. 32. Status post attempted colonoscopy with poor colonoscopy prep and fecal retention. 33. Deconditioning. 34. Left ventricular ejection fraction of 55% with mild pulmonary arterial hypertension with right ventricular systolic pressure of 44 mmHg. 35. Left ventricular hypertensive cardiovascular disease. 36. Mild aortic regurgitation, trace mitral regurgitation, and trace to mild tricuspid regurgitation. 1. Questionable provoked versus unprovoked left lower extremity deep venous thrombosis of the left common femoral vein and left femoral vein with hypoechoic acute occlusive thrombus. 2. Anemia with decreasing hemoglobin and hematocrit. 3. Paroxysmal atrial fibrillation (resolved). 4. Bibasilar atelectasis and bilateral upper lobe atelectasis. 5. A 3.9 cm ascending aortic dilatation. 6. Bilateral small pleural effusion. 7. Large hiatal hernia. 8. Multilevel thoracic spondylosis. 9. T12 severe compression fracture and mild compression fracture of L2-L3 with anterior wedging of indeterminate age. 10. Right hepatic lobe cyst. 11. Cholecystectomy. 12. Prostatomegaly. 13. Left ventricular ejection fraction of 55%. 14. Pulmonary arterial hypertension with right ventricular systolic pressure of 44 mmHg. 15. Left ventricular hypertrophy. 16. Mild aortic and trace mitral regurgitation and mild tricuspid regurgitation. 17. Gait dysfunction. 18. Recurrent falls. 19. Left anterior hemiblock. 20. Paroxysmal atrial fibrillation with left anterior hemiblock with rapid ventricular response (resolved). 21. Chronic idiopathic constipation. 22. Elevated erythrocyte sedimentation rate. 23. Hyponatremia. 24. Hypokalemia. 25. Prerenal kidney injury. 26. Hyperphosphatemia. 27. Mild hypoalbuminemia and protein malnutrition. 28. Hypovitaminosis D. 29. Mild hyperhomocysteinemia. 30. A+ blood type. 31. History of anxiety. 32. Constipation. 33. Prostate carcinoma and prostate hypertrophy. 34. History of iron deficiency. 35. History of dyslipidemia. 36. History of neuropathy. 1. Acute probably unprovoked left lower extremity deep venous thrombosis of the left common femoral vein and left femoral vein, occlusive hypoechoic thrombus, probably unprovoked. 2. Transient hypotension, probably secondary to diuretics. 3. Bilateral lower extremity venous stasis (resolved). 4. Normocytic anemia. 5. Granulocytosis. 6. Elevated erythrocyte sedimentation rate of 40. 7. Prerenal kidney injury. 8. Hyperglycemia. 9. Hyperphosphatemia. 10. Iron deficiency. 11. Hypervitaminosis D. 12. Hypercholesterolemia with elevated LDL. 13. Bibasilar atelectasis and bilateral upper lobe atelectasis. 14. A 3.9-cm ascending thoracic aorta. 15. Bilateral small and minimal pleural effusion. 16. [id number] T12 compression fracture with mild compression fracture of L2-L3 with anterior wedging with indeterminate age. 17. Right hepatic lobe 1.5-cm hepatic cyst. 18. Fecal stasis and constipation. 19. Cholecystectomy. 20. Prostatomegaly with history of prostate carcinoma. 21. Large hiatal hernia. 22. 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 23. History of prostate carcinoma, status post radiation therapy. 24. Fecal retention. 25. Chronic idiopathic constipation. 26. Iron deficiency. 27. History of anxiety. 28. Hypovitaminosis D. 29. Prostatic hypertrophy. 30. Dyslipidemia. 31. Neuropathy. 1. Left lower extremity, possibly unprovoked deep venous thrombosis. 2. 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 3. History of hypertension. 4. History of questionable type 2 diabetes mellitus. 5. History of chronic constipation. 6. History of cholecystectomy. 7. History of degenerative joint disease of the lumbar spine with laminectomy. 8. History of T12 compression fracture. 9. History of gait dysfunction. 10. History of prostate carcinoma with history of radiation treatment. 11. Past medical history is also significant for chronic constipation, history of hypovitaminosis D, history of prostatic hypertrophy, history of dyslipidemia, and history of neuropathy. 12. Mild normocytic anemia with granulocytosis. 13. 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 14. Left common femoral vein and left femoral vein occlusive hypoechoic thrombus, probably unprovoked. 15. Status post fall with gait dysfunction. 16. 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 17. 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 18. Prominent left ring cisterna magna. 19. Left ribcage and hip and pelvic contusion secondary to fall. 20. Bibasilar atelectasis. 21. Cardiomegaly. 22. Cholecystectomy. 23. Degenerative joint disease of the thoracic and lumbar spine with dextroscoliosis of the thoracolumbar spine. 24. Bilateral hip joint narrowing. 25. Lumbar spine degenerative spondylosis. 26. Degenerative joint disease of the hips. 27. History of constipation with bowel diagnosis. 28. History of prostate carcinoma. 29. Degenerative joint disease with compression of the lumbar spine. 30. History of severe gait dysfunction and recurrent fall. 31. 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 32. Bilateral lower extremity weakness. 33. Severe lumbar spinal stenosis. 34. L2-L5 decompressive laminectomy. 35. T12 compression fracture. 36. Lumbar spine degenerative disk disease, disk bulging, and spinal stenosis. 37. Vitamin B12 deficiency. 38. History of prostatic hypertrophy. 39. Insomnia. 40. Anxiety disorder. 41. Atelectasis. 42. Multilevel lumbar spine degenerative disk disease and T12 compression fracture in 2014. 43. History of left lower extremity weakness with left footdrop. 44. L2-L5 decompression lumbar laminectomy. 45. Vitamin B12 and folate deficiency. 46. Aortic valve sclerosis. 47. GAIT DYSFUNCTION 48. POSSIBLE FUNCTIONAL QUADRIPLEGIA. PLAN: At this time, the patient has been ordered serial labs. The patient seen by hematology/oncology, recommendation noted. Case discussed with hematology/oncology recommends starting Eliquis for DVT and anticoagulation. Serial CBC's ordered. Current consultation cardiology, hematology/oncology, infectious disease. The patient is on DuoNeb and Mucomyst nebulizer treatment, Ativan 0.5 at bedtime, p.r.n., Colace 100 mg 3 times a day, doxycycline 100 mg IV q. 12, vitamin D 50,000 unit weekly, Eliquis 10 mg twice a day for 7 days. The patient was started on Eliquis 10 mg twice day for 7 days, then 5 mg twice a day. The patient is on Flomax 0.4 daily, Folic acid 1 mg daily, K-Dur 20 mEq twice a day, Lasix 20 IV every 12, Lidoderm patch to the affected area, Lipitor 40 mg daily, cefepime 1 g IV q. 8, MiraLax 17 g 3 times a day, simethicone 80 mg before meals and bedtime, Neurontin 100 mg 3 times a day, Proscar 5 mg daily, Protonix 40 mg twice day, Tenormin 12.5 twice a day. The patient received Vancomycin 1 g x1 dose yesterday, vitamin D3 2000 international units daily, spirometry q. 2 hours, heart-healthy diet, out of bed, ДМИТРИЙ stockings, SCDs, occupational therapy, physical therapy has been ordered, multiple times which the patient has been refuses. Stool for occult blood ordered, which has not done yet. The patient will be considered for discharge to subacute rehab if accepted with IV antibiotics for the recommended duration by infectious diseases. The patient has been repeatedly advice to comply with physician and nurses recommendation. The patient discharge medications will be reconciled upon discharge. At present, the patient will be considered for possible discharge to [facility] or subacute rehab, where the patient is accepted for further treatment and evaluation. The patient is started on anticoagulation. The patient's lab work will be monitored. DICTATED AND ELECTRONICALLY SIGNED NOT READ. Kian Smith MD [facility]
--- NOTE | 2017-05-29 11:33 | CP.PCM.PN ---
Subjective - Date & Time of Evaluation Date of Evaluation: 05/29/17 Time of Evaluation: 09:40 - Subjective Subjective: Comfortable on a chair, still with dyspnea on exertion but no dyspnea at rest, no fevers overnight, no cough, has occasional nausea. Objective - Vital Signs/Intake and Output Vital Signs (last 24 hours): Temp Pulse Resp BP Pulse Ox 98.2 F 67 20 110/58 L 96 05/29/17 06:00 05/29/17 06:00 05/29/17 06:00 05/29/17 06:00 05/29/17 06:00 Intake and Output: 05/28/17 05/29/17 18:59 06:59 Intake Total 356 Output Total 300 Balance 56 - Medications Medications: Current Medications Acetylcysteine (Acetylcysteine 20%) 4 ml [facility] [id number] Last Admin: 05/29/17 01:32 Dose: 4 ml Albuterol/Ipratropium (Duoneb 3 Mg/0.5 Mg (3 Ml) Ud) 3 ml [facility] [id number] [facility] Last Admin: 05/29/17 01:32 Dose: 3 ml Atenolol (Tenormin) 12.5 mg PO BID [facility] Last Admin: 05/28/17 18:55 Dose: 12.5 mg Atorvastatin Calcium (Lipitor) 40 mg PO DIN [facility] Last Admin: 05/28/17 17:56 Dose: 40 mg Cholecalciferol (Vitamin D) 2,000 iu PO DAILY [facility] Last Admin: 05/28/17 09:11 Dose: 2,000 iu Docusate Sodium (Colace) 100 mg PO TID [facility] Last Admin: 05/28/17 17:55 Dose: 100 mg Ergocalciferol (Drisdol 50,000 Intl Units Cap) 1 cap PO Q7D [facility] Last Admin: 05/22/17 20:07 Dose: 1 cap Finasteride (Proscar) 5 mg PO DAILY [facility] Last Admin: 05/28/17 09:11 Dose: 5 mg Folic Acid (Folic Acid) 1 mg PO DAILY [facility] Last Admin: 05/28/17 09:12 Dose: 1 mg Furosemide (Lasix) 20 mg IVP Q12 [facility] Last Admin: 05/28/17 21:20 Dose: 20 mg Gabapentin (Neurontin) 100 mg PO TID [facility] PRN Reason: Protocol Last Admin: 05/28/17 17:55 Dose: 100 mg Doxycycline Hyclate 100 mg/ (Sodium Chloride) 100 mls @ 100 mls/hr IVPB Q12 [facility] PRN Reason: Protocol Last Admin: 05/28/17 21:21 Dose: 100 mls/hr Cefepime HCl (Maxipime 1gm) 1 gm in 100 mls @ 100 mls/hr IVPB Q8 [facility] PRN Reason: Protocol Stop: 06/04/17 14:01 Last Admin: 05/29/17 05:33 Dose: 100 mls/hr Lidocaine (Lidoderm) 1 ea TD DAILY [facility] Last Admin: 05/28/17 09:41 Dose: 1 ea Lorazepam (Ativan) 0.5 mg PO HS PRN; Protocol PRN Reason: Anxiety Last Admin: 05/28/17 21:32 Dose: 0.5 mg Pantoprazole Sodium (Protonix Ec Tab) 40 mg PO ACBD [facility] Last Admin: 05/28/17 17:56 Dose: 40 mg Polyethylene Glycol (Miralax) 17 gm PO TID [facility] Last Admin: 05/28/17 18:19 Dose: Not Given Potassium Chloride (K-Dur 20 Meq Er Tab) 20 meq PO BID [facility] Last Admin: 05/28/17 17:59 Dose: 20 meq Simethicone (Mylicon Chew Tab) 80 mg PO PCHS [facility] Last Admin: 05/28/17 21:20 Dose: 80 mg Tamsulosin HCl (Flomax) 0.4 mg PO DAILY [facility] Last Admin: 05/28/17 09:12 Dose: 0.4 mg - Labs Labs: 05/29/17 05:20 05/28/17 04:30 PT 10.7 Seconds (9.9-11.8) 05/23/17 17:10 INR 0.99 (0.93-1.08) 05/23/17 17:10 APTT 32.8 Seconds (23.7-30.8) H 05/23/17 17:10 - Constitutional Appears: Non-toxic, No Acute Distress - Head Exam Head Exam: NORMAL INSPECTION - Neck Exam Neck Exam: absent: Meningismus - Respiratory Exam Respiratory Exam: Decreased Breath Sounds - Cardiovascular Exam Cardiovascular Exam: +S1, +S2 - GI/Abdominal Exam GI & Abdominal Exam: Soft. absent: Tenderness Assessment and Plan - Assessment and Plan (Free Text) Plan: Assessment Rule out healthcare-associated pneumonia in this patient with bilateral pleural effusions spinal stenosis S/P laminectomy and decompression of L2-L5 Prostate CA S/P radiation therapy Plan on Cefepime and Doxycycline (day 3); blood cx are negative, PCT is 0.06; reviewed CT scan of the abdomen and pelvis which showed bilateral pleural effusions with lower lobe consolidations - when ready for discharge, can be switched to PO augmentin and PO Doxycycline to complete another 3-5 days
== END 2017-05-29 14:45 | DRG 252 ==
LOC: ED 13:05 → ERH 16:35 → 2RNO 19:25
PROVIDERS: ADMIT Internal Medicine; ATTEND Internal Medicine
PROC: 0DB68ZX Excision of Stomach, Via Natural or Artificial Opening Endoscopic, Diagnostic (ICD-10-PCS; 2017-05-26)
PROC: 0DB58ZX Excision of Esophagus, Via Natural or Artificial Opening Endoscopic, Diagnostic (ICD-10-PCS; 2017-05-26)
PROC: 0DJD8ZZ Inspection of Lower Intestinal Tract, Via Natural or Artificial Opening Endoscopic (ICD-10-PCS; 2017-05-26 12:00)
PROC: 06H03DZ Insertion of Intraluminal Device into Inferior Vena Cava, Percutaneous Approach (ICD-10-PCS; principal; 2017-05-27)
DX: I82.412 Acute embolism and thrombosis of left femoral vein (principal); I26.99 Other pulmonary embolism without acute cor pulmonale; J18.9 Pneumonia, unspecified organism; J90 Pleural effusion, not elsewhere classified; E46 Unspecified protein-calorie malnutrition; E87.0 Hyperosmolality and hypernatremia; E72.11 Homocystinuria; D68.62 Lupus anticoagulant syndrome; I11.9 Hypertensive heart disease without heart failure; E87.1 Hypo-osmolality and hyponatremia; D62 Acute posthemorrhagic anemia; J98.11 Atelectasis; K22.10 Ulcer of esophagus without bleeding; K62.5 Hemorrhage of anus and rectum; M48.54XA Collapsed vertebra, not elsewhere classified, thoracic region, initial encounter for fracture; M48.56XA Collapsed vertebra, not elsewhere classified, lumbar region, initial encounter for fracture; S22.32XA Fracture of one rib, left side, initial encounter for closed fracture; W01.0XXA Fall on same level from slipping, tripping and stumbling without subsequent striking against object, initial encounter; E11.65 Type 2 diabetes mellitus with hyperglycemia; I48.0 Paroxysmal atrial fibrillation; I27.2 Other secondary pulmonary hypertension; D50.9 Iron deficiency anemia, unspecified; E53.8 Deficiency of other specified B group vitamins; E55.9 Vitamin D deficiency, unspecified; E78.00 Pure hypercholesterolemia, unspecified; E78.5 Hyperlipidemia, unspecified; E83.39 Other disorders of phosphorus metabolism; E83.41 Hypermagnesemia; E87.6 Hypokalemia; F41.9 Anxiety disorder, unspecified; G47.00 Insomnia, unspecified; G62.9 Polyneuropathy, unspecified; G93.89 Other specified disorders of brain; I49.3 Ventricular premature depolarization; I77.810 Thoracic aortic ectasia; I87.8 Other specified disorders of veins; Y95 Nosocomial condition; K29.50 Unspecified chronic gastritis without bleeding; K44.9 Diaphragmatic hernia without obstruction or gangrene; K59.04 Chronic idiopathic constipation; K59.09 Other constipation; K76.89 Other specified diseases of liver; M16.0 Bilateral primary osteoarthritis of hip; M41.9 Scoliosis, unspecified; M47.814 Spondylosis without myelopathy or radiculopathy, thoracic region; M48.06 Spinal stenosis, lumbar region; M51.36 Other intervertebral disc degeneration, lumbar region; N32.89 Other specified disorders of bladder; N40.0 Benign prostatic hyperplasia without lower urinary tract symptoms; R29.6 Repeated falls; I95.2 Hypotension due to drugs; T50.2X5A Adverse effect of carbonic-anhydrase inhibitors, benzothiadiazides and other diuretics, initial encounter; Z79.01 Long term (current) use of anticoagulants; Z79.899 Other long term (current) drug therapy; Z85.46 Personal history of malignant neoplasm of prostate; Z92.3 Personal history of irradiation; Z90.49 Acquired absence of other specified parts of digestive tract; Z91.19 Patient's noncompliance with other medical treatment and regimen; K20.9 Esophagitis, unspecified; K64.8 Other hemorrhoids; Y92.002 Bathroom of unspecified non-institutional (private) residence as the place of occurrence of the external cause

== ENCOUNTER 2017-06-18 16:12 | Emergency (ER) | payer MEDICARE, OTHER ==
[2017-06-18 16:14] VITALS: BMI 24.3
[2017-06-18 16:15] VITALS: RESP 16; TEMP 98.4
[2017-06-18 17:03] LABS: BASO # 0.03 K/mm3 (0.0-2.0); BASO % 0.5 % (0.0-3.0); EOS # 0.2 (0.0-0.7); EOS % 3.8 % (1.5-5.0); GRAN # 3.91 (1.4-6.5); GRAN % 66.7 % (50.0-68.0); HEMATOCRIT 41.8 % (42.0-52.0); LYMPH # 1.3 (1.2-3.4); LYMPH % 21.3 % (22.0-35.0); MEAN CELL VOLUME 82.4 fl (80.0-105.0); MEAN CORPUSCULAR HEMOGLOBIN 27.6 pg (25.0-35.0); MEAN CORPUSCULAR HGB CONC 33.5 g/dl (31.0-37.0); MEAN PLATELET VOLUME 10.5 fl (7.0-11.0); MONO # 0.5 (0.1-0.6); MONO % 7.7 % (1.0-6.0); RED CELL DISTRIBUTION WIDTH 15.2 % (11.5-14.5); WHITE BLOOD COUNT 5.9 10^3/ul (4.5-11.0)
[2017-06-18 17:14] LABS: INR 1.12 (0.93-1.08); PARTIAL THROMBOPLASTIN TIME 29.9 Seconds (23.7-30.8)
[2017-06-18 17:16] LABS: ALB/GLOB RATIO 1.4 (1.1-1.8); ALKALINE PHOSPHATASE 97 U/L (38-133); ALT/SGPT 36 U/L (7-56); AST/SGOT 31 U/L (15-59); BILIRUBIN,TOTAL 0.7 mg/dL (0.2-1.3); BLOOD UREA NITROGEN 17 mg/dL (7-21); CALCIUM 9.4 mg/dL (8.4-10.5); CARBON DIOXIDE 30 mmol/L (21-33); GFR AFRICAN-AMERICAN > 60; GLUCOSE,RANDOM 108 mg/dL (70-110); POTASSIUM 3.7 mmol/L (3.6-5.0); SODIUM 142 mmol/L (132-148); TOTAL PROTEIN 7.2 g/dL (5.8-8.3)
[2017-06-18 17:17] LABS: CHLORIDE 99 mmol/L (98-107)
--- NOTE | 2017-06-18 17:28 | ED PDOC ---
Arrival/HPI - General Chief Complaint: Lower Extremity Problem/Injury Time Seen by Provider: 06/18/17 16:16 Historian: Patient, Family, Group Home - History of Present Illness Narrative History of Present Illness (Text): 06/18/17 17:25 Patient is an 81 yo male past medical history of left leg deep vein thombosis diagnosed earlier this month, taking Eliquis, presents to ED after reportedly experiencing pain and swelling to his left leg with discoloration "when I stood up in the bathroom". Patient denies direct trauma. Denies fall or dizziness or syncope. No associated chest pain or shortness of breath. Patient sat down and pain and discoloration resolved "in a few minutes". No associated pleuritic discomfort. No acute numbness or weakness. Patient has been taking medication as directed. He also has history of recent IVC filter placement. Time/Duration: Prior to Arrival Symptom Onset: Sudden Symptom Course: Resolved Past Medical History - Infectious Disease Hx of Infectious Diseases: None - Tetanus Immunization Tetanus Immunization: Unknown - Cardiac Hx Hypertension: Yes - Pulmonary Hx Respiratory Disorders: No Hx Asthma: (denies) - Neurological Hx Neurological Disorder: No - HEENT Hx HEENT Disorder: No - Renal Hx Renal Disorder: No - Endocrine/Metabolic Hx Endocrine Disorders: No - Hematological/Oncological Hx Blood Transfusions: No Hx Blood Transfusion Reaction: No - Integumentary Hx Dermatological Disorder: No - Musculoskeletal/Rheumatological Hx Falls: Yes (fell yesterday) - Gastrointestinal Hx Gastrointestinal Disorders: Yes (CONSTIPATION (CHRONIC),BOWEL OBSTRUCTION,) - Genitourinary/Gynecological Hx Genitourinary Disorders: No - Psychiatric Hx Psychophysiologic Disorder: No Hx Substance Use: No - Surgical History Hx Cholecystectomy: Yes Other/Comment: lumbar decompression laminectomy - Anesthesia Hx Anesthesia Reactions: No Hx Malignant Hyperthermia: No - Suicidal Assessment Feels Threatened In Home Enviroment: No Family/Social History Family/Social History: Unknown Family HX Smoking Status: Never Smoked Hx Alcohol Use: No Hx Substance Use: No Hx Substance Use Treatment: No Allergies/Home Meds Allergies/Adverse Reactions: Allergies No Known Allergies Allergy (Verified 05/29/15 22:25) Home Medications: Home Meds Medication Instructions Recorded Confirmed LORazepam [Ativan] 0.5 mg PO HS PRN 05/26/15 06/18/17 B-Complex Vit Plus 1 tab PO DAILY 05/22/17 06/18/17 Docusate [Colace] 100 mg PO BID 05/22/17 06/18/17 Pregabalin [Lyrica] 100 mg PO TID 05/22/17 06/18/17 Tizanidine HCl 4 mg PO HS 05/22/17 06/18/17 Vitamin B Complex [Balance B-100] 1 tab PO DAILY 05/22/17 06/18/17 traMADol [Ultram] 1 tab PO BID 05/22/17 06/18/17 Apixaban [Eliquis] 5 mg PO BID 06/18/17 06/18/17 Atenolol [Tenormin] 0.5 mg PO BID PRN 06/18/17 06/18/17 Furosemide [Lasix] 40 mg PO DAILY 06/18/17 06/18/17 Polyethylene Glycol 3350 [Miralax] 17 gm PO TID PRN 06/18/17 06/18/17 Review of Systems - Review of Systems Constitutional: absent: Fatigue, Fevers Eyes: absent: Vision Changes Respiratory: absent: SOB Cardiovascular: absent: Chest Pain Gastrointestinal: absent: Abdominal Pain, Constipation Genitourinary Male: absent: Dysuria, Frequency Musculoskeletal: Other (left leg pain, no bleeding). absent: Back Pain Skin: absent: Rash Neurological: absent: Headache, Focal Weakness Endocrine: absent: Polyuria Psychiatric: absent: Anxiety, Depression Physical Exam Vital Signs Reviewed: Yes Vital Signs Temp Pulse Resp BP Pulse Ox 06/18/17 16:13 98.4 F 86 16 116/55 L 96 Temperature: Afebrile Appearance: Positive for: Well-Appearing, Non-Toxic - Systems Exam Head: Present: Atraumatic, Normocephalic Pupils: Present: PERRL Extroacular Muscles: Present: EOMI Mouth: Present: Moist Mucous Membranes Neck: Present: Normal Range of Motion Respiratory/Chest: Present: Clear to Auscultation. No: Respiratory Distress Cardiovascular: Present: Regular Rate and Rhythm, Murmurs Abdomen: No: Tenderness Rectal: No: Gross Blood Back: No: CVA Tenderness Upper Extremity: No: Cyanosis, Edema Lower Extremity: Present: NORMAL PULSES, Tenderness (mild pain to left upper leg with no edema or erythema, full range of motion of hip, knee and ankel with no warmth or erythema, BOUNDING STRONG DISTAL DP AND PT PULSES in left lower extremity), Neurovascularly Intact. No: Edema, CALF TENDERNESS Neurological: Present: Motor Func Grossly Intact, Normal Sensory Function Skin: Present: Warm Psychiatric: Present: Alert, Normal Concentration Medical Decision Making ED Course and Treatment: 06/18/17 17:47 Patient's prior visit reviewed. He has KNOWN recent diagnosis of LLE DVT. On exam there is some pain to left upper leg but he states that he has had this pain since last admission, on exam he has STRONG and easily palpable distal pulses in the lower extremity. There is no groin or abdominal pain. There is no chest pain or sob. Patient has hx of IVC filter placement and is ALREADY TAKING ELIQUIS. No acute chest pain or sob. As he has known hx of dvt, already takes Eliquis, and has IVC filter with no chest pain or sob, as well as strong distal pulses, and resolution of earlier pain, I have reviewed exam and labs with Dr. Smith, and patient will be discharged back to assisted with close follow-up and observation for any additional or return of symptoms. Treatment plan reviewed with patient and family. - Lab Interpretations Lab Results: 06/18/17 16:55 06/18/17 16:55 Lab Results 06/18/17 16:55: PT 12.1 H, INR 1.12 H, APTT 29.9 06/18/17 16:55: WBC 5.9, RBC 5.07, Hgb 14.0, Hct 41.8 L, MCV 82.4, MCH 27.6, MCHC 33.5, RDW 15.2 H, Plt Count 168, MPV 10.5, Gran % 66.7, Lymph % (Auto) 21.3 L, [place] % (Auto) 7.7 H, Eos % (Auto) 3.8, Baso % (Auto) 0.5, Gran # 3.91, Lymph # 1.3, [place] # 0.5, Eos # 0.2, Baso # 0.03 06/18/17 16:55: Sodium 142, Potassium 3.7, Chloride 99, Carbon Dioxide 30, Anion Gap 17, BUN 17, Creatinine 0.8, Est GFR ( Amer) > 60, Est GFR (Non- Af Amer) > 60, Random Glucose 108, Calcium 9.4, Total Bilirubin 0.7, AST 31, ALT 36, Alkaline Phosphatase 97, Total Protein 7.2, Albumin 4.2, Globulin 3.0, Albumin/Globulin Ratio 1.4 Disposition/Present on Arrival - Present on Arrival Any Indicators Present on Arrival: Yes History of DVT/PE: Yes History of Uncontrolled Diabetes: No Urinary Catheter: No History of Decub. Ulcer: No History Surgical Site Infection Following: None - Disposition Have Diagnosis and Disposition been Completed?: Yes Diagnosis: Leg pain Disposition: TRANSF TO [facility] Disposition Time: 17:49 Patient Plan: Discharge Patient Problems: Current Active Problems Problem Status Onset Leg pain Acute Condition: GOOD Discharge Instructions (ExitCare): Deep Venous Thrombosis (ED), Leg Pain (ED) Additional Instructions: Continue patient's current medication. For any chest pain, any shortness of breath, any fever or chills, any abdominal pain, any rash or redness, any new or persistent symptoms, get rechecked. Follow-up with Dr. Smith as needed. Referrals: Kian Smith MD [Primary Care Provider] - Follow up with primary Forms: [employer] (Kazakh)
[2017-06-18 18:05] VITALS: BP 104/53; PULSE 98; O2SAT 98
--- NOTE | 2017-06-18 19:48 | CARD ---
APPROVED REPORT EKG Measurement Heart [id number] UT 210P14 [id number] <Conclusion> Sinus rhythm with 1st degree AV block Left anterior fascicular block Cannot rule out Anterior infarct, age undetermined Abnormal ECG
== END 2017-06-18 18:06 ==
LOC: ED 16:12
DX: M79.605 Pain in left leg (principal); I10 Essential (primary) hypertension; Z86.718 Personal history of other venous thrombosis and embolism; Z79.01 Long term (current) use of anticoagulants

== ENCOUNTER 2018-11-26 15:24 | Emergency (ER) | payer MEDICARE, OTHER ==
[2018-11-26 16:04] VITALS: BMI 25.0
[2018-11-26 16:08] VITALS: RESP 18
[2018-11-26 16:23] LABS: BASO # 0.01 K/mm3 (0.0-2.0); BASO % 0.1 % (0.0-3.0); HEMOGLOBIN 12.9 g/dL (14.0-18.0); LYMPH # 0.5 (1.2-3.4); LYMPH % 4.8 % (22.0-35.0); MEAN CELL VOLUME 84.9 fl (80.0-105.0); MEAN CORPUSCULAR HEMOGLOBIN 27.4 pg (25.0-35.0); MEAN CORPUSCULAR HGB CONC 32.3 g/dl (31.0-37.0); MEAN PLATELET VOLUME 10.6 fl (7.0-11.0); MONO # 0.4 (0.1-0.6); MONO % 3.9 % (1.0-6.0); PLATELET COUNT 123 10^3/uL (120.0-450.0); RBC 4.71 10^6/uL (3.5-6.1); RED CELL DISTRIBUTION WIDTH 13.9 % (11.5-14.5); WHITE BLOOD COUNT 9.5 10^3/uL (4.5-11.0)
--- NOTE | 2018-11-26 16:28 | ED PDOC ---
Arrival/HPI - General Chief Complaint: Weakness/Neurological Deficit Time Seen by Provider: 11/26/18 15:28 Historian: Patient - History of Present Illness Narrative History of Present Illness (Text): 11/26/18 16:03 A 83 year old male, whose past medical history includes hypertension and DVT on eliquis, presents to the emergency department, accompanied by family, complaining of generalized weakness since earlier today. Patient is a poor historian. Patient is unclear of of onset. Patient reportedly fell today and was found by qa consultant. [employer] Adviser is unsure of how long patient was on the floor. Patient denies any fever, chills, shortness of breath, chest pain, headache, dizziness, or any other complaints. PMD: Dr. Langley Time/Duration: 4-6 hours Symptom Onset: Gradual Symptom Course: Unchanged Activities at Onset: Light Context: Home Past Medical History - Provider Review Nursing Documentation Reviewed: Yes - Infectious Disease Hx of Infectious Diseases: None - Tetanus Immunization Tetanus Immunization: Unknown - Cardiac Hx Cardiac Disorders: Yes Hx Cardiac Arrhythmia: Yes (ATRIAL FIB) Hx MN: Yes Hx Hypertension: Yes Hx Internal Defibrillator: No Hx Pacemaker: No Other/Comment: left ventricular ejection fraction 57%. LEFT LEG DVT - Pulmonary Hx Respiratory Disorders: Yes Hx Pneumonia: Yes Hx Pulmonary Embolism: No Hx Sleep Apnea: No - Neurological Hx Neurological Disorder: Yes Hx Dizziness: Yes Other/Comment: left foot drop - HEENT Hx HEENT Disorder: Yes Hx Cataracts: Yes - Renal Hx Renal Disorder: No - Endocrine/Metabolic Hx Endocrine Disorders: Yes Hx Diabetes Mellitus Type 2: Yes (as per pt long time ago, no meds) - Hematological/Oncological Hx Blood Disorders: Yes Hx Anemia: Yes Hx Blood Transfusions: No Hx Cancer: Yes (prostate with radiation) - Integumentary Hx Dermatological Disorder: Yes Other/Comment: LEG SWELLING - Musculoskeletal/Rheumatological Hx Musculoskeletal Disorders: Yes (dejenerative disc disease) Hx Back Pain: Yes Hx Falls: Yes Hx Fractures: Yes (T12 compression fx) Hx Spinal Stenosis: Yes Hx Unsteady Gait: Yes (walker) Other/Comment: s/p laminectomy 05/15/15 at [facility] [place], lumbar decompression dr mcgee - Gastrointestinal Hx Gastrointestinal Disorders: Yes (CONSTIPATION (CHRONIC),BOWEL OBSTRUCTION,) Hx Gastritis: Yes Hx Hemorrhoids: Yes Other/Comment: HIATAL HERNIA - Genitourinary/Gynecological Hx Genitourinary Disorders: Yes Hx Prostate Cancer: Yes Hx Reproductive Disorders: Yes (PROSTATE CA WITH H/O OF RADIATION) - Psychiatric Hx Psychophysiologic Disorder: No Hx Substance Use: No - Surgical History Hx Cardiac Catheterization: Yes Hx Cholecystectomy: Yes Hx Orthopedic Surgery: Yes (DECOMPRESSION LAMINECTOMY) - Anesthesia Hx Anesthesia: Yes Hx Anesthesia Reactions: No Hx Malignant Hyperthermia: No - Suicidal Assessment Feels Threatened In Home Enviroment: No Family/Social History - Physician Review Nursing Documentation Reviewed: Yes Family/Social History: No Known Family HX Smoking Status: Never Smoked Hx Alcohol Use: No Hx Substance Use: No Hx Substance Use Treatment: No Allergies/Home Meds Allergies/Adverse Reactions: Allergies No Known Allergies Allergy (Verified 11/26/18 16:04) Home Medications: Home Meds Medication Instructions Recorded Confirmed B-Complex Vit Plus 1 tab PO DAILY 05/22/17 10/29/18 RX: Docusate [Colace] 100 mg PO BID 05/22/17 10/29/18 RX: Vitamin B Complex [Balance 1 tab PO DAILY 05/22/17 10/29/18 B-100] Furosemide [Lasix] 40 mg PO DAILY 06/18/17 10/29/18 RX: Apixaban [Eliquis] 5 mg PO BID 06/18/17 10/29/18 RX: Atenolol [Tenormin] 0.5 mg PO BID PRN 06/18/17 10/29/18 RX: Potassium Chloride [K-Dur 20 40 meq PO BID 10/29/18 10/29/18 mEq ER Tab] Review of Systems - Physician Review All systems were reviewed & negative as marked: Yes - Review of Systems Constitutional: absent: Fevers, Other (chills) Respiratory: absent: SOB Cardiovascular: absent: Chest Pain Neurological: Other (generalized weakness). absent: Headache, Dizziness Physical Exam Vital Signs Reviewed: Yes Vital Signs Temp Pulse Resp BP Pulse Ox 11/26/18 16:06 97.8 F 97 H 18 97/56 L 99 Temperature: Afebrile Blood Pressure: Hypotensive Pulse: Tachycardic Respiratory Rate: Normal Appearance: Positive for: Well-Appearing - Systems Exam Head: Present: Atraumatic, Normocephalic Pupils: Present: PERRL Extroacular Muscles: Present: EOMI Conjunctiva: Present: Normal Mouth: Present: Moist Mucous Membranes Neck: Present: Normal Range of Motion Respiratory/Chest: Present: Clear to Auscultation, Good Air Exchange. No: Respiratory Distress, Accessory Muscle Use Cardiovascular: Present: Regular Rate and Rhythm, Normal S1, S2. No: Murmurs Abdomen: No: Tenderness, Distention, Peritoneal Signs Back: Present: Normal Inspection Upper Extremity: Present: Normal Inspection. No: Cyanosis, Edema Lower Extremity: Present: Normal Inspection. No: Edema Skin: Present: Warm, Dry, Normal Color. No: Rashes Psychiatric: Present: Alert, Oriented x 3, Normal Insight, Normal Concentration Medical Decision Making ED Course and Treatment: 11/26/18 16:05 Impression: 83 year old male presenting to the emergency department complaining of generalized weakness. upon ed arrival, pt noted to be poor historain. states fall with unsteady gait. case discussed upon arrival with baltazar langley. well known to him, long standing ho of gait dysfunction with known spinal stenosis. numerous visits to other institutions with numerous w/u and mri. Plan: -- Head CT without contrast -- EKG -- Labs -- CBC -- COAGs -- Chest X-ray -- Xray of pelvis -- Urinalysis -- Reassess and disposition Prior Visits: Notes and results from previous visits were reviewed. Progress Notes: 11/26/18 16:48 EKG: Ordered, reviewed, and independently interpreted the EKG. Rate : 100 BPM Rhythm : NSR Interpretation : No St-t wave changes. 11/26/18 22:29 labs imaging neg. pt in nad. afebrile in er, well appearing. neuro intact. no saddle ansethsisa. updated dr langley with findings. requests close outpt fu. - RAD Interpretation Radiology Orders: 11/26/18 16:08 CHEST PORTABLE [RAD] Stat 11/26/18 16:09 HEAD W/O CONTRAST [CT] Stat 11/26/18 16:10 PELVIS ONE VIEW [RAD] Stat - Scribe Statement The provider has reviewed the documentation as recorded by the Scribe Bree Shaver All medical record entries made by the Scribe were at my direction and personally dictated by me. I have reviewed the chart and agree that the record accurately reflects my personal performance of the history, physical exam, medical decision making, and the department course for this patient. I have also personally directed, reviewed, and agree with the discharge instructions and disposition. Disposition/Present on Arrival - Present on Arrival Any Indicators Present on Arrival: No History of DVT/PE: Yes History of Uncontrolled Diabetes: No Urinary Catheter: No History of Decub. Ulcer: No History Surgical Site Infection Following: None - Disposition Have Diagnosis and Disposition been Completed?: Yes Diagnosis: Fall, Gait difficulty Disposition: HOME/ ROUTINE Disposition Time: 20:00 Patient Problems: Current Active Problems Problem Status Onset Fall Acute Condition: STABLE Discharge Instructions (ExitCare): Preventing Falls in the Older Adult Additional Instructions: follow up with dr langley. return to er with worsening Referrals: Kian Langley MD [Primary Care Provider] - Follow up with primary Forms: [employer] (Puerto Rican)
[2018-11-26 16:30] LABS: ALB/GLOB RATIO 1.3 (1.1-1.8); ALBUMIN 3.7 g/dL (3.0-4.8); ALT/SGPT 26 U/L (7-56); AST/SGOT 22 U/L (17-59); BLOOD UREA NITROGEN 25 mg/dL (7-21); CALCIUM 8.9 mg/dL (8.4-10.5); GFR NON-AFRICAN AMERICAN > 60
[2018-11-26 16:41] LABS: TROPONIN I < 0.01 ng/mL
[2018-11-26 17:22] LABS: ANISOCYTOSIS 1+; LYMPHOCYTE 6 % (22.0-35.0); MONOCYTE 2 % (1.0-6.0); NEUTROPHIL 92 % (50.0-70.0); PLATELET ESTIMATE SL.DEC (NORMAL)
[2018-11-26 17:23] LABS: INR 1.35; PARTIAL THROMBOPLASTIN TIME 35.4 Seconds (26.9-38.3)
--- NOTE | 2018-11-26 18:39 | CT ---
Date of service: 11/26/2018 PROCEDURE: CT HEAD WITHOUT CONTRAST. HISTORY: syncope/weakness COMPARISON: Noncontrast head CT performed 05/22/17 TECHNIQUE: Axial computed tomography images were obtained through the head/brain without intravenous contrast. Radiation dose: Total exam DLP = 1036.65 mGy-cm. This CT exam was performed using one or more of the following dose reduction techniques: Automated exposure control, adjustment of the mA and/or kV according to patient size, and/or use of iterative reconstruction technique. FINDINGS: HEMORRHAGE: No intracranial hemorrhage. BRAIN: Diffuse atrophy with prominence of the ventricles and sulci noted. No mass effect or edema. Intracranial atherosclerosis. Scattered periventricular and subcortical white matter hypodensities, which are nonspecific, but often seen with chronic microvascular ischemic disease. Tiny chronic appearing pontine lacunar type infarct. Please note that MRI with diffusion imaging is more sensitive in the detection of acute ischemic event. VENTRICLES: No evidence of obstructive type hydrocephalus. CALVARIUM: Unremarkable. PARANASAL SINUSES: Unremarkable as visualized. No significant inflammatory changes. MASTOID AIR CELLS: Unremarkable as visualized. No inflammatory changes. OTHER FINDINGS: None. IMPRESSION: Overall appearance similar to prior study. Moderate nonspecific white matter changes. Moderate central volume loss. 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
[2018-11-26 20:02] VITALS: BP 95/67; PULSE 90; TEMP 98.1; O2SAT 100
--- NOTE | 2018-11-26 20:11 | CARD ---
APPROVED REPORT Date of service: 11/26/2018 EKG Measurement Heart [id number] SD 192P23 [id number] <Conclusion> Normal sinus rhythm Left anterior fascicular block Abnormal ECG
--- NOTE | 2018-11-27 18:28 | RAD ---
Date of service: 11/26/2018 PROCEDURE: Pelvis and right hip. HISTORY: fall COMPARISON: Comparison made with prior study 05/22/2017 TECHNIQUE: AP view of the pelvis both hips and frogleg lateral view right hip FINDINGS: No evidence of acute displaced fracture nor dislocation. The osseous structures appear intact. Mild degenerative changes both hip joints note that the upper pelvis is not well delineated due to significant overlying bowel related artifact and patent S IMPRESSION: No acute fracture nor dislocation. Mild DJD both hip joints.
--- NOTE | 2018-11-27 18:28 | RAD ---
Date of service: 11/26/2018 HISTORY: Generalized weakness COMPARISON: Comparison chest 05/22/2017 FINDINGS: LUNGS: Bibasilar atelectasis left greater than right. Developing infiltrates could be excluded with follow-up radiographs PLEURA: No significant pleural effusion identified, no pneumothorax apparent. CARDIOVASCULAR: Suspect minimal aortic atherosclerotic calcification present. Cardiomegaly. No pulmonary vascular congestion. OSSEOUS STRUCTURES: No significant abnormalities. VISUALIZED UPPER ABDOMEN: Normal. OTHER FINDINGS: None. IMPRESSION: Bibasilar atelectasis left greater than right. Developing infiltrates could be excluded with follow-up radiographs
--- NOTE | 2018-11-27 18:31 | RAD ---
Date of service: 11/26/2018 PROCEDURE: Right femur HISTORY: Fall COMPARISON: TECHNIQUE: AP and lateral views of the right femur performed FINDINGS: No evidence of acute displaced fracture nor dislocation. The osseous structures intact. Soft tissues appear grossly unremarkable. No radiopaque foreign bodies. No subcutaneous emphysema. IMPRESSION: No evidence of acute displaced fracture nor dislocation
== END 2018-11-26 20:19 | disposition home or self-care (01) ==
LOC: ED 15:24
DX: R26.2 Difficulty in walking, not elsewhere classified (principal); E11.9 Type 2 diabetes mellitus without complications; I10 Essential (primary) hypertension; Z86.718 Personal history of other venous thrombosis and embolism; Z79.01 Long term (current) use of anticoagulants; I48.91 Unspecified atrial fibrillation